=== PATIENT | male | born 1950 | race Caucasian/White ===

== ENCOUNTER 2017-07-09 14:57 | Inpatient (IN) | payer MEDICARE, MEDICAID ==
[~2017-07-09] VITALS: Ht 180.3 cm; Wt 136.4 kg
[~2017-07-09 14:57] MED LIST: ASPI-107 PO; ATOR40TA PO; COMIN IH; DILT240C94 PO; FURO40TA4 PO; GABA-532 PO; GLIM1TAB46 PO; LEVO500T2 PO; LOSA50TA3 PO; METF500T PO; METO25TA6 PO; OMEP40CA37 PO; POTA10TA19 PO; PRED10TA23 PO; RIVA20TA PO
[2017-07-09] MEDS ORDERED: CefTRIAXone 2gm/NS 100ml IVPB 100 ML IV ONE (16:15)
[2017-07-09] MEDS ORDERED: vancomycin/NS 1 GM ADD-VANTAGE 250 ML IV ONE (16:15)
[2017-07-09] MEDS ORDERED: normal saline 1000ML IV soln IV ONE (16:15)
[2017-07-09] MEDS ORDERED: CefTRIAXone/dextrose 2GM bag 50 ML IV ONE (16:25)
[2017-07-09 16:58] LABS: BASOPHILS % (AUTO) 0.1 % (0-1); EOSINOPHILS # (AUTO) 0.3 X10'3 (0-0.9); EOSINOPHILS % (AUTO) 2.3 % (0-6); HEMATOCRIT 36.1 % (42.0-52.0); HEMOGLOBIN 10.7 g/dl (14.0-17.9); LYMPHOCYTES # (AUTO) 0.7 X10'3 (1.1-4.8); LYMPHOCYTES % (AUTO) 5.5 % (21-51); MEAN CORPUSCULAR HEMOGLOBIN 21.5 PG (27.0-31.0); MEAN CORPUSCULAR HGB CONC 29.7 % (33.0-36.5); MEAN CORPUSCULAR VOLUME 72.6 FL (78-98); MEAN PLATELET VOLUME 8.6 FL (7.4-10.4); MONOCYTES # (AUTO) 0.9 X10'3 (0-0.9); MONOCYTES % (AUTO) 6.5 % (2-12); NEUTROPHILS # (AUTO) 11.5 X10'3 (1.8-7.7); NEUTROPHILS % (AUTO) 85.6 % (42-75); PLATELET COUNT 449 X10'3 (140-440); RED BLOOD COUNT 4.98 X10'6 (4.70-6.10); RED CELL DISTRIBUTION WIDTH 20.4 % (11.5-14.5); WHITE BLOOD COUNT 13.5 X10'3 (4.5-11.0)
[2017-07-09 17:04] LABS: INR 1.1 INR; PARTIAL THROMBOPLASTIN TIME 26 SECONDS (22-32); PROTHROMBIN TIME 11.3 SECONDS (9.0-12.0)
[2017-07-09 17:10] LABS: ANISOCYTOSIS 2+; PLATELET ESTIMATE INCREASED
[2017-07-09 17:11] LABS: ELLIPTOCYTES 2+
[2017-07-09 17:12] LABS: POIKILOCYTOSIS FEW; TEAR DROP CELLS 1+
[2017-07-09 17:13] LABS: HYPOCHROMASIA 1+; MICROCYTOSIS 1+; POLYCHROMASIA FEW
[2017-07-09 17:19] LABS: ALANINE AMINOTRANSFERASE 28 U/L (12-78); ALBUMIN 3.2 G/DL (3.4-5.0); ALBUMIN/GLOBULIN RATIO 0.9 (1.1-1.5); ALKALINE PHOSPHATASE 80 IU/L (46-116); ANION GAP 4 (8-16); ASPARTATE AMINO TRANSFERASE 13 U/L (10-37); BILIRUBIN,TOTAL 0.4 MG/DL (0.1-1.0); BLOOD UREA NITROGEN 16 MG/DL (7-18); BUN/CREATININE RATIO 13.7 (5.4-32.0); CALCIUM 9.7 MG/DL (8.5-10.1); CHLORIDE 102 MMOL/L (99-107); CREATININE 1.17 MG/DL (0.60-1.10); GLUCOSE 238 MG/DL (70-104); MAGNESIUM 1.9 MG/DL (1.5-2.4); POTASSIUM 4.8 MMOL/L (3.5-5.1); SODIUM 145 MMOL/L (135-145); TOTAL CARBON DIOXIDE 39.2 MMOL/L (24-32); TOTAL PROTEIN 6.9 G/DL (6.4-8.2); eGFR 63 ML/MIN
[2017-07-09] MEDS ORDERED: mag hydrox/Alum hydrox/simeth 30ml oral suspension PO PRN (17:50)
[2017-07-09] MEDS ORDERED: diphenhydrAMINE 50 mg/ml inj IV PRN (17:50)
[2017-07-09] MEDS ORDERED: ondansetron/PF 4mg/2ml inj IV PRN (17:50)
[2017-07-09] MEDS ORDERED: bisacodyl 10mg suppository rectal RC PRN (17:50)
[2017-07-09] MEDS ORDERED: diphenhydrAMINE 25mg capsule PO PRN (17:50)
[2017-07-09] MEDS ORDERED: HYDROcodone/acetaminophen 5mg/325mg tablet PO PRN (17:50)
[2017-07-09] MEDS ORDERED: glucagon, human recombinant 1mg kit SUBCUT PRN (17:50)
[2017-07-09] MEDS ORDERED: dextrose 50%-water 50ml dispensing syringe IV PRN ×2 (17:50)
[2017-07-09] MEDS ORDERED: HYDROmorphone 1 mg/ml syringe IV PRN ×2 (17:50)
[2017-07-09] MEDS ORDERED: dextrose ORAL solution 15 GM/59 ML bottle PO PRN ×2 (17:50)
[2017-07-09] MEDS ORDERED: magnesium hydroxide 30ml (MOM) UD suspension PO PRN (17:50)
[2017-07-09] MEDS ORDERED: acetaminophen 325mg tablet PO PRN ×2 (17:50)
[2017-07-09] MEDS ORDERED: metoclopramide 5 mg/ml inj IV PRN (17:50)
[2017-07-09] MEDS ORDERED: acetaminophen 650mg rectal suppository RC PRN (17:50)
[2017-07-09] MEDS ORDERED: MESSAGE TO PHARMACY PO ONE (17:50)
[2017-07-09] MEDS ORDERED: ipratropium/albuterol 3ml nebule IH PRN (17:55)
[2017-07-09] MEDS ORDERED: piperacillin/tazo 4.5gm/100ml 100 ML IV SCH (18:05)
[2017-07-09] MEDS: HYDROcodone/acetaminophen 10/325mg tab PO PRN ×2 (18:41→23:15)
[2017-07-09] MEDS ORDERED: vancomycin/NS 1 GM ADD-VANTAGE 250 ML IV SCH (20:00)
[2017-07-09] MEDS: metoprolol tartrate 25mg tablet PO SCH (20:00)
[2017-07-09] MEDS: gabapentin 300mg capsule PO SCH (20:04)
[2017-07-09] MEDS: docusate sod 100mg capsule PO SCH (20:05)
[2017-07-09] MEDS ORDERED: temazepam 15mg capsule PO PRN (21:00)
[2017-07-09] MEDS: rivaroxaban 20mg tablet PO SCH (21:13)
[2017-07-09] MEDS: Insulin Detemir pen SQ SCH (21:28)
[2017-07-09 22:30] VITALS: BP 139/93
[2017-07-10] MEDS ORDERED: piperacillin/tazo 4.5gm/100ml 100 ML IV ONE (02:43)
[2017-07-10] MEDS: piperacillin/tazo 4.5gm/100ml 100 ML IV SCH ×3 (02:50→20:59)
[2017-07-10 05:14] LABS: BASOPHILS % (AUTO) 0 % (0-1); EOSINOPHILS # (AUTO) 0.2 X10'3 (0-0.9); HEMATOCRIT 33.7 % (42.0-52.0); HEMOGLOBIN 9.7 g/dl (14.0-17.9); LYMPHOCYTES # (AUTO) 1.1 X10'3 (1.1-4.8); LYMPHOCYTES % (AUTO) 10.2 % (21-51); MEAN CORPUSCULAR HEMOGLOBIN 21.4 PG (27.0-31.0); MEAN CORPUSCULAR HGB CONC 28.7 % (33.0-36.5); MEAN CORPUSCULAR VOLUME 74.6 FL (78-98); MEAN PLATELET VOLUME 8.4 FL (7.4-10.4); NEUTROPHILS # (AUTO) 8.6 X10'3 (1.8-7.7); NEUTROPHILS % (AUTO) 78.8 % (42-75); PLATELET COUNT 378 X10'3 (140-440); RED BLOOD COUNT 4.53 X10'6 (4.70-6.10); RED CELL DISTRIBUTION WIDTH 20.6 % (11.5-14.5); WHITE BLOOD COUNT 10.9 X10'3 (4.5-11.0)
[2017-07-10 05:40] LABS: ALANINE AMINOTRANSFERASE 20 U/L (12-78); ALBUMIN 2.7 G/DL (3.4-5.0); ALBUMIN/GLOBULIN RATIO 0.8 (1.1-1.5); ALKALINE PHOSPHATASE 55 IU/L (46-116); ANION GAP 3 (8-16); ASPARTATE AMINO TRANSFERASE 14 U/L (10-37); BILIRUBIN,TOTAL 0.3 MG/DL (0.1-1.0); BLOOD UREA NITROGEN 15 MG/DL (7-18); CALCIUM 8.6 MG/DL (8.5-10.1); CHLORIDE 106 MMOL/L (99-107); CREATININE 0.88 MG/DL (0.60-1.10); GLUCOSE 158 MG/DL (70-104); POTASSIUM 4.5 MMOL/L (3.5-5.1); SODIUM 143 MMOL/L (135-145); TOTAL CARBON DIOXIDE 33.7 MMOL/L (24-32); TOTAL PROTEIN 6.1 G/DL (6.4-8.2); eGFR 87 ML/MIN
[2017-07-10 07:00] VITALS: BP 138/91
[2017-07-10] MEDS: pantoprazole 40mg Tablet.DR PO SCH (07:54)
[2017-07-10] MEDS: aspirin 81mg tab.chew PO SCH (07:54)
[2017-07-10] MEDS: metoprolol tartrate 25mg tablet PO SCH ×2 (07:54→21:00)
[2017-07-10] MEDS: atorvastatin 20mg tablet PO SCH (07:54)
[2017-07-10] MEDS: diltiazem CD 120mg capsule (once-daily) PO SCH (07:55)
[2017-07-10] MEDS: docusate sod 100mg capsule PO SCH ×2 (07:55→20:00)
[2017-07-10] MEDS: gabapentin 300mg capsule PO SCH ×2 (07:55→21:00)
[2017-07-10] MEDS: losartan 50mg tablet PO SCH (07:55)
[2017-07-10 11:00] VITALS: BP 141/79
[2017-07-10] MEDS: HYDROcodone/acetaminophen 10/325mg tab PO PRN (12:14)
[2017-07-10] MEDS: insulin Lispro (HumaLOG) vial - multi-dose SQ SCH ×2 (13:21→19:12)
[2017-07-10] MEDS: lactobacillus rhamnosus 10,000 MMU CELLS/CAPSULE PO SCH (17:37)
[2017-07-10 19:25] VITALS: BP 141/88
[2017-07-10] MEDS: rivaroxaban 20mg tablet PO SCH (21:00)
[2017-07-10] MEDS: Insulin Detemir pen SQ SCH (21:18)
[2017-07-11] VITALS: BP 126/60
[2017-07-11] MEDS ORDERED: piperacillin/tazo 4.5gm/100ml 100 ML IV ONE (04:36)
[2017-07-11] MEDS: piperacillin/tazo 4.5gm/100ml 100 ML IV SCH ×3 (04:40→19:57)
[2017-07-11 06:07] LABS: BASOPHILS % (AUTO) 0.1 % (0-1); EOSINOPHILS # (AUTO) 0.3 X10'3 (0-0.9); EOSINOPHILS % (AUTO) 3.5 % (0-6); HEMATOCRIT 33.1 % (42.0-52.0); HEMOGLOBIN 9.7 g/dl (14.0-17.9); LYMPHOCYTES # (AUTO) 1.1 X10'3 (1.1-4.8); LYMPHOCYTES % (AUTO) 11.2 % (21-51); MEAN CORPUSCULAR HEMOGLOBIN 21.4 PG (27.0-31.0); MEAN CORPUSCULAR HGB CONC 29.2 % (33.0-36.5); MEAN CORPUSCULAR VOLUME 73.4 FL (78-98); MEAN PLATELET VOLUME 8.5 FL (7.4-10.4); MONOCYTES # (AUTO) 0.8 X10'3 (0-0.9); MONOCYTES % (AUTO) 8.4 % (2-12); NEUTROPHILS # (AUTO) 7.5 X10'3 (1.8-7.7); NEUTROPHILS % (AUTO) 76.8 % (42-75); PLATELET COUNT 378 X10'3 (140-440); RED BLOOD COUNT 4.51 X10'6 (4.70-6.10); RED CELL DISTRIBUTION WIDTH 20.9 % (11.5-14.5); WHITE BLOOD COUNT 9.8 X10'3 (4.5-11.0)
[2017-07-11 06:57] LABS: ALANINE AMINOTRANSFERASE 16 U/L (12-78); ALBUMIN 2.9 G/DL (3.4-5.0); ALBUMIN/GLOBULIN RATIO 0.8 (1.1-1.5); ALKALINE PHOSPHATASE 49 IU/L (46-116); ANION GAP 3 (8-16); ASPARTATE AMINO TRANSFERASE 9 U/L (10-37); BILIRUBIN,TOTAL 0.4 MG/DL (0.1-1.0); BLOOD UREA NITROGEN 13 MG/DL (7-18); BUN/CREATININE RATIO 14.3 (5.4-32.0); CHLORIDE 106 MMOL/L (99-107); CREATININE 0.91 MG/DL (0.60-1.10); GLUCOSE 115 MG/DL (70-104); SODIUM 146 MMOL/L (135-145); TOTAL CARBON DIOXIDE 36.7 MMOL/L (24-32); TOTAL PROTEIN 6.4 G/DL (6.4-8.2); eGFR 84 ML/MIN
[2017-07-11] MEDS: lactobacillus rhamnosus 10,000 MMU CELLS/CAPSULE PO SCH (07:30)
[2017-07-11 07:50] VITALS: BP 140/89
[2017-07-11] MEDS: docusate sod 100mg capsule PO SCH ×2 (08:00→20:00)
[2017-07-11] MEDS: metoprolol tartrate 25mg tablet PO SCH ×2 (08:08→22:10)
[2017-07-11] MEDS: insulin Lispro (HumaLOG) vial - multi-dose SQ SCH ×3 (08:08→19:29)
[2017-07-11] MEDS: losartan 50mg tablet PO SCH (08:08)
[2017-07-11] MEDS: diltiazem CD 120mg capsule (once-daily) PO SCH (08:08)
[2017-07-11] MEDS: gabapentin 300mg capsule PO SCH ×2 (08:08→22:11)
[2017-07-11] MEDS: aspirin 81mg tab.chew PO SCH (08:09)
[2017-07-11] MEDS: atorvastatin 20mg tablet PO SCH (08:09)
[2017-07-11] MEDS: pantoprazole 40mg Tablet.DR PO SCH (08:09)
[2017-07-11] MEDS: silver sulfadiazine cream 400gm jar TP SCH (08:10)
[2017-07-11 08:36] LABS: CLARITY,URINE SLIGHTLY CLOUDY (Clear); COLOR,URINE YELLOW (Yellow); GLUCOSE, URINE NEGATIVE (Neg); KETONES,URINE NEGATIVE (Neg); LEUKOCYTE ESTERASE ,URINE NEGATIVE (Neg); NITRITES, URINE NEGATIVE (Neg); OCCULT BLOOD,URINE NEGATIVE (Neg); PH,URINE 5.5 (4.8-8.0); PROTEIN,URINE TRACE mg/dl (Neg); UROBILINOGEN,URINE 0.2 E.U/dL (0.2-1.0)
[2017-07-11 08:37] LABS: UA COLLECTION TYPE URINAL
[2017-07-11 08:51] LABS: CAL OXALATE CRYSTALS 4+ /HPF (NEGATIVE)
[2017-07-11 08:53] LABS: URIC ACID CRYSTALS FEW /HPF (NEGATIVE)
[2017-07-11 08:54] LABS: BACTERIA,URINE FEW /HPF (Neg); MUCUS STRANDS FEW /LPF (Neg); RBC,URINE 0-2 /HPF (0-2); SQUAMOUS EPITHELIAL CELL,UR FEW /LPF (FEW); TRANSITIONAL EPI CELLS,URINE FEW /HPF; WBC,URINE 0-4 /HPF (0-4)
[2017-07-11] MEDS ORDERED: VANCOMYCIN LEVEL IV ONE (09:30)
[2017-07-11 11:00] VITALS: BP 127/80
[2017-07-11] MEDS ORDERED: furosemide 40mg/4ml inj IV ONE (16:10)
[2017-07-11 19:20] VITALS: BP 150/65
[2017-07-11] MEDS: rivaroxaban 20mg tablet PO SCH (22:10)
[2017-07-11] MEDS: furosemide 40mg/4ml inj IV SCH (22:10)
[2017-07-11] MEDS: Insulin Detemir pen SQ SCH (22:10)
[2017-07-11 23:45] VITALS: BP 152/88
[2017-07-12] MEDS: piperacillin/tazo 4.5gm/100ml 100 ML IV SCH ×2 (04:15→13:30)
[2017-07-12 06:00] LABS: BASOPHILS % (AUTO) 0 % (0-1); EOSINOPHILS # (AUTO) 0.3 X10'3 (0-0.9); EOSINOPHILS % (AUTO) 3.6 % (0-6); HEMATOCRIT 32.8 % (42.0-52.0); HEMOGLOBIN 9.7 g/dl (14.0-17.9); LYMPHOCYTES # (AUTO) 0.7 X10'3 (1.1-4.8); LYMPHOCYTES % (AUTO) 7.5 % (21-51); MEAN CORPUSCULAR HEMOGLOBIN 21.6 PG (27.0-31.0); MEAN CORPUSCULAR HGB CONC 29.5 % (33.0-36.5); MEAN CORPUSCULAR VOLUME 73.2 FL (78-98); MEAN PLATELET VOLUME 8.3 FL (7.4-10.4); MONOCYTES # (AUTO) 0.9 X10'3 (0-0.9); MONOCYTES % (AUTO) 9.6 % (2-12); NEUTROPHILS # (AUTO) 7.2 X10'3 (1.8-7.7); NEUTROPHILS % (AUTO) 79.3 % (42-75); PLATELET COUNT 373 X10'3 (140-440); RED BLOOD COUNT 4.48 X10'6 (4.70-6.10); WHITE BLOOD COUNT 9.1 X10'3 (4.5-11.0)
[2017-07-12 06:20] LABS: ALANINE AMINOTRANSFERASE 30 U/L (12-78); ALBUMIN 2.8 G/DL (3.4-5.0); ALBUMIN/GLOBULIN RATIO 0.8 (1.1-1.5); ALKALINE PHOSPHATASE 49 IU/L (46-116); ANION GAP 2 (8-16); ASPARTATE AMINO TRANSFERASE 21 U/L (10-37); BILIRUBIN,TOTAL 0.3 MG/DL (0.1-1.0); BLOOD UREA NITROGEN 9 MG/DL (7-18); BUN/CREATININE RATIO 9.3 (5.4-32.0); CALCIUM 8.5 MG/DL (8.5-10.1); CHLORIDE 106 MMOL/L (99-107); CREATININE 0.97 MG/DL (0.60-1.10); GLUCOSE 130 MG/DL (70-104); SODIUM 147 MMOL/L (135-145); TOTAL CARBON DIOXIDE 39.4 MMOL/L (24-32); TOTAL PROTEIN 6.3 G/DL (6.4-8.2); eGFR 78 ML/MIN
[2017-07-12 07:00] VITALS: BP 116/70
[2017-07-12] MEDS: LACTOBACILLUS RHAMNOSUS GG 15 billion unit sprinkle caps PO SCH (08:41)
[2017-07-12] MEDS: furosemide 40mg/4ml inj IV SCH ×2 (08:41→20:36)
[2017-07-12] MEDS: docusate sod 100mg capsule PO SCH ×2 (08:42→20:00)
[2017-07-12] MEDS: atorvastatin 20mg tablet PO SCH (08:42)
[2017-07-12] MEDS: metoprolol tartrate 25mg tablet PO SCH ×2 (08:42→20:36)
[2017-07-12] MEDS: diltiazem CD 120mg capsule (once-daily) PO SCH (08:42)
[2017-07-12] MEDS: aspirin 81mg tab.chew PO SCH (08:42)
[2017-07-12] MEDS: pantoprazole 40mg Tablet.DR PO SCH (08:43)
[2017-07-12] MEDS: gabapentin 300mg capsule PO SCH ×2 (08:43→20:36)
[2017-07-12] MEDS: losartan 50mg tablet PO SCH (08:43)
[2017-07-12] MEDS: insulin Lispro (HumaLOG) vial - multi-dose SQ SCH ×3 (09:36→19:13)
[2017-07-12 11:00] VITALS: BP 112/75
[2017-07-12] MEDS: HYDROcodone/acetaminophen 10/325mg tab PO PRN ×2 (14:33→20:36)
[2017-07-12] MEDS: silver sulfadiazine cream 400gm jar TP SCH (16:00)
[2017-07-12] MEDS: CefTRIAXone 2gm/D5W 50ml ADVTG 50 ML IV SCH (16:54)
[2017-07-12 18:00] VITALS: BP 110/68
[2017-07-12] MEDS: rivaroxaban 20mg tablet PO SCH (20:36)
[2017-07-12] MEDS: Insulin Detemir pen SQ SCH (21:20)
[2017-07-12 23:44] VITALS: BP 119/73
[2017-07-13] MEDS: HYDROcodone/acetaminophen 10/325mg tab PO PRN ×5 (02:30→21:56)
[2017-07-13 05:17] LABS: BASOPHILS % (AUTO) 0 % (0-1); EOSINOPHILS # (AUTO) 0.2 X10'3 (0-0.9); EOSINOPHILS % (AUTO) 2.8 % (0-6); HEMATOCRIT 32.3 % (42.0-52.0); HEMOGLOBIN 9.5 g/dl (14.0-17.9); LYMPHOCYTES % (AUTO) 12.1 % (21-51); MEAN CORPUSCULAR HEMOGLOBIN 21.6 PG (27.0-31.0); MEAN CORPUSCULAR HGB CONC 29.5 % (33.0-36.5); MEAN CORPUSCULAR VOLUME 73.2 FL (78-98); MEAN PLATELET VOLUME 8.4 FL (7.4-10.4); MONOCYTES # (AUTO) 0.7 X10'3 (0-0.9); MONOCYTES % (AUTO) 8.6 % (2-12); NEUTROPHILS # (AUTO) 6.4 X10'3 (1.8-7.7); NEUTROPHILS % (AUTO) 76.5 % (42-75); PLATELET COUNT 388 X10'3 (140-440); RED BLOOD COUNT 4.41 X10'6 (4.70-6.10); RED CELL DISTRIBUTION WIDTH 20.3 % (11.5-14.5); WHITE BLOOD COUNT 8.4 X10'3 (4.5-11.0)
[2017-07-13 06:06] LABS: ALANINE AMINOTRANSFERASE 32 U/L (12-78); ALBUMIN 2.6 G/DL (3.4-5.0); ALBUMIN/GLOBULIN RATIO 0.7 (1.1-1.5); ALKALINE PHOSPHATASE 48 IU/L (46-116); ANION GAP 3 (8-16); ASPARTATE AMINO TRANSFERASE 16 U/L (10-37); BILIRUBIN,TOTAL 0.4 MG/DL (0.1-1.0); BLOOD UREA NITROGEN 15 MG/DL (7-18); BUN/CREATININE RATIO 15.2 (5.4-32.0); CALCIUM 8.8 MG/DL (8.5-10.1); CHLORIDE 106 MMOL/L (99-107); CREATININE 0.99 MG/DL (0.60-1.10); GLUCOSE 139 MG/DL (70-104); POTASSIUM 3.9 MMOL/L (3.5-5.1); SODIUM 148 MMOL/L (135-145); TOTAL CARBON DIOXIDE 38.7 MMOL/L (24-32); TOTAL PROTEIN 6.3 G/DL (6.4-8.2); eGFR 76 ML/MIN
[2017-07-13 06:30] VITALS: BP 134/77
[2017-07-13] MEDS: CefTRIAXone 2gm/D5W 50ml ADVTG 50 ML IV SCH (07:39)
[2017-07-13] MEDS: LACTOBACILLUS RHAMNOSUS GG 15 billion unit sprinkle caps PO SCH (07:39)
[2017-07-13] MEDS: gabapentin 300mg capsule PO SCH ×2 (07:39→19:53)
[2017-07-13] MEDS: pantoprazole 40mg Tablet.DR PO SCH (07:39)
[2017-07-13] MEDS: aspirin 81mg tab.chew PO SCH (07:40)
[2017-07-13] MEDS: losartan 50mg tablet PO SCH (07:40)
[2017-07-13] MEDS: atorvastatin 20mg tablet PO SCH (07:40)
[2017-07-13] MEDS: furosemide 40mg/4ml inj IV SCH ×3 (07:40→21:55)
[2017-07-13] MEDS: metoprolol tartrate 25mg tablet PO SCH ×2 (07:45→19:58)
[2017-07-13 07:48] LABS: ANISOCYTOSIS 2+; HYPOCHROMASIA 1+; MICROCYTOSIS 2+; PLATELET ESTIMATE NORMAL; POIKILOCYTOSIS FEW
[2017-07-13] MEDS: docusate sod 100mg capsule PO SCH ×2 (07:48→20:00)
[2017-07-13] MEDS: diltiazem CD 120mg capsule (once-daily) PO SCH (07:48)
[2017-07-13 07:49] LABS: ACANTHOCYTES FEW; ELLIPTOCYTES 1+; STOMATOCYTES 1+
[2017-07-13] MEDS: silver sulfadiazine cream 400gm jar TP SCH (07:55)
[2017-07-13] MEDS: insulin Lispro (HumaLOG) vial - multi-dose SQ SCH ×3 (09:09→19:56)
[2017-07-13] MEDS ORDERED: VANCOMYCIN LEVEL IV NR (09:30)
[2017-07-13 11:00] VITALS: BP 118/72
[2017-07-13 18:00] VITALS: BP 120/66
[2017-07-13] MEDS: vancomycin/NS 1 GM ADD-VANTAGE 250 ML IV SCH (19:52)
[2017-07-13] MEDS: rivaroxaban 20mg tablet PO SCH (21:51)
[2017-07-13] MEDS: Insulin Detemir pen SQ SCH (21:53)
[2017-07-14] VITALS: BP 133/80
[2017-07-14] MEDS: HYDROcodone/acetaminophen 10/325mg tab PO PRN ×5 (02:01→22:00)
[2017-07-14] MEDS: vancomycin/NS 1 GM ADD-VANTAGE 250 ML IV SCH ×3 (03:32→19:00)
[2017-07-14 05:37] LABS: BASOPHILS % (AUTO) 0.2 % (0-1); EOSINOPHILS # (AUTO) 0.2 X10'3 (0-0.9); EOSINOPHILS % (AUTO) 1.9 % (0-6); HEMATOCRIT 32.7 % (42.0-52.0); HEMOGLOBIN 9.7 g/dl (14.0-17.9); LYMPHOCYTES % (AUTO) 11.3 % (21-51); MEAN CORPUSCULAR HEMOGLOBIN 21.7 PG (27.0-31.0); MEAN CORPUSCULAR HGB CONC 29.8 % (33.0-36.5); MEAN CORPUSCULAR VOLUME 72.7 FL (78-98); MEAN PLATELET VOLUME 8.4 FL (7.4-10.4); MONOCYTES # (AUTO) 0.8 X10'3 (0-0.9); NEUTROPHILS # (AUTO) 6.6 X10'3 (1.8-7.7); NEUTROPHILS % (AUTO) 77.6 % (42-75); PLATELET COUNT 396 X10'3 (140-440); RED CELL DISTRIBUTION WIDTH 21.2 % (11.5-14.5); WHITE BLOOD COUNT 8.5 X10'3 (4.5-11.0)
[2017-07-14 06:15] LABS: ALANINE AMINOTRANSFERASE 32 U/L (12-78); ALBUMIN 2.8 G/DL (3.4-5.0); ALBUMIN/GLOBULIN RATIO 0.7 (1.1-1.5); ALKALINE PHOSPHATASE 46 IU/L (46-116); ANION GAP 3 (8-16); ASPARTATE AMINO TRANSFERASE 18 U/L (10-37); BILIRUBIN,TOTAL 0.3 MG/DL (0.1-1.0); BLOOD UREA NITROGEN 16 MG/DL (7-18); BUN/CREATININE RATIO 17.4 (5.4-32.0); CALCIUM 9.1 MG/DL (8.5-10.1); CHLORIDE 103 MMOL/L (99-107); CREATININE 0.92 MG/DL (0.60-1.10); GLUCOSE 134 MG/DL (70-104); POTASSIUM 3.5 MMOL/L (3.5-5.1); SODIUM 145 MMOL/L (135-145); TOTAL CARBON DIOXIDE 39.2 MMOL/L (24-32); TOTAL PROTEIN 6.7 G/DL (6.4-8.2); eGFR 83 ML/MIN
[2017-07-14 06:30] VITALS: BP 144/78
[2017-07-14] MEDS: metoprolol tartrate 25mg tablet PO SCH ×2 (07:37→20:32)
[2017-07-14] MEDS: gabapentin 300mg capsule PO SCH ×2 (07:37→20:32)
[2017-07-14] MEDS: aspirin 81mg tab.chew PO SCH (07:37)
[2017-07-14] MEDS: docusate sod 100mg capsule PO SCH ×3 (07:37→20:00)
[2017-07-14] MEDS: LACTOBACILLUS RHAMNOSUS GG 15 billion unit sprinkle caps PO SCH (07:38)
[2017-07-14] MEDS: diltiazem CD 120mg capsule (once-daily) PO SCH (07:38)
[2017-07-14] MEDS: atorvastatin 20mg tablet PO SCH (07:38)
[2017-07-14] MEDS: pantoprazole 40mg Tablet.DR PO SCH (07:38)
[2017-07-14] MEDS: furosemide 40mg/4ml inj IV SCH ×3 (07:39→20:31)
[2017-07-14] MEDS: CefTRIAXone 2gm/D5W 50ml ADVTG 50 ML IV SCH (07:39)
[2017-07-14] MEDS: losartan 50mg tablet PO SCH (07:39)
[2017-07-14] MEDS: silver sulfadiazine cream 400gm jar TP SCH (07:51)
[2017-07-14] MEDS: insulin Lispro (HumaLOG) vial - multi-dose SQ SCH ×3 (09:08→18:47)
[2017-07-14 12:00] VITALS: BP 126/77
[2017-07-14] MEDS ORDERED: VANCOMYCIN LEVEL IV NR (18:30)
[2017-07-14 20:00] VITALS: BP 127/88
[2017-07-14] MEDS: rivaroxaban 20mg tablet PO SCH (20:32)
[2017-07-14] MEDS: Insulin Detemir pen SQ SCH (21:20)
[2017-07-15] VITALS: BP 118/72
[2017-07-15] MEDS: HYDROcodone/acetaminophen 10/325mg tab PO PRN ×3 (02:42→13:12)
[2017-07-15] MEDS: vancomycin/NS 1 GM ADD-VANTAGE 250 ML IV SCH (03:05)
[2017-07-15 07:10] VITALS: BP 135/76
[2017-07-15] MEDS: pantoprazole 40mg Tablet.DR PO SCH (07:27)
[2017-07-15] MEDS: gabapentin 300mg capsule PO SCH (07:27)
[2017-07-15] MEDS: LACTOBACILLUS RHAMNOSUS GG 15 billion unit sprinkle caps PO SCH (07:27)
[2017-07-15] MEDS: aspirin 81mg tab.chew PO SCH (07:30)
[2017-07-15] MEDS: diltiazem CD 120mg capsule (once-daily) PO SCH (07:30)
[2017-07-15] MEDS: atorvastatin 20mg tablet PO SCH (07:31)
[2017-07-15] MEDS: docusate sod 100mg capsule PO SCH (07:31)
[2017-07-15] MEDS: losartan 50mg tablet PO SCH (07:31)
[2017-07-15] MEDS: metoprolol tartrate 25mg tablet PO SCH (07:31)
[2017-07-15] MEDS: silver sulfadiazine cream 400gm jar TP SCH (07:31)
[2017-07-15] MEDS: furosemide 40mg/4ml inj IV SCH ×2 (08:00→15:20)
[2017-07-15] MEDS: insulin Lispro (HumaLOG) vial - multi-dose SQ SCH ×2 (09:07→13:10)
[2017-07-15] MEDS ORDERED: vancomycin inj 1,250 MG in normal saline 250ml IV soln 250 ML IV SCH (11:00)
[2017-07-15 11:06] VITALS: BP 134/77
[2017-07-15] MEDS: CefTRIAXone 2gm/D5W 50ml ADVTG 50 ML IV SCH (15:20)
[2017-07-16] MEDS ORDERED: VANCOMYCIN LEVEL IV NR (10:30)
== END 2017-07-15 17:10 | DRG 603 ==
LOC: ER 14:57 → ED HOLD 17:55 → SUR 3N 22:30
PROVIDERS: ADMIT Family Medicine; ATTEND Nurse Practitioner Family
DX: L03.115 Cellulitis of right lower limb (principal); I11.0 Hypertensive heart disease with heart failure; E11.65 Type 2 diabetes mellitus with hyperglycemia; I48.91 Unspecified atrial fibrillation; I50.9 Heart failure, unspecified; E66.2 Morbid (severe) obesity with alveolar hypoventilation; Z68.41 Body mass index [BMI] 40.0-44.9, adult; J44.9 Chronic obstructive pulmonary disease, unspecified; L03.116 Cellulitis of left lower limb; X58.XXXA Exposure to other specified factors, initial encounter; L30.8 Other specified dermatitis; N40.0 Benign prostatic hyperplasia without lower urinary tract symptoms; I25.10 Atherosclerotic heart disease of native coronary artery without angina pectoris; S81.802A Unspecified open wound, left lower leg, initial encounter; S81.801A Unspecified open wound, right lower leg, initial encounter; I87.2 Venous insufficiency (chronic) (peripheral); Z95.1 Presence of aortocoronary bypass graft; Z79.01 Long term (current) use of anticoagulants; Z79.82 Long term (current) use of aspirin; Z79.899 Other long term (current) drug therapy; Z79.84 Long term (current) use of oral hypoglycemic drugs; Z87.891 Personal history of nicotine dependence; Z85.89 Personal history of malignant neoplasm of other organs and systems; Y93.89 Activity, other specified; Y92.89 Other specified places as the place of occurrence of the external cause; Y99.8 Other external cause status
CPT/HCPCS: 36415; 71046; 80053; 80202; 81001; 82948; 83605; 83735; 83880; 84145; 85025; 85610; 85730; 87040; 87070; 93970; 94760; 96365; 96375; 97116; 97162; 99285; A6223; A6255; A6258; A6446; J0696; J1940; J2270; J2543; J3370; J7030

== ENCOUNTER 2017-07-30 02:23 | Inpatient (IN) | payer MEDICARE, MEDICAID ==
[~2017-07-30] VITALS: Ht 182.9 cm; Wt 127.8 kg
[2017-07-30] VITALS (20 sets, daily range): BP systolic 90–164; BP diastolic 46–98
[~2017-07-30 02:23] MED LIST changes: -LEVO500T2 PO
[2017-07-30 02:54] LABS: BASOPHILS % (AUTO) 0.4 % (0-1); EOSINOPHILS # (AUTO) 0.2 X10'3 (0-0.9); HEMOGLOBIN 8.6 g/dl (14.0-17.9); LYMPHOCYTES # (AUTO) 1.5 X10'3 (1.1-4.8); LYMPHOCYTES % (AUTO) 12.6 % (21-51); MEAN CORPUSCULAR HEMOGLOBIN 21.5 PG (27.0-31.0); MEAN CORPUSCULAR HGB CONC 28.7 % (33.0-36.5); MEAN CORPUSCULAR VOLUME 74.9 FL (78-98); MEAN PLATELET VOLUME 8.1 FL (7.4-10.4); MONOCYTES # (AUTO) 1.1 X10'3 (0-0.9); MONOCYTES % (AUTO) 9.3 % (2-12); NEUTROPHILS # (AUTO) 8.9 X10'3 (1.8-7.7); NEUTROPHILS % (AUTO) 75.7 % (42-75); PLATELET COUNT 442 X10'3 (140-440); RED BLOOD COUNT 4.01 X10'6 (4.70-6.10); RED CELL DISTRIBUTION WIDTH 21.3 % (11.5-14.5); WHITE BLOOD COUNT 11.8 X10'3 (4.5-11.0)
[2017-07-30] MEDS: propofol 1000mg/100ml bottle 100 ML IV ONE ×2 (03:02→03:04)
[2017-07-30 03:04] LABS: INR 1.6 INR; PARTIAL THROMBOPLASTIN TIME 36 SECONDS (22-32); PROTHROMBIN TIME 16.6 SECONDS (9.0-12.0)
[2017-07-30] MEDS: midazolam 100mg in NS 100ml 100 ML IV PRN ×2 (03:05→11:01)
[2017-07-30] MEDS: FENTANYL-0.9 % NACL/PF 100 ML IV PRN ×4 (03:06→23:23)
[2017-07-30 03:14] LABS: ALANINE AMINOTRANSFERASE 65 U/L (12-78); ALBUMIN/GLOBULIN RATIO 0.7 (1.1-1.5); ALKALINE PHOSPHATASE 75 IU/L (46-116); ANION GAP 2 (8-16); ASPARTATE AMINO TRANSFERASE 27 U/L (10-37); BILIRUBIN,TOTAL 0.9 MG/DL (0.1-1.0); BLOOD UREA NITROGEN 12 MG/DL (7-18); BUN/CREATININE RATIO 13.3 (5.4-32.0); CHLORIDE 106 MMOL/L (99-107); GLUCOSE 164 MG/DL (70-104); MAGNESIUM 1.9 MG/DL (1.5-2.4); POTASSIUM 4.4 MMOL/L (3.5-5.1); SODIUM 149 MMOL/L (135-145); TOTAL PROTEIN 7.1 G/DL (6.4-8.2); eGFR 85 ML/MIN
[2017-07-30 03:15] LABS: ABG BASE EXCESS 15.4 mmol/L (-2.0-3.0); ABG HCO3 43.7 mmol/L (22.0-26.0); ABG OXYGEN SATURATION 98.5 % (95-98); ABG PCO2 (T) 84.6 mmHg (35.0-48.0); ABG PO2 (T) 137.9 mmHg (83-108); ALLEN'S TEST Positive; FCOHb 1.4 % (0.5-1.5); FMetHb 0.3 % (0.3-1.12); FO2Hb 96.8 % (94-100); MINUTE VOLUME 9 L/min; PATIENT TEMPERATURE 36.9; PEEP 5 cm H2O; RESPIRATORY RATE 18 b/min; RESPIRATORY RATE (OBSERVED) 18 b/min; TIDAL VOLUME 500 mL; TOTAL HEMOGLOBIN 8.4 G/dl (14.0-18.0)
[2017-07-30 03:17] LABS: TOTAL CARBON DIOXIDE 40.8 MMOL/L (24-32)
[2017-07-30] MEDS ORDERED: digoxin 250mcg/ml 2ml ampule IV ONE (03:40)
[2017-07-30] MEDS ORDERED: potassium Cl 40MEQ/NS 500ml 500 ML IV PRN (04:00)
[2017-07-30] MEDS ORDERED: magnesium 4gm in 100ml NS 100 ML IV PRN (04:00)
[2017-07-30] MEDS ORDERED: magnesium 2GM in 50ml NS 50 ML IV PRN (04:00)
[2017-07-30] MEDS ORDERED: ipratropium/albuterol 3ml nebule NEB PRN (04:00)
[2017-07-30] MEDS ORDERED: magnesium 2GM in 50ml NS 50 ML IV ONE (04:15)
[2017-07-30] MEDS ORDERED: furosemide 40mg/4ml inj IV ONE (05:05)
[2017-07-30 05:42] LABS: D-DIMER 0.59 MG/L FEU (0-0.50)
[2017-07-30] MEDS: heparin, porcine 5000 units/ml vial SQ SCH ×2 (07:21→20:11)
[2017-07-30] MEDS: pantoprazole 40 MG vial IV SCH (07:21)
[2017-07-30] MEDS ORDERED: chlorhexidine gluconate 15ml Cup****oral rinse MM SCH (08:00)
[2017-07-30] MEDS ORDERED: rocuronium 10mg/ml inj IV ONE (10:00)
[2017-07-30] MEDS ORDERED: etomidate 2mg/ml inj. ONE (10:00)
[2017-07-30] MEDS ORDERED: NORepinephrine 1 mg/ml inj IV ONE (10:00)
[2017-07-30 16:01] LABS: MAGNESIUM 1.8 MG/DL (1.5-2.4); PHOSPHORUS 1.8 MG/DL (2.3-4.5); POTASSIUM 3.4 MMOL/L (3.5-5.1)
[2017-07-30] MEDS ORDERED: sodium phosphate inj. 30 MMOL in dextrose 5%-water 250 ML IV PRN (16:42)
[2017-07-30] MEDS ORDERED: sodium phosphate inj. 15 MMOL in dextrose 5%-water 150 ML IV PRN (16:42)
[2017-07-30] MEDS: potassium Cl 40MEQ/NS 500ml 500 ML IV PRN (18:04)
[2017-07-30] MEDS ORDERED: potassium Cl oral solution 20 MEQ/15 ML PO PRN (23:25)
[2017-07-30] MEDS ORDERED: potassium Cl oral solution 20 MEQ/15 ML OGT PRN (23:25)
[2017-07-31] VITALS (24 sets, daily range): BP systolic 101–170; BP diastolic 54–89
[2017-07-31 04:40] LABS: ABG BASE EXCESS 11.1 mmol/L (-2.0-3.0); ABG HCO3 34.2 mmol/L (22.0-26.0); ABG OXYGEN SATURATION 92.9 % (95-98); ABG PCO2 (T) 39.8 mmHg (35.0-48.0); ABG PH (T) 7.554 (7.350-7.450); ABG PO2 (T) 64.8 mmHg (83-108); ALLEN'S TEST Positive; FCOHb 1.2 % (0.5-1.5); FMetHb 0.3 % (0.3-1.12); FO2Hb 91.5 % (94-100); MINUTE VOLUME 10 L/min; PATIENT TEMPERATURE 37.5; PEEP 5 cm H2O; RESPIRATORY RATE 20 b/min; RESPIRATORY RATE (OBSERVED) 20 b/min; TIDAL VOLUME 500 mL
[2017-07-31 05:27] LABS: BASOPHILS % (AUTO) 0.4 % (0-1); EOSINOPHILS # (AUTO) 0.1 X10'3 (0-0.9); EOSINOPHILS % (AUTO) 1.3 % (0-6); HEMATOCRIT 26.7 % (42.0-52.0); HEMOGLOBIN 8.1 g/dl (14.0-17.9); LYMPHOCYTES % (AUTO) 12.9 % (21-51); MEAN CORPUSCULAR HEMOGLOBIN 21.8 PG (27.0-31.0); MEAN CORPUSCULAR HGB CONC 30.2 % (33.0-36.5); MEAN CORPUSCULAR VOLUME 72.1 FL (78-98); MEAN PLATELET VOLUME 8.9 FL (7.4-10.4); MONOCYTES # (AUTO) 0.8 X10'3 (0-0.9); MONOCYTES % (AUTO) 10.3 % (2-12); NEUTROPHILS # (AUTO) 5.7 X10'3 (1.8-7.7); NEUTROPHILS % (AUTO) 75.1 % (42-75); PLATELET COUNT 377 X10'3 (140-440); RED BLOOD COUNT 3.71 X10'6 (4.70-6.10); RED CELL DISTRIBUTION WIDTH 21.5 % (11.5-14.5); WHITE BLOOD COUNT 7.6 X10'3 (4.5-11.0)
[2017-07-31 05:37] LABS: INR 1.3 INR; PARTIAL THROMBOPLASTIN TIME 33 SECONDS (22-32); PROTHROMBIN TIME 13.3 SECONDS (9.0-12.0)
[2017-07-31 05:56] LABS: ALANINE AMINOTRANSFERASE 38 U/L (12-78); ALBUMIN 2.2 G/DL (3.4-5.0); ALBUMIN/GLOBULIN RATIO 0.6 (1.1-1.5); ALKALINE PHOSPHATASE 58 IU/L (46-116); ANION GAP 7 (8-16); ASPARTATE AMINO TRANSFERASE 17 U/L (10-37); BILIRUBIN,TOTAL 1.2 MG/DL (0.1-1.0); BLOOD UREA NITROGEN 14 MG/DL (7-18); BUN/CREATININE RATIO 17.5 (5.4-32.0); CALCIUM 8.8 MG/DL (8.5-10.1); CHLORIDE 106 MMOL/L (99-107); GLUCOSE 105 MG/DL (70-104); MAGNESIUM 1.6 MG/DL (1.5-2.4); POTASSIUM 3.6 MMOL/L (3.5-5.1); SODIUM 147 MMOL/L (135-145); TOTAL CARBON DIOXIDE 33.8 MMOL/L (24-32); TOTAL PROTEIN 5.9 G/DL (6.4-8.2); eGFR > 90 ML/MIN
[2017-07-31] MEDS: FENTANYL-0.9 % NACL/PF 100 ML IV PRN ×2 (06:50→20:06)
[2017-07-31] MEDS: heparin, porcine 5000 units/ml vial SQ SCH ×2 (07:32→20:07)
[2017-07-31] MEDS: pantoprazole 40 MG vial IV SCH (07:32)
[2017-07-31] MEDS: Neutra Phos packet PO PRN ×2 (07:32→15:44)
[2017-07-31] MEDS: midazolam 100mg in NS 100ml 100 ML IV PRN (07:34)
[2017-07-31] MEDS ORDERED: furosemide 40mg/4ml inj IV SCH (09:00)
[2017-07-31] MEDS ORDERED: ALBUTEROL SULFATE IH PRN (10:50)
[2017-07-31] MEDS ORDERED: [UNRECOGNIZED DRUG - OTHER] IH PRN (10:50)
[2017-07-31] MEDS ORDERED: IPRATROPIUM IH PRN (10:50)
[2017-07-31] MEDS ORDERED: diltiazem CD 120mg capsule (once-daily) PO SCH (12:00)
[2017-07-31] MEDS ORDERED: levoFLOXACIN-Levaquin 500mg/D5 100 ML IV ONE (12:10)
[2017-07-31] MEDS: diltiazem 30mg tablet PO SCH ×3 (12:27→21:00)
[2017-07-31] MEDS ORDERED: amiodarone 150mg/dext, iso-os 100 ML IV ONE (13:20)
[2017-07-31] MEDS: amiodarone/D5 360MG/200ML BAG 200 ML IV SCH ×2 (14:10→21:08)
[2017-07-31] MEDS ORDERED: METO25TA6 PO (14:57)
[2017-07-31] MEDS ORDERED: VALS160T2 PO (14:57)
[2017-07-31] MEDS ORDERED: RIVA20TA PO (14:57)
[2017-07-31] MEDS: furosemide 40mg/4ml inj IV SCH ×2 (15:44→23:27)
[2017-07-31] MEDS: cefepime 1GM/NS ADD-VANTAGE 100 ML IV SCH ×2 (15:45→23:27)
[2017-07-31] MEDS: lactobacillus rhamnosus 10,000 MMU CELLS/CAPSULE PO SCH (17:16)
[2017-07-31] MEDS: gabapentin 300mg capsule PO SCH (20:06)
[2017-07-31] MEDS: metoprolol tartrate 25mg tablet PO SCH (20:06)
[2017-08-01] VITALS (24 sets, daily range): BP systolic 90–142; BP diastolic 53–75
[2017-08-01 03:27] LABS: BASOPHILS % (AUTO) 0.3 % (0-1); EOSINOPHILS # (AUTO) 0.2 X10'3 (0-0.9); EOSINOPHILS % (AUTO) 2.1 % (0-6); HEMATOCRIT 26.6 % (42.0-52.0); HEMOGLOBIN 8.1 g/dl (14.0-17.9); LYMPHOCYTES # (AUTO) 0.8 X10'3 (1.1-4.8); LYMPHOCYTES % (AUTO) 10.3 % (21-51); MEAN CORPUSCULAR HEMOGLOBIN 21.8 PG (27.0-31.0); MEAN CORPUSCULAR HGB CONC 30.6 % (33.0-36.5); MEAN CORPUSCULAR VOLUME 71.2 FL (78-98); MEAN PLATELET VOLUME 8.4 FL (7.4-10.4); MONOCYTES # (AUTO) 0.8 X10'3 (0-0.9); MONOCYTES % (AUTO) 9.9 % (2-12); NEUTROPHILS # (AUTO) 6.1 X10'3 (1.8-7.7); NEUTROPHILS % (AUTO) 77.4 % (42-75); PLATELET COUNT 427 X10'3 (140-440); RED BLOOD COUNT 3.74 X10'6 (4.70-6.10); RED CELL DISTRIBUTION WIDTH 22.6 % (11.5-14.5); WHITE BLOOD COUNT 7.9 X10'3 (4.5-11.0)
[2017-08-01 03:34] LABS: INR 1.2 INR; PARTIAL THROMBOPLASTIN TIME 33 SECONDS (22-32); PROTHROMBIN TIME 12.8 SECONDS (9.0-12.0)
[2017-08-01 03:40] LABS: ANISOCYTOSIS 3+; PLATELET ESTIMATE NORMAL
[2017-08-01 03:41] LABS: ELLIPTOCYTES 2+; POLYCHROMASIA FEW
[2017-08-01 03:43] LABS: SCHISTOCYTES FEW
[2017-08-01 03:44] LABS: HYPOCHROMASIA 2+
[2017-08-01 03:45] LABS: LARGE PLATELETS FEW
[2017-08-01 03:54] LABS: ALANINE AMINOTRANSFERASE 30 U/L (12-78); ALBUMIN 2.1 G/DL (3.4-5.0); ALBUMIN/GLOBULIN RATIO 0.6 (1.1-1.5); ALKALINE PHOSPHATASE 55 IU/L (46-116); ANION GAP 5 (8-16); ASPARTATE AMINO TRANSFERASE 11 U/L (10-37); BILIRUBIN,TOTAL 0.8 MG/DL (0.1-1.0); BLOOD UREA NITROGEN 17 MG/DL (7-18); CALCIUM 8.6 MG/DL (8.5-10.1); CHLORIDE 103 MMOL/L (99-107); GLUCOSE 148 MG/DL (70-104); MAGNESIUM 1.7 MG/DL (1.5-2.4); PHOSPHORUS 2.8 MG/DL (2.3-4.5); PREALBUMIN 7.5 MG/DL (19-36); SODIUM 145 MMOL/L (135-145); TOTAL CARBON DIOXIDE 37.2 MMOL/L (24-32); TOTAL PROTEIN 5.9 G/DL (6.4-8.2); eGFR 75 ML/MIN
[2017-08-01 04:06] LABS: ABG BASE EXCESS 11.4 mmol/L (-2.0-3.0); ABG HCO3 35.9 mmol/L (22.0-26.0); ABG OXYGEN SATURATION 90.4 % (95-98); ABG PCO2 (T) 49.5 mmHg (35.0-48.0); ABG PH (T) 7.481 (7.350-7.450); ABG PO2 (T) 62.4 mmHg (83-108); ALLEN'S TEST Positive; FMetHb 0.3 % (0.3-1.12); FO2Hb 89.2 % (94-100); MINUTE VOLUME 9 L/min; PATIENT TEMPERATURE 37.7; PEEP 5 cm H2O; RESPIRATORY RATE 16 b/min; RESPIRATORY RATE (OBSERVED) 16 b/min; TIDAL VOLUME 500 mL; TOTAL HEMOGLOBIN 9.2 G/dl (14.0-18.0)
[2017-08-01] MEDS: midazolam 100mg in NS 100ml 100 ML IV PRN (04:06)
[2017-08-01] MEDS: amiodarone/D5 360MG/200ML BAG 200 ML IV SCH (07:38)
[2017-08-01] MEDS: cefepime 1GM/NS ADD-VANTAGE 100 ML IV SCH ×2 (08:05→16:15)
[2017-08-01] MEDS: heparin, porcine 5000 units/ml vial SQ SCH (08:06)
[2017-08-01] MEDS: pantoprazole 40 MG vial IV SCH (08:06)
[2017-08-01] MEDS: lactobacillus rhamnosus 10,000 MMU CELLS/CAPSULE PO SCH ×2 (08:06→17:56)
[2017-08-01] MEDS: furosemide 40mg/4ml inj IV SCH ×2 (08:06→16:15)
[2017-08-01] MEDS: gabapentin 300mg capsule PO SCH ×2 (08:06→20:15)
[2017-08-01] MEDS: aspirin 81mg tab.chew PO SCH (08:07)
[2017-08-01] MEDS: atorvastatin 20mg tablet PO SCH (08:07)
[2017-08-01] MEDS: diltiazem 30mg tablet PO SCH ×4 (08:07→21:00)
[2017-08-01] MEDS: metoprolol tartrate 25mg tablet PO SCH ×2 (10:36→20:00)
[2017-08-01] MEDS: levoFLOXACIN-Levaquin 500mg/D5 100 ML IV SCH (10:36)
[2017-08-01] MEDS: potassium Cl oral solution 20 MEQ/15 ML PO PRN ×2 (10:38→15:14)
[2017-08-01] MEDS: dexmedetomidin/NS 400mcg/100ml 100 ML IV SCH ×2 (13:35→22:51)
[2017-08-01] MEDS ORDERED: insulin regular, human vial - multi-dose SQ SCH (14:55)
[2017-08-01] MEDS ORDERED: dextrose ORAL solution 15 GM/59 ML bottle PO PRN ×2 (14:55)
[2017-08-01] MEDS ORDERED: MESSAGE TO PHARMACY PO ONE (14:55)
[2017-08-01] MEDS ORDERED: dextrose 50%-water 50ml dispensing syringe IV PRN ×2 (14:55)
[2017-08-01] MEDS ORDERED: glucagon, human recombinant 1mg kit SUBCUT PRN (14:55)
[2017-08-01] MEDS: rivaroxaban 20mg tablet PO SCH (20:15)
[2017-08-01] MEDS: amiodarone 200mg tablet PO SCH (20:16)
[2017-08-01] MEDS: mineral oil/petrolatum, white cream 113gm jar TP SCH (20:22)
[2017-08-01] MEDS: insulin glargine (Lantus) pen - multi-dose SQ SCH (21:00)
[2017-08-02] VITALS (24 sets, daily range): BP systolic 85–145; BP diastolic 49–101
[2017-08-02] MEDS: furosemide 40mg/4ml inj IV SCH ×3 (00:16→17:40)
[2017-08-02] MEDS: cefepime 1GM/NS ADD-VANTAGE 100 ML IV SCH ×3 (00:23→17:43)
[2017-08-02 04:00] LABS: ABG BASE EXCESS 9.4 mmol/L (-2.0-3.0); ABG HCO3 33.3 mmol/L (22.0-26.0); ABG OXYGEN SATURATION 88.7 % (95-98); ABG PCO2 (T) 43.4 mmHg (35.0-48.0); ABG PH (T) 7.505 (7.350-7.450); ABG PO2 (T) 57.1 mmHg (83-108); ALLEN'S TEST Positive; FCOHb 0.7 % (0.5-1.5); FMetHb 0.2 % (0.3-1.12); FO2Hb 87.9 % (94-100); MINUTE VOLUME 9 L/min; PATIENT TEMPERATURE 37.4; PEEP 5 cm H2O; RESPIRATORY RATE 14 b/min; RESPIRATORY RATE (OBSERVED) 14 b/min; TIDAL VOLUME 500 mL; TOTAL HEMOGLOBIN 9.7 G/dl (14.0-18.0)
[2017-08-02 06:00] LABS: BASOPHILS % (AUTO) 0.2 % (0-1); EOSINOPHILS # (AUTO) 0.1 X10'3 (0-0.9); EOSINOPHILS % (AUTO) 1.4 % (0-6); HEMATOCRIT 30.8 % (42.0-52.0); HEMOGLOBIN 9.4 g/dl (14.0-17.9); LYMPHOCYTES % (AUTO) 10.1 % (21-51); MEAN CORPUSCULAR HEMOGLOBIN 21.7 PG (27.0-31.0); MEAN CORPUSCULAR HGB CONC 30.6 % (33.0-36.5); NEUTROPHILS # (AUTO) 7.7 X10'3 (1.8-7.7); NEUTROPHILS % (AUTO) 78.3 % (42-75); PLATELET COUNT 451 X10'3 (140-440); RED BLOOD COUNT 4.34 X10'6 (4.70-6.10); RED CELL DISTRIBUTION WIDTH 22.4 % (11.5-14.5); WHITE BLOOD COUNT 9.9 X10'3 (4.5-11.0)
[2017-08-02 06:06] LABS: INR 1.4 INR; PARTIAL THROMBOPLASTIN TIME 37 SECONDS (22-32); PROTHROMBIN TIME 14.7 SECONDS (9.0-12.0)
[2017-08-02 06:30] LABS: ALANINE AMINOTRANSFERASE 28 U/L (12-78); ALBUMIN 2.1 G/DL (3.4-5.0); ALBUMIN/GLOBULIN RATIO 0.5 (1.1-1.5); ALKALINE PHOSPHATASE 84 IU/L (46-116); ANION GAP 6 (8-16); ASPARTATE AMINO TRANSFERASE 17 U/L (10-37); BILIRUBIN,TOTAL 0.6 MG/DL (0.1-1.0); BLOOD UREA NITROGEN 20 MG/DL (7-18); CALCIUM 8.7 MG/DL (8.5-10.1); CHLORIDE 104 MMOL/L (99-107); GLUCOSE 195 MG/DL (70-104); MAGNESIUM 1.9 MG/DL (1.5-2.4); PHOSPHORUS 2.5 MG/DL (2.3-4.5); POTASSIUM 3.5 MMOL/L (3.5-5.1); SODIUM 144 MMOL/L (135-145); TOTAL CARBON DIOXIDE 33.7 MMOL/L (24-32); TOTAL PROTEIN 6.6 G/DL (6.4-8.2); eGFR 75 ML/MIN
[2017-08-02] MEDS: lactobacillus rhamnosus 10,000 MMU CELLS/CAPSULE PO SCH ×2 (07:57→17:40)
[2017-08-02] MEDS: aspirin 81mg tab.chew PO SCH (07:57)
[2017-08-02] MEDS: gabapentin 300mg capsule PO SCH ×2 (07:57→20:24)
[2017-08-02] MEDS: diltiazem 30mg tablet PO SCH ×4 (07:57→21:00)
[2017-08-02] MEDS: amiodarone 200mg tablet PO SCH ×2 (07:57→20:24)
[2017-08-02] MEDS: metoprolol tartrate 25mg tablet PO SCH ×2 (07:57→20:24)
[2017-08-02] MEDS: atorvastatin 20mg tablet PO SCH (07:57)
[2017-08-02] MEDS: pantoprazole 40 MG vial IV SCH (07:58)
[2017-08-02] MEDS: levoFLOXACIN-Levaquin 500mg/D5 100 ML IV SCH (07:58)
[2017-08-02] MEDS: mineral oil/petrolatum, white cream 113gm jar TP SCH ×2 (08:52→20:24)
[2017-08-02] MEDS: dexmedetomidin/NS 400mcg/100ml 100 ML IV SCH ×2 (11:08→20:26)
[2017-08-02] MEDS: rivaroxaban 20mg tablet PO SCH (20:24)
[2017-08-02] MEDS: nystatin 15 GM powder TP SCH (20:24)
[2017-08-02] MEDS: insulin glargine (Lantus) pen - multi-dose SQ SCH (20:25)
[2017-08-03] VITALS (24 sets, daily range): BP systolic 98–166; BP diastolic 55–82
[2017-08-03 03:46] LABS: ABG BASE EXCESS 7.9 mmol/L (-2.0-3.0); ABG HCO3 31.8 mmol/L (22.0-26.0); ABG OXYGEN SATURATION 93.1 % (95-98); ABG PCO2 (T) 43.1 mmHg (35.0-48.0); ABG PH (T) 7.489 (7.350-7.450); ABG PO2 (T) 71.3 mmHg (83-108); ALLEN'S TEST Positive; FCOHb 0.7 % (0.5-1.5); FMetHb 0.1 % (0.3-1.12); FO2Hb 92.4 % (94-100); MINUTE VOLUME 9 L/min; PATIENT TEMPERATURE 37.8; PEEP 5 cm H2O; RESPIRATORY RATE 10 b/min; RESPIRATORY RATE (OBSERVED) 20 b/min; TIDAL VOLUME 450 mL; TOTAL HEMOGLOBIN 9.4 G/dl (14.0-18.0)
[2017-08-03] MEDS: dexmedetomidin/NS 400mcg/100ml 100 ML IV SCH (04:11)
[2017-08-03 06:40] LABS: BASOPHILS % (AUTO) 0.3 % (0-1); EOSINOPHILS # (AUTO) 0.2 X10'3 (0-0.9); EOSINOPHILS % (AUTO) 2.4 % (0-6); HEMATOCRIT 29.8 % (42.0-52.0); LYMPHOCYTES # (AUTO) 1.1 X10'3 (1.1-4.8); MEAN CORPUSCULAR HEMOGLOBIN 21.5 PG (27.0-31.0); MEAN CORPUSCULAR HGB CONC 30.3 % (33.0-36.5); MEAN CORPUSCULAR VOLUME 70.9 FL (78-98); MEAN PLATELET VOLUME 9.1 FL (7.4-10.4); MONOCYTES # (AUTO) 1.1 X10'3 (0-0.9); NEUTROPHILS # (AUTO) 7.4 X10'3 (1.8-7.7); NEUTROPHILS % (AUTO) 75.3 % (42-75); PLATELET COUNT 466 X10'3 (140-440); WHITE BLOOD COUNT 9.8 X10'3 (4.5-11.0)
[2017-08-03 06:51] LABS: INR 1.4 INR; PARTIAL THROMBOPLASTIN TIME 40 SECONDS (22-32); PROTHROMBIN TIME 14.7 SECONDS (9.0-12.0)
[2017-08-03 06:59] LABS: ALANINE AMINOTRANSFERASE 30 U/L (12-78); ALBUMIN 2.1 G/DL (3.4-5.0); ALBUMIN/GLOBULIN RATIO 0.5 (1.1-1.5); ALKALINE PHOSPHATASE 55 IU/L (46-116); ANION GAP 5 (8-16); ASPARTATE AMINO TRANSFERASE 18 U/L (10-37); BILIRUBIN,TOTAL 0.6 MG/DL (0.1-1.0); BLOOD UREA NITROGEN 23 MG/DL (7-18); CALCIUM 8.6 MG/DL (8.5-10.1); CHLORIDE 105 MMOL/L (99-107); GLUCOSE 207 MG/DL (70-104); MAGNESIUM 2.1 MG/DL (1.5-2.4); POTASSIUM 3.4 MMOL/L (3.5-5.1); SODIUM 146 MMOL/L (135-145); TOTAL CARBON DIOXIDE 36.1 MMOL/L (24-32); TOTAL PROTEIN 6.4 G/DL (6.4-8.2); eGFR 75 ML/MIN
[2017-08-03 07:15] LABS: ANISOCYTOSIS 3+; ELLIPTOCYTES 2+; HYPOCHROMASIA 1+; LARGE PLATELETS FEW; MICROCYTOSIS 1+; PLATELET ESTIMATE NORMAL; POLYCHROMASIA 1+; TARGET CELLS 1+
[2017-08-03] MEDS: gabapentin 300mg capsule PO SCH ×2 (08:23→20:44)
[2017-08-03] MEDS: mineral oil/petrolatum, white cream 113gm jar TP SCH ×2 (08:23→20:26)
[2017-08-03] MEDS: metoprolol tartrate 25mg tablet PO SCH ×2 (08:23→20:44)
[2017-08-03] MEDS: lactobacillus rhamnosus 10,000 MMU CELLS/CAPSULE PO SCH ×2 (08:23→18:58)
[2017-08-03] MEDS: aspirin 81mg tab.chew PO SCH (08:23)
[2017-08-03] MEDS: amiodarone 200mg tablet PO SCH (08:23)
[2017-08-03] MEDS: pantoprazole 40 MG vial IV SCH (08:31)
[2017-08-03] MEDS: levoFLOXACIN-Levaquin 500mg/D5 100 ML IV SCH (08:31)
[2017-08-03] MEDS: cefepime 1GM/NS ADD-VANTAGE 100 ML IV SCH ×4 (08:31→23:41)
[2017-08-03] MEDS: diltiazem 30mg tablet PO SCH (08:36)
[2017-08-03] MEDS: furosemide 40mg/4ml inj IV SCH ×4 (08:36→23:42)
[2017-08-03] MEDS: atorvastatin 20mg tablet PO SCH (08:39)
[2017-08-03] MEDS: nystatin 15 GM powder TP SCH ×3 (08:40→20:26)
[2017-08-03] MEDS: midazolam 100mg in NS 100ml 100 ML IV PRN ×2 (10:00→22:22)
[2017-08-03] MEDS: insulin regular, human vial - multi-dose SQ SCH ×3 (10:05→20:42)
[2017-08-03] MEDS: mineral oil/petrolatum ophthal oint EACHEYE SCH ×2 (15:38→20:26)
[2017-08-03] MEDS: insulin glargine (Lantus) pen - multi-dose SQ SCH (20:43)
[2017-08-03] MEDS: rivaroxaban 20mg tablet PO SCH (20:44)
[2017-08-03] MEDS: FENTANYL-0.9 % NACL/PF 100 ML IV PRN (23:41)
[2017-08-04] VITALS (24 sets, daily range): BP systolic 100–180; BP diastolic 51–90
[2017-08-04] MEDS: mineral oil/petrolatum ophthal oint EACHEYE SCH ×4 (02:27→20:00)
[2017-08-04] MEDS: insulin regular, human vial - multi-dose SQ SCH ×2 (02:30→08:47)
[2017-08-04 03:36] LABS: ABG BASE EXCESS 6.4 mmol/L (-2.0-3.0); ABG HCO3 32.4 mmol/L (22.0-26.0); ABG OXYGEN SATURATION 95.3 % (95-98); ABG PCO2 (T) 53.2 mmHg (35.0-48.0); ABG PO2 (T) 79.3 mmHg (83-108); ALLEN'S TEST Positive; FCOHb 0.1 % (0.5-1.5); FMetHb 0.1 % (0.3-1.12); FO2Hb 95.1 % (94-100); MINUTE VOLUME 7 L/min; PATIENT TEMPERATURE 36.4; PEEP 5 cm H2O; RESPIRATORY RATE 10 b/min; TIDAL VOLUME 450 mL; TOTAL HEMOGLOBIN 9.2 G/dl (14.0-18.0)
[2017-08-04 05:44] LABS: BASOPHILS % (AUTO) 0.2 % (0-1); EOSINOPHILS # (AUTO) 0.3 X10'3 (0-0.9); EOSINOPHILS % (AUTO) 4.1 % (0-6); HEMATOCRIT 28.8 % (42.0-52.0); HEMOGLOBIN 8.7 g/dl (14.0-17.9); LYMPHOCYTES # (AUTO) 0.9 X10'3 (1.1-4.8); LYMPHOCYTES % (AUTO) 10.8 % (21-51); MEAN CORPUSCULAR HEMOGLOBIN 21.6 PG (27.0-31.0); MEAN CORPUSCULAR HGB CONC 30.2 % (33.0-36.5); MEAN CORPUSCULAR VOLUME 71.4 FL (78-98); MONOCYTES # (AUTO) 0.9 X10'3 (0-0.9); NEUTROPHILS % (AUTO) 73.9 % (42-75); PLATELET COUNT 446 X10'3 (140-440); RED BLOOD COUNT 4.04 X10'6 (4.70-6.10); RED CELL DISTRIBUTION WIDTH 21.9 % (11.5-14.5); WHITE BLOOD COUNT 8.1 X10'3 (4.5-11.0)
[2017-08-04 06:11] LABS: INR 1.3 INR; PARTIAL THROMBOPLASTIN TIME 35 SECONDS (22-32); PROTHROMBIN TIME 13.6 SECONDS (9.0-12.0)
[2017-08-04 06:37] LABS: ALANINE AMINOTRANSFERASE 36 U/L (12-78); ALBUMIN 2.1 G/DL (3.4-5.0); ALBUMIN/GLOBULIN RATIO 0.5 (1.1-1.5); ALKALINE PHOSPHATASE 61 IU/L (46-116); ANION GAP 7 (8-16); ASPARTATE AMINO TRANSFERASE 27 U/L (10-37); BILIRUBIN,TOTAL 0.4 MG/DL (0.1-1.0); BLOOD UREA NITROGEN 24 MG/DL (7-18); BUN/CREATININE RATIO 26.7 (5.4-32.0); CALCIUM 8.3 MG/DL (8.5-10.1); CHLORIDE 106 MMOL/L (99-107); GLUCOSE 165 MG/DL (70-104); MAGNESIUM 1.9 MG/DL (1.5-2.4); PHOSPHORUS 3.3 MG/DL (2.3-4.5); POTASSIUM 3.2 MMOL/L (3.5-5.1); SODIUM 147 MMOL/L (135-145); TOTAL CARBON DIOXIDE 34.4 MMOL/L (24-32); TOTAL PROTEIN 6.3 G/DL (6.4-8.2); eGFR 85 ML/MIN
[2017-08-04] MEDS: lactobacillus rhamnosus 10,000 MMU CELLS/CAPSULE PO SCH ×2 (08:31→15:49)
[2017-08-04] MEDS: furosemide 40mg/4ml inj IV SCH ×2 (08:32→16:45)
[2017-08-04] MEDS: pantoprazole 40 MG vial IV SCH (08:35)
[2017-08-04] MEDS: cefepime 1GM/NS ADD-VANTAGE 100 ML IV SCH ×2 (08:35→16:45)
[2017-08-04] MEDS: atorvastatin 20mg tablet PO SCH (08:38)
[2017-08-04] MEDS: gabapentin 300mg capsule PO SCH ×2 (08:38→20:00)
[2017-08-04] MEDS: aspirin 81mg tab.chew PO SCH (08:39)
[2017-08-04] MEDS: metoprolol tartrate 25mg tablet PO SCH ×2 (08:40→20:00)
[2017-08-04] MEDS: mineral oil/petrolatum, white cream 113gm jar TP SCH ×2 (08:51→20:31)
[2017-08-04] MEDS: nystatin 15 GM powder TP SCH ×3 (08:51→21:01)
[2017-08-04] MEDS: potassium Cl oral solution 20 MEQ/15 ML PO PRN ×2 (08:53→11:51)
[2017-08-04] MEDS: levoFLOXACIN-Levaquin 500mg/D5 100 ML IV SCH (09:16)
[2017-08-04] MEDS ORDERED: ipratropium/albuterol 3ml nebule NEB PRN (14:50)
[2017-08-04] MEDS ORDERED: racepinephrine 11.25mg/0.5ml nebule NEB PRN (14:50)
[2017-08-04] MEDS: ipratropium/albuterol 3ml nebule NEB SCH ×2 (15:44→20:28)
[2017-08-04] MEDS: potassium Cl 40MEQ/NS 500ml 500 ML IV PRN (16:45)
[2017-08-04] MEDS ORDERED: diltiazem 5mg/ml 5ml inj. IV ONE (19:10)
[2017-08-04] MEDS: insulin glargine (Lantus) pen - multi-dose SQ SCH (20:30)
[2017-08-04] MEDS: rivaroxaban 20mg tablet PO SCH (21:00)
[2017-08-04] MEDS ORDERED: insulin Lispro (HumaLOG) vial - multi-dose SQ SCH (21:00)
[2017-08-05] VITALS (24 sets, daily range): BP systolic 83–168; BP diastolic 54–90
[2017-08-05] MEDS: cefepime 1GM/NS ADD-VANTAGE 100 ML IV SCH ×4 (00:01→23:19)
[2017-08-05] MEDS: furosemide 40mg/4ml inj IV SCH ×2 (00:01→08:46)
[2017-08-05] MEDS: mineral oil/petrolatum ophthal oint EACHEYE SCH ×2 (02:00→08:00)
[2017-08-05] MEDS: insulin Lispro (HumaLOG) vial - multi-dose SQ SCH ×4 (02:38→19:22)
[2017-08-05] MEDS: ipratropium/albuterol 3ml nebule NEB SCH ×4 (03:21→20:12)
[2017-08-05 06:13] LABS: BASOPHILS % (AUTO) 0 % (0-1); EOSINOPHILS # (AUTO) 0.3 X10'3 (0-0.9); HEMATOCRIT 33.4 % (42.0-52.0); LYMPHOCYTES # (AUTO) 1.6 X10'3 (1.1-4.8); MEAN CORPUSCULAR HEMOGLOBIN 21.5 PG (27.0-31.0); MEAN CORPUSCULAR HGB CONC 29.8 % (33.0-36.5); MEAN PLATELET VOLUME 8.8 FL (7.4-10.4); MONOCYTES # (AUTO) 1.5 X10'3 (0-0.9); NEUTROPHILS # (AUTO) 7.9 X10'3 (1.8-7.7); PLATELET COUNT 647 X10'3 (140-440); RED BLOOD COUNT 4.64 X10'6 (4.70-6.10); RED CELL DISTRIBUTION WIDTH 21.4 % (11.5-14.5); WHITE BLOOD COUNT 11.3 X10'3 (4.5-11.0)
[2017-08-05 06:30] LABS: INR 1.2 INR; PARTIAL THROMBOPLASTIN TIME 30 SECONDS (22-32); PROTHROMBIN TIME 12.7 SECONDS (9.0-12.0)
[2017-08-05 06:49] LABS: ALBUMIN 2.5 G/DL (3.4-5.0); ANION GAP 7 (8-16); BILIRUBIN,TOTAL 0.7 MG/DL (0.1-1.0); BLOOD UREA NITROGEN 22 MG/DL (7-18); CALCIUM 9.1 MG/DL (8.5-10.1); CHLORIDE 106 MMOL/L (99-107); GLUCOSE 162 MG/DL (70-104); MAGNESIUM 2.1 MG/DL (1.5-2.4); POTASSIUM 3.6 MMOL/L (3.5-5.1); SODIUM 150 MMOL/L (135-145); TOTAL CARBON DIOXIDE 37.2 MMOL/L (24-32); TOTAL PROTEIN 7.4 G/DL (6.4-8.2); eGFR 75 ML/MIN
[2017-08-05 06:50] LABS: ALANINE AMINOTRANSFERASE 41 U/L (12-78); ALBUMIN/GLOBULIN RATIO 0.5 (1.1-1.5); ALKALINE PHOSPHATASE 74 IU/L (46-116); ASPARTATE AMINO TRANSFERASE 25 U/L (10-37); PREALBUMIN 11.8 MG/DL (19-36)
[2017-08-05 08:00] LABS: LARGE PLATELETS FEW; PLATELET ESTIMATE INCREASED
[2017-08-05 08:01] LABS: POLYCHROMASIA FEW
[2017-08-05 08:02] LABS: ANISOCYTOSIS 2+; ELLIPTOCYTES 1+
[2017-08-05 08:03] LABS: SCHISTOCYTES FEW; STOMATOCYTES 1+
[2017-08-05] MEDS: lactobacillus rhamnosus 10,000 MMU CELLS/CAPSULE PO SCH ×2 (08:46→17:59)
[2017-08-05] MEDS: levoFLOXACIN-Levaquin 500mg/D5 100 ML IV SCH (08:48)
[2017-08-05] MEDS: pantoprazole 40 MG vial IV SCH (08:53)
[2017-08-05] MEDS: atorvastatin 20mg tablet PO SCH (08:56)
[2017-08-05] MEDS: metoprolol tartrate 25mg tablet PO SCH ×2 (08:56→19:16)
[2017-08-05] MEDS: aspirin 81mg tab.chew PO SCH (08:57)
[2017-08-05] MEDS: nystatin 15 GM powder TP SCH ×3 (08:57→21:19)
[2017-08-05] MEDS: gabapentin 300mg capsule PO SCH ×2 (08:57→19:16)
[2017-08-05] MEDS: mineral oil/petrolatum, white cream 113gm jar TP SCH (08:57)
[2017-08-05] MEDS: amiodarone 200mg tablet PO SCH ×2 (13:03→19:16)
[2017-08-05] MEDS: lactulose 20gm/30ml cup PO SCH ×2 (14:00→19:23)
[2017-08-05] MEDS: rivaroxaban 20mg tablet PO SCH (21:15)
[2017-08-05] MEDS: insulin glargine (Lantus) pen - multi-dose SQ SCH (21:18)
[2017-08-06] VITALS (15 sets, daily range): BP systolic 90–157; BP diastolic 53–101
[2017-08-06] MEDS: lactulose 20gm/30ml cup PO SCH ×2 (02:00→08:00)
[2017-08-06] MEDS: ipratropium/albuterol 3ml nebule NEB SCH ×3 (02:25→14:14)
[2017-08-06 06:07] LABS: BASOPHILS % (AUTO) 0.3 % (0-1); EOSINOPHILS # (AUTO) 0.4 X10'3 (0-0.9); EOSINOPHILS % (AUTO) 3.3 % (0-6); HEMATOCRIT 31.6 % (42.0-52.0); HEMOGLOBIN 9.6 g/dl (14.0-17.9); LYMPHOCYTES # (AUTO) 1.7 X10'3 (1.1-4.8); LYMPHOCYTES % (AUTO) 12.9 % (21-51); MEAN CORPUSCULAR HEMOGLOBIN 21.7 PG (27.0-31.0); MEAN CORPUSCULAR HGB CONC 30.3 % (33.0-36.5); MEAN CORPUSCULAR VOLUME 71.5 FL (78-98); MEAN PLATELET VOLUME 8.3 FL (7.4-10.4); MONOCYTES # (AUTO) 1.5 X10'3 (0-0.9); MONOCYTES % (AUTO) 11.2 % (2-12); NEUTROPHILS # (AUTO) 9.6 X10'3 (1.8-7.7); NEUTROPHILS % (AUTO) 72.3 % (42-75); PLATELET COUNT 653 X10'3 (140-440); RED BLOOD COUNT 4.42 X10'6 (4.70-6.10); WHITE BLOOD COUNT 13.3 X10'3 (4.5-11.0)
[2017-08-06 06:36] LABS: INR 1.5 INR; PARTIAL THROMBOPLASTIN TIME 35 SECONDS (22-32); PROTHROMBIN TIME 15.4 SECONDS (9.0-12.0)
[2017-08-06 06:40] LABS: ALANINE AMINOTRANSFERASE 47 U/L (12-78); ALBUMIN 2.3 G/DL (3.4-5.0); ALBUMIN/GLOBULIN RATIO 0.5 (1.1-1.5); ALKALINE PHOSPHATASE 70 IU/L (46-116); ANION GAP 4 (8-16); ASPARTATE AMINO TRANSFERASE 30 U/L (10-37); BILIRUBIN,TOTAL 0.7 MG/DL (0.1-1.0); BLOOD UREA NITROGEN 21 MG/DL (7-18); BUN/CREATININE RATIO 23.3 (5.4-32.0); CALCIUM 8.8 MG/DL (8.5-10.1); CHLORIDE 103 MMOL/L (99-107); GLUCOSE 151 MG/DL (70-104); MAGNESIUM 2.1 MG/DL (1.5-2.4); POTASSIUM 3.3 MMOL/L (3.5-5.1); SODIUM 144 MMOL/L (135-145); TOTAL CARBON DIOXIDE 37.3 MMOL/L (24-32); TOTAL PROTEIN 6.7 G/DL (6.4-8.2); eGFR 85 ML/MIN
[2017-08-06] MEDS ORDERED: pantoprazole 40mg Tablet.DR PO SCH (07:30)
[2017-08-06] MEDS: lactobacillus rhamnosus 10,000 MMU CELLS/CAPSULE PO SCH (07:38)
[2017-08-06] MEDS: metoprolol tartrate 25mg tablet PO SCH (07:38)
[2017-08-06] MEDS: gabapentin 300mg capsule PO SCH (07:38)
[2017-08-06] MEDS: cefepime 1GM/NS ADD-VANTAGE 100 ML IV SCH (07:38)
[2017-08-06] MEDS: amiodarone 200mg tablet PO SCH (07:38)
[2017-08-06] MEDS: atorvastatin 20mg tablet PO SCH (07:39)
[2017-08-06] MEDS: potassium Cl oral solution 20 MEQ/15 ML PO PRN ×2 (07:41→14:25)
[2017-08-06 07:45] LABS: ANISOCYTOSIS 3+; ELLIPTOCYTES 1+; HYPOCHROMASIA 1+; LARGE PLATELETS FEW; PLATELET ESTIMATE INCREASED; POLYCHROMASIA 1+
[2017-08-06] MEDS ORDERED: furosemide 40mg tablet PO SCH (08:00)
[2017-08-06] MEDS: nystatin 15 GM powder TP SCH ×2 (08:29→13:54)
[2017-08-06] MEDS: aspirin 81mg tab.chew PO SCH (08:29)
[2017-08-06] MEDS: insulin Lispro (HumaLOG) vial - multi-dose SQ SCH ×2 (08:58→14:00)
[2017-08-06] MEDS ORDERED: lactulose 20gm/30ml cup PO PRN (09:30)
[2017-08-06] MEDS ORDERED: levoFLOXACIN 500mg tablet PO SCH (11:00)
[2017-08-06] MEDS ORDERED: diltiazem CD 120mg capsule (once-daily) PO ONE (11:50)
[2017-08-07] MEDS ORDERED: diltiazem CD 120mg capsule (once-daily) PO SCH (08:00)
== END 2017-08-06 16:00 | DRG 207 ==
LOC: ER 02:24 → ED HOLD 03:57 → ICU 2S 04:40
PROVIDERS: ADMIT Internal Medicine Critical Care Medicine; ATTEND Internal Medicine Critical Care Medicine
PROC: 5A1955Z Respiratory Ventilation, Greater than 96 Consecutive Hours (ICD-10-PCS; principal; 2017-07-30)
PROC: 0BH17EZ Insertion of Endotracheal Airway into Trachea, Via Natural or Artificial Opening (ICD-10-PCS; 2017-07-30)
PROC: 02HV33Z Insertion of Infusion Device into Superior Vena Cava, Percutaneous Approach (ICD-10-PCS; 2017-08-01)
DX: J96.01 Acute respiratory failure with hypoxia (principal); I50.23 Acute on chronic systolic (congestive) heart failure; I48.2 Chronic atrial fibrillation; L03.115 Cellulitis of right lower limb; J44.9 Chronic obstructive pulmonary disease, unspecified; L03.116 Cellulitis of left lower limb; E66.01 Morbid (severe) obesity due to excess calories; G47.30 Sleep apnea, unspecified; I11.0 Hypertensive heart disease with heart failure; I25.10 Atherosclerotic heart disease of native coronary artery without angina pectoris; N40.0 Benign prostatic hyperplasia without lower urinary tract symptoms; R32 Unspecified urinary incontinence; E11.9 Type 2 diabetes mellitus without complications; W01.0XXA Fall on same level from slipping, tripping and stumbling without subsequent striking against object, initial encounter; Z78.1 Physical restraint status; Z95.1 Presence of aortocoronary bypass graft; Z79.01 Long term (current) use of anticoagulants; Z79.82 Long term (current) use of aspirin; Z79.84 Long term (current) use of oral hypoglycemic drugs; Z79.899 Other long term (current) drug therapy; Z85.46 Personal history of malignant neoplasm of prostate; Z68.38 Body mass index [BMI] 38.0-38.9, adult; Y92.89 Other specified places as the place of occurrence of the external cause
CPT/HCPCS: 36415; 36569; 36600; 70450; 71045; 76937; 80053; 82803; 82948; 83605; 83735; 83880; 84100; 84132; 84134; 84145; 84439; 84443; 84484; 85018; 85025; 85379; 85610; 85730; 87040; 87070; 87502; 87503; 92616; 93005; 93971; 94002; 94003; 94640; 94760; 96374; 96375; 97110; 97116; 97162; 97530; 99291; A6212; A6213; A6449; C1758; C9113; J0282; J0692; J1160; J1644; J1815; J1940; J1956; J2250; J2704; J3475; J3480; J3490; J7030; J7060

== ENCOUNTER 2017-08-26 08:43 | Inpatient (IN) | payer MEDICARE, MEDICAID ==
[2017-08-26] VITALS (13 sets, daily range): BP systolic 118–148; BP diastolic 62–78
[~2017-08-26] VITALS: Ht 180.3 cm; Wt 137.2 kg
[~2017-08-26 08:43] MED LIST changes: -FURO40TA4 PO; -GLIM1TAB46 PO; -LOSA50TA3 PO; -POTA10TA19 PO; -PRED10TA23 PO; +VALS160T2 PO
[2017-08-26] MEDS ORDERED: normal saline 1000ML IV soln IV ONE (09:05)
[2017-08-26] MEDS ORDERED: pantoprazole IV 80 MG in normal saline 100ml IV soln 100 ML IV ONE ×4 (09:05)
[2017-08-26] MEDS ORDERED: normal saline 1000ml 1,000 ML IV SCH (09:13)
[2017-08-26] MEDS ORDERED: simethicone 40mg/0.6ml oral drops 30ml MC ONE ×2 (09:15→13:00)
[2017-08-26] MEDS ORDERED: MIDAZolam 5mg/5ml vial IV PRN (09:15)
[2017-08-26] MEDS ORDERED: fentaNYL/PF 50MCG/1 ML 2ML syringe IV PRN (09:15)
[2017-08-26] MEDS ORDERED: LIDOcaine Viscous 15ml cup PO ONE (09:15)
[2017-08-26] MEDS ORDERED: pantoprazole 40MG/NS 100ML BAG 100 ML IV SCH (09:17)
[2017-08-26 09:21] LABS: BASOPHILS % (AUTO) 0.2 % (0-1); EOSINOPHILS # (AUTO) 0.3 X10'3 (0-0.9); EOSINOPHILS % (AUTO) 2.9 % (0-6); HEMATOCRIT 22.8 % (42.0-52.0); LYMPHOCYTES # (AUTO) 1.8 X10'3 (1.1-4.8); LYMPHOCYTES % (AUTO) 18.6 % (21-51); MEAN CORPUSCULAR HEMOGLOBIN 21.1 PG (27.0-31.0); MEAN CORPUSCULAR HGB CONC 30.4 % (33.0-36.5); MEAN CORPUSCULAR VOLUME 69.2 FL (78-98); MEAN PLATELET VOLUME 8.4 FL (7.4-10.4); MONOCYTES # (AUTO) 0.9 X10'3 (0-0.9); MONOCYTES % (AUTO) 9.1 % (2-12); NEUTROPHILS # (AUTO) 6.6 X10'3 (1.8-7.7); NEUTROPHILS % (AUTO) 69.2 % (42-75); PLATELET COUNT 325 X10'3 (140-440); RED BLOOD COUNT 3.29 X10'6 (4.70-6.10); RED CELL DISTRIBUTION WIDTH 21.6 % (11.5-14.5); WHITE BLOOD COUNT 9.5 X10'3 (4.5-11.0)
[2017-08-26] MEDS ORDERED: pantoprazole 40 MG vial IV ONE ×4 (09:23→20:00)
[2017-08-26 09:24] LABS: HEMOGLOBIN 6.9 g/dl (14.0-17.9)
[2017-08-26 09:30] LABS: INR 1.2 INR
[2017-08-26 09:34] LABS: ALANINE AMINOTRANSFERASE 28 U/L (12-78); ALBUMIN 2.8 G/DL (3.4-5.0); ALBUMIN/GLOBULIN RATIO 0.8 (1.1-1.5); ALKALINE PHOSPHATASE 53 IU/L (46-116); ANION GAP 8 (8-16); ASPARTATE AMINO TRANSFERASE 15 U/L (10-37); BILIRUBIN,TOTAL 0.3 MG/DL (0.1-1.0); BLOOD UREA NITROGEN 27 MG/DL (7-18); BUN/CREATININE RATIO 16.1 (5.4-32.0); CALCIUM 8.8 MG/DL (8.5-10.1); CHLORIDE 104 MMOL/L (99-107); CREATININE 1.68 MG/DL (0.60-1.10); GLUCOSE 120 MG/DL (70-104); POTASSIUM 4.3 MMOL/L (3.5-5.1); SODIUM 144 MMOL/L (135-145); TOTAL CARBON DIOXIDE 31.6 MMOL/L (24-32); TOTAL PROTEIN 6.4 G/DL (6.4-8.2); eGFR 41 ML/MIN
[2017-08-26 09:45] LABS: ANISOCYTOSIS 3+; HYPOCHROMASIA 1+; MICROCYTOSIS 2+; PLATELET ESTIMATE NORMAL; POLYCHROMASIA 1+
[2017-08-26 09:47] LABS: ELLIPTOCYTES 1+; SCHISTOCYTES FEW; TEAR DROP CELLS FEW
[2017-08-26 09:48] LABS: STOMATOCYTES FEW
[2017-08-26] MEDS ORDERED: fentaNYL/PF 50MCG/1 ML 2ML syringe ONE (10:02)
[2017-08-26] MEDS ORDERED: midazolam 2 mg/2 ml injection ONE (10:03)
[2017-08-26] MEDS ORDERED: LIDOcaine Viscous 15ml cup ONE (10:04)
[2017-08-26] MEDS ORDERED: furosemide 40mg/4ml inj IV ONE (11:35)
[2017-08-26] MEDS ORDERED: acetaminophen 325mg tablet PO PRN (14:15)
[2017-08-26] MEDS ORDERED: magnesium 2GM in 50ml NS 50 ML IV PRN (14:15)
[2017-08-26] MEDS ORDERED: bisacodyl 10mg suppository rectal RC PRN (14:15)
[2017-08-26] MEDS ORDERED: magnesium 4gm in 100ml NS 100 ML IV PRN (14:15)
[2017-08-26] MEDS ORDERED: potassium Cl 20 mEq SR tablet PO PRN ×2 (14:15)
[2017-08-26] MEDS ORDERED: magnesium Cl slow-release 64mg tablet PO PRN (14:15)
[2017-08-26] MEDS ORDERED: mag hydrox/Alum hydrox/simeth 30ml oral suspension PO PRN (14:15)
[2017-08-26] MEDS ORDERED: magnesium hydroxide 30ml (MOM) UD suspension PO PRN (14:15)
[2017-08-26] MEDS ORDERED: potassium Cl 40MEQ/NS 500ml 500 ML IV PRN ×2 (14:15)
[2017-08-26] MEDS ORDERED: ondansetron/PF 4mg/2ml inj IV PRN (14:15)
[2017-08-26 14:28] LABS: CLARITY,URINE CLEAR (Clear); COLOR,URINE STRAW (Yellow); GLUCOSE, URINE NEGATIVE (Neg); KETONES,URINE NEGATIVE (Neg); LEUKOCYTE ESTERASE ,URINE NEGATIVE (Neg); NITRITES, URINE NEGATIVE (Neg); OCCULT BLOOD,URINE NEGATIVE (Neg); PH,URINE 5.5 (4.8-8.0); PROTEIN,URINE NEGATIVE (Neg); UROBILINOGEN,URINE 0.2 E.U/dL (0.2-1.0)
[2017-08-26] MEDS: K and/or MAG REPLACEMENT MC SCH (14:30)
[2017-08-26 14:35] LABS: UA COLLECTION TYPE CLN CATCH MIDSTREAM
[2017-08-26] MEDS ORDERED: ipratropium/albuterol 3ml nebule IH PRN (15:00)
[2017-08-26] MEDS ORDERED: MESSAGE TO PHARMACY PO ONE (15:35)
[2017-08-26] MEDS ORDERED: dextrose 50%-water 50ml dispensing syringe IV PRN ×2 (15:35)
[2017-08-26] MEDS ORDERED: dextrose ORAL solution 15 GM/59 ML bottle PO PRN ×2 (15:35)
[2017-08-26] MEDS ORDERED: insulin Lispro (HumaLOG) vial - multi-dose SQ SCH (15:35)
[2017-08-26] MEDS ORDERED: glucagon, human recombinant 1mg kit SUBCUT PRN (15:35)
[2017-08-26] MEDS: docusate sod 100mg capsule PO SCH (20:00)
[2017-08-26] MEDS ORDERED: pantoprazole 40 MG vial IV SCH (20:00)
[2017-08-26] MEDS: metoprolol tartrate 25mg tablet PO SCH (20:50)
[2017-08-26] MEDS: gabapentin 300mg capsule PO SCH (20:50)
[2017-08-26] MEDS: pantoprazole 40 MG vial IV SCH (20:51)
[2017-08-26] MEDS: insulin glargine (Lantus) pen - multi-dose SQ SCH (21:00)
[2017-08-26 21:57] LABS: HEMATOCRIT 27.4 % (42.0-52.0); HEMOGLOBIN 8.5 g/dl (14.0-17.9); MEAN CORPUSCULAR HEMOGLOBIN 22.3 PG (27.0-31.0); MEAN CORPUSCULAR HGB CONC 31.2 % (33.0-36.5); MEAN CORPUSCULAR VOLUME 71.7 FL (78-98); MEAN PLATELET VOLUME 8.5 FL (7.4-10.4); PLATELET COUNT 308 X10'3 (140-440); RED BLOOD COUNT 3.82 X10'6 (4.70-6.10); WHITE BLOOD COUNT 10.3 X10'3 (4.5-11.0)
[2017-08-27 02:37] VITALS: BP 137/68
[2017-08-27 05:20] LABS: BASOPHILS % (AUTO) 0.1 % (0-1); EOSINOPHILS # (AUTO) 0.4 X10'3 (0-0.9); EOSINOPHILS % (AUTO) 3.7 % (0-6); HEMATOCRIT 27.8 % (42.0-52.0); HEMOGLOBIN 8.6 g/dl (14.0-17.9); LYMPHOCYTES # (AUTO) 1.6 X10'3 (1.1-4.8); LYMPHOCYTES % (AUTO) 16.7 % (21-51); MEAN CORPUSCULAR HEMOGLOBIN 22.2 PG (27.0-31.0); MEAN CORPUSCULAR HGB CONC 30.7 % (33.0-36.5); MEAN CORPUSCULAR VOLUME 72.3 FL (78-98); MEAN PLATELET VOLUME 8.6 FL (7.4-10.4); MONOCYTES % (AUTO) 10.3 % (2-12); NEUTROPHILS # (AUTO) 6.8 X10'3 (1.8-7.7); NEUTROPHILS % (AUTO) 69.2 % (42-75); PLATELET COUNT 299 X10'3 (140-440); RED BLOOD COUNT 3.85 X10'6 (4.70-6.10); RED CELL DISTRIBUTION WIDTH 22.2 % (11.5-14.5); WHITE BLOOD COUNT 9.8 X10'3 (4.5-11.0)
[2017-08-27 05:21] LABS: ALBUMIN 2.9 G/DL (3.4-5.0); ANION GAP 7 (8-16); BLOOD UREA NITROGEN 27 MG/DL (7-18); BUN/CREATININE RATIO 23.9 (5.4-32.0); CALCIUM 8.6 MG/DL (8.5-10.1); CHLORIDE 104 MMOL/L (99-107); CREATININE 1.13 MG/DL (0.60-1.10); GLUCOSE 104 MG/DL (70-104); MAGNESIUM 1.9 MG/DL (1.5-2.4); SODIUM 144 MMOL/L (135-145); TOTAL CARBON DIOXIDE 33.4 MMOL/L (24-32); eGFR 65 ML/MIN
[2017-08-27 07:00] VITALS: BP 135/60
[2017-08-27 08:00] VITALS: BP_SYST 127; BP_SYST 149; BP_SYST 161; BP_DIAS 54; BP_DIAS 74; BP_DIAS 79
[2017-08-27] MEDS: docusate sod 100mg capsule PO SCH ×2 (08:00→20:00)
[2017-08-27] MEDS: K and/or MAG REPLACEMENT MC SCH (08:00)
[2017-08-27] MEDS: pantoprazole 40 MG vial IV SCH (09:09)
[2017-08-27] MEDS: diltiazem CD 120mg capsule (once-daily) PO SCH (09:09)
[2017-08-27] MEDS: metoprolol tartrate 25mg tablet PO SCH ×2 (09:11→21:26)
[2017-08-27] MEDS: atorvastatin 20mg tablet PO SCH (09:11)
[2017-08-27] MEDS: gabapentin 300mg capsule PO SCH ×2 (09:12→21:27)
[2017-08-27 11:00] VITALS: BP 125/77
[2017-08-27 11:30] LABS: HEMATOCRIT 27.4 % (42.0-52.0); HEMOGLOBIN 8.5 g/dl (14.0-17.9); MEAN CORPUSCULAR HEMOGLOBIN 22.4 PG (27.0-31.0); MEAN CORPUSCULAR HGB CONC 30.9 % (33.0-36.5); MEAN CORPUSCULAR VOLUME 72.4 FL (78-98); MEAN PLATELET VOLUME 8.8 FL (7.4-10.4); PLATELET COUNT 289 X10'3 (140-440); RED BLOOD COUNT 3.78 X10'6 (4.70-6.10); RED CELL DISTRIBUTION WIDTH 23.1 % (11.5-14.5); WHITE BLOOD COUNT 7.9 X10'3 (4.5-11.0)
[2017-08-27 17:08] LABS: HEMATOCRIT 29.1 % (42.0-52.0); HEMOGLOBIN 8.8 g/dl (14.0-17.9); MEAN CORPUSCULAR HGB CONC 30.1 % (33.0-36.5); MEAN CORPUSCULAR VOLUME 73.2 FL (78-98); MEAN PLATELET VOLUME 8.7 FL (7.4-10.4); PLATELET COUNT 310 X10'3 (140-440); RED BLOOD COUNT 3.98 X10'6 (4.70-6.10); RED CELL DISTRIBUTION WIDTH 23.1 % (11.5-14.5)
[2017-08-27 20:00] VITALS: BP_SYST 117; BP_SYST 134; BP_SYST 142; BP_DIAS 59; BP_DIAS 63; BP_DIAS 66
[2017-08-27] MEDS: insulin glargine (Lantus) pen - multi-dose SQ SCH (21:00)
[2017-08-27 23:16] LABS: HEMATOCRIT 26.8 % (42.0-52.0); HEMOGLOBIN 8.2 g/dl (14.0-17.9); MEAN CORPUSCULAR HEMOGLOBIN 22.2 PG (27.0-31.0); MEAN CORPUSCULAR HGB CONC 30.5 % (33.0-36.5); MEAN CORPUSCULAR VOLUME 72.9 FL (78-98); MEAN PLATELET VOLUME 8.4 FL (7.4-10.4); PLATELET COUNT 276 X10'3 (140-440); RED BLOOD COUNT 3.68 X10'6 (4.70-6.10); RED CELL DISTRIBUTION WIDTH 23.4 % (11.5-14.5); WHITE BLOOD COUNT 8.9 X10'3 (4.5-11.0)
[2017-08-28] VITALS: BP 136/68
[2017-08-28] MEDS ORDERED: pantoprazole 40mg Tablet.DR PO SCH (07:30)
[2017-08-28 08:00] VITALS: BP 158/77
[2017-08-28] MEDS: K and/or MAG REPLACEMENT MC SCH (08:00)
[2017-08-28] MEDS: diltiazem CD 120mg capsule (once-daily) PO SCH (08:07)
[2017-08-28] MEDS: gabapentin 300mg capsule PO SCH (08:08)
[2017-08-28] MEDS: atorvastatin 20mg tablet PO SCH (08:08)
[2017-08-28] MEDS: metoprolol tartrate 25mg tablet PO SCH (08:08)
[2017-08-28] MEDS: docusate sod 100mg capsule PO SCH (08:08)
[2017-08-28 08:47] VITALS: BP 158/77
[2017-08-28 08:51] VITALS: BP_SYST 142; BP_SYST 165; BP_DIAS 61; BP_DIAS 75
[2017-08-28 09:12] LABS: ALBUMIN 2.8 G/DL (3.4-5.0); ANION GAP 1 (8-16); BASOPHILS % (AUTO) 0.3 % (0-1); BLOOD UREA NITROGEN 14 MG/DL (7-18); BUN/CREATININE RATIO 15.1 (5.4-32.0); CALCIUM 9.1 MG/DL (8.5-10.1); CHLORIDE 106 MMOL/L (99-107); CREATININE 0.93 MG/DL (0.60-1.10); EOSINOPHILS # (AUTO) 0.1 X10'3 (0-0.9); EOSINOPHILS % (AUTO) 1.4 % (0-6); GLUCOSE 149 MG/DL (70-104); HEMATOCRIT 29.1 % (42.0-52.0); HEMOGLOBIN 8.8 g/dl (14.0-17.9); LYMPHOCYTES # (AUTO) 1.4 X10'3 (1.1-4.8); LYMPHOCYTES % (AUTO) 15.6 % (21-51); MEAN CORPUSCULAR HEMOGLOBIN 22.1 PG (27.0-31.0); MEAN CORPUSCULAR HGB CONC 30.2 % (33.0-36.5); MEAN CORPUSCULAR VOLUME 73.1 FL (78-98); MEAN PLATELET VOLUME 9.1 FL (7.4-10.4); MONOCYTES % (AUTO) 10.7 % (2-12); NEUTROPHILS # (AUTO) 6.7 X10'3 (1.8-7.7); PLATELET COUNT 304 X10'3 (140-440); RED BLOOD COUNT 3.97 X10'6 (4.70-6.10); RED CELL DISTRIBUTION WIDTH 21.8 % (11.5-14.5); SODIUM 145 MMOL/L (135-145); TOTAL CARBON DIOXIDE 37.9 MMOL/L (24-32); WHITE BLOOD COUNT 9.2 X10'3 (4.5-11.0); eGFR 82 ML/MIN
[2017-08-28 09:51] LABS: ANISOCYTOSIS 3+; PLATELET ESTIMATE NORMAL
[2017-08-28 09:52] LABS: ELLIPTOCYTES 2+; HYPOCHROMASIA 1+; POLYCHROMASIA FEW
[2017-08-28 09:53] LABS: BURR CELLS FEW
[2017-08-28 09:54] LABS: SCHISTOCYTES FEW
[2017-08-28 11:00] LABS: HEMATOCRIT 28.7 % (42.0-52.0); HEMOGLOBIN 8.7 g/dl (14.0-17.9); MEAN CORPUSCULAR HGB CONC 30.3 % (33.0-36.5); MEAN CORPUSCULAR VOLUME 72.8 FL (78-98); MEAN PLATELET VOLUME 8.6 FL (7.4-10.4); PLATELET COUNT 319 X10'3 (140-440); RED BLOOD COUNT 3.94 X10'6 (4.70-6.10); RED CELL DISTRIBUTION WIDTH 21.9 % (11.5-14.5); WHITE BLOOD COUNT 8.9 X10'3 (4.5-11.0)
[2017-08-28] MEDS ORDERED: PANT40TA4 PO (11:02)
== END 2017-08-28 16:15 | disposition home or self-care (01) | DRG 378 ==
LOC: ER 08:44 → ED HOLD 14:11 → CANBEDREQ 14:42 → EDBEDREQ 16:38 → SUR 3N 17:39
PROVIDERS: ADMIT Internal Medicine; ATTEND Internal Medicine
PROC: 30233N1 Transfusion of Nonautologous Red Blood Cells into Peripheral Vein, Percutaneous Approach (ICD-10-PCS; principal; 2017-08-26)
PROC: 0DJ08ZZ Inspection of Upper Intestinal Tract, Via Natural or Artificial Opening Endoscopic (ICD-10-PCS; 2017-08-26)
DX: K92.2 Gastrointestinal hemorrhage, unspecified (principal); N17.9 Acute kidney failure, unspecified; E11.22 Type 2 diabetes mellitus with diabetic chronic kidney disease; I13.0 Hypertensive heart and chronic kidney disease with heart failure and stage 1 through stage 4 chronic kidney disease, or unspecified chronic kidney disease; I48.91 Unspecified atrial fibrillation; I50.9 Heart failure, unspecified; D62 Acute posthemorrhagic anemia; Z68.41 Body mass index [BMI] 40.0-44.9, adult; Z99.81 Dependence on supplemental oxygen; N18.9 Chronic kidney disease, unspecified; E66.9 Obesity, unspecified; E78.00 Pure hypercholesterolemia, unspecified; E78.5 Hyperlipidemia, unspecified; G47.30 Sleep apnea, unspecified; J44.9 Chronic obstructive pulmonary disease, unspecified; I25.10 Atherosclerotic heart disease of native coronary artery without angina pectoris; K31.9 Disease of stomach and duodenum, unspecified; N40.0 Benign prostatic hyperplasia without lower urinary tract symptoms; Z95.1 Presence of aortocoronary bypass graft; Z95.2 Presence of prosthetic heart valve; Z79.01 Long term (current) use of anticoagulants; Z79.82 Long term (current) use of aspirin; Z79.899 Other long term (current) drug therapy; Z85.46 Personal history of malignant neoplasm of prostate; Z92.3 Personal history of irradiation
CPT/HCPCS: 36415; 71045; 80048; 80053; 81003; 82948; 83735; 85025; 85027; 85610; 86885; 86900; 86901; 86920; 87070; 93005; 94760; 96374; 96375; 99291; A4620; C9113; G0500; J1815; J1940; J2250; J3010; J7030; P9016

== ENCOUNTER 2017-09-07 10:06 | Inpatient (IN) | payer MEDICARE, MEDICAID ==
[~2017-09-07] VITALS: Ht 180.3 cm; Wt 138.7 kg
[~2017-09-07 10:06] MED LIST changes: -ASPI-107 PO; -METF500T PO; -OMEP40CA37 PO; +PANT40TA4 PO; -RIVA20TA PO
[2017-09-07 10:46] LABS: BASOPHILS % (AUTO) 0.3 % (0-1); EOSINOPHILS # (AUTO) 0.3 X10'3 (0-0.9); EOSINOPHILS % (AUTO) 2.2 % (0-6); HEMATOCRIT 27.7 % (42.0-52.0); HEMOGLOBIN 8.3 g/dl (14.0-17.9); LYMPHOCYTES # (AUTO) 0.9 X10'3 (1.1-4.8); LYMPHOCYTES % (AUTO) 7.4 % (21-51); MEAN CORPUSCULAR HEMOGLOBIN 21.7 PG (27.0-31.0); MEAN CORPUSCULAR HGB CONC 29.9 % (33.0-36.5); MEAN CORPUSCULAR VOLUME 72.8 FL (78-98); MEAN PLATELET VOLUME 7.9 FL (7.4-10.4); MONOCYTES # (AUTO) 1.1 X10'3 (0-0.9); MONOCYTES % (AUTO) 8.6 % (2-12); NEUTROPHILS # (AUTO) 10.1 X10'3 (1.8-7.7); NEUTROPHILS % (AUTO) 81.5 % (42-75); PLATELET COUNT 509 X10'3 (140-440); RED BLOOD COUNT 3.81 X10'6 (4.70-6.10); RED CELL DISTRIBUTION WIDTH 24.6 % (11.5-14.5); WHITE BLOOD COUNT 12.4 X10'3 (4.5-11.0)
[2017-09-07 10:57] LABS: INR 1.1 INR; PARTIAL THROMBOPLASTIN TIME 27 SECONDS (22-32); PROTHROMBIN TIME 11.4 SECONDS (9.0-12.0)
[2017-09-07 11:05] LABS: PLATELET ESTIMATE INCREASED
[2017-09-07 11:06] LABS: ANISOCYTOSIS 3+; ELLIPTOCYTES 2+; HYPOCHROMASIA 2+; MICROCYTOSIS 2+; POLYCHROMASIA 2+; STOMATOCYTES 1+; TEAR DROP CELLS FEW
[2017-09-07 11:07] LABS: SCHISTOCYTES FEW
[2017-09-07 11:09] LABS: ALANINE AMINOTRANSFERASE 25 U/L (12-78); ALBUMIN 2.6 G/DL (3.4-5.0); ALBUMIN/GLOBULIN RATIO 0.6 (1.1-1.5); ALKALINE PHOSPHATASE 81 IU/L (46-116); ANION GAP 4 (8-16); ASPARTATE AMINO TRANSFERASE 24 U/L (10-37); BILIRUBIN,TOTAL 0.5 MG/DL (0.1-1.0); BLOOD UREA NITROGEN 16 MG/DL (7-18); BUN/CREATININE RATIO 14.3 (5.4-32.0); CALCIUM 8.8 MG/DL (8.5-10.1); CHLORIDE 106 MMOL/L (99-107); CREATININE 1.12 MG/DL (0.60-1.10); GLUCOSE 94 MG/DL (70-104); POTASSIUM 4.1 MMOL/L (3.5-5.1); SODIUM 147 MMOL/L (135-145); TOTAL CARBON DIOXIDE 37.2 MMOL/L (24-32); eGFR 66 ML/MIN
[2017-09-07] MEDS ORDERED: normal saline 1000ML IV soln IVB ONE (11:35)
[2017-09-07] MEDS ORDERED: furosemide 10 MG/1 ML 10ml inj IV ONE (12:25)
[2017-09-07] MEDS ORDERED: methylPREDNISolone sod succ 125mg/2ml vial IV ONE (12:25)
[2017-09-07] MEDS ORDERED: potassium Cl 20 mEq SR tablet PO PRN ×2 (12:50)
[2017-09-07] MEDS ORDERED: potassium Cl 40MEQ/NS 500ml 500 ML IV PRN ×2 (12:50)
[2017-09-07] MEDS: K and/or MAG REPLACEMENT MC SCH (12:50)
[2017-09-07] MEDS ORDERED: mag hydrox/Alum hydrox/simeth 30ml oral suspension PO PRN (12:50)
[2017-09-07] MEDS ORDERED: magnesium Cl slow-release 64mg tablet PO PRN (12:50)
[2017-09-07] MEDS ORDERED: ondansetron/PF 4mg/2ml inj IV PRN (12:50)
[2017-09-07] MEDS ORDERED: magnesium 4gm in 100ml NS 100 ML IV PRN (12:50)
[2017-09-07] MEDS ORDERED: acetaminophen 325mg tablet PO PRN ×2 (12:50)
[2017-09-07] MEDS ORDERED: HYDROcodone/acetaminophen 5mg/325mg tablet PO PRN (12:50)
[2017-09-07] MEDS ORDERED: magnesium 2GM in 50ml NS 50 ML IV PRN (12:50)
[2017-09-07] MEDS ORDERED: magnesium hydroxide 30ml (MOM) UD suspension PO PRN (12:50)
[2017-09-07] MEDS ORDERED: ipratropium/albuterol 3ml nebule NEB PRN (13:00)
[2017-09-07] MEDS: HYDROcodone/acetaminophen 10/325mg tab PO PRN (14:14)
[2017-09-07 15:00] VITALS: BP 142/81
[2017-09-07] MEDS ORDERED: dextrose 50%-water 50ml dispensing syringe IV PRN ×2 (17:20)
[2017-09-07] MEDS ORDERED: glucagon, human recombinant 1mg kit SUBCUT PRN (17:20)
[2017-09-07] MEDS ORDERED: MESSAGE TO PHARMACY PO ONE (17:20)
[2017-09-07] MEDS ORDERED: dextrose ORAL solution 15 GM/59 ML bottle PO PRN ×2 (17:20)
[2017-09-07 18:00] VITALS: BP 128/77
[2017-09-07] MEDS: ipratropium/albuterol 3ml nebule NEB SCH ×2 (19:02→23:00)
[2017-09-07 20:19] VITALS: BP 126/68
[2017-09-07] MEDS: gabapentin 300mg capsule PO SCH (20:20)
[2017-09-07] MEDS: furosemide 40mg/4ml inj IV SCH (20:20)
[2017-09-07] MEDS: metoprolol tartrate 25mg tablet PO SCH (20:20)
[2017-09-07] MEDS: insulin Lispro (HumaLOG) vial - multi-dose SQ SCH (20:38)
[2017-09-07] MEDS: insulin glargine (Lantus) pen - multi-dose SQ SCH (20:40)
[2017-09-07] MEDS ORDERED: temazepam 15mg capsule PO PRN (21:00)
[2017-09-07 22:00] VITALS: BP 129/62
[2017-09-08 02:00] VITALS: BP 139/57
[2017-09-08 06:14] LABS: HEMATOCRIT 25.7 % (42.0-52.0); HEMOGLOBIN 7.8 g/dl (14.0-17.9); MEAN CORPUSCULAR HEMOGLOBIN 21.7 PG (27.0-31.0); MEAN CORPUSCULAR HGB CONC 30.2 % (33.0-36.5); MEAN CORPUSCULAR VOLUME 72.1 FL (78-98); MEAN PLATELET VOLUME 8.4 FL (7.4-10.4); PLATELET COUNT 493 X10'3 (140-440); RED BLOOD COUNT 3.57 X10'6 (4.70-6.10); RED CELL DISTRIBUTION WIDTH 24.5 % (11.5-14.5); WHITE BLOOD COUNT 7.7 X10'3 (4.5-11.0)
[2017-09-08 06:33] LABS: ALBUMIN 2.5 G/DL (3.4-5.0); ANION GAP 7 (8-16); BLOOD UREA NITROGEN 19 MG/DL (7-18); BUN/CREATININE RATIO 16.1 (5.4-32.0); CHLORIDE 101 MMOL/L (99-107); CREATININE 1.18 MG/DL (0.60-1.10); GLUCOSE 348 MG/DL (70-104); PHOSPHORUS 3.2 MG/DL (2.3-4.5); POTASSIUM 4.2 MMOL/L (3.5-5.1); SODIUM 144 MMOL/L (135-145); TOTAL CARBON DIOXIDE 36.1 MMOL/L (24-32); eGFR 62 ML/MIN
[2017-09-08 07:00] VITALS: BP 162/92
[2017-09-08] MEDS: ipratropium/albuterol 3ml nebule NEB SCH ×5 (07:27→23:00)
[2017-09-08] MEDS: gabapentin 300mg capsule PO SCH ×2 (07:53→20:01)
[2017-09-08] MEDS: metoprolol tartrate 25mg tablet PO SCH ×2 (07:53→20:01)
[2017-09-08] MEDS: atorvastatin 20mg tablet PO SCH (07:53)
[2017-09-08] MEDS: furosemide 40mg/4ml inj IV SCH ×2 (07:53→20:01)
[2017-09-08] MEDS: pantoprazole 40mg Tablet.DR PO SCH (07:53)
[2017-09-08] MEDS: diltiazem CD 120mg capsule (once-daily) PO SCH (07:53)
[2017-09-08] MEDS: K and/or MAG REPLACEMENT MC SCH (08:00)
[2017-09-08] MEDS ORDERED: enoxaparin 40mg/0.4ml syringe SQ SCH (08:00)
[2017-09-08] MEDS: insulin Lispro (HumaLOG) vial - multi-dose SQ SCH ×3 (08:05→19:26)
[2017-09-08 11:00] VITALS: BP 125/62
[2017-09-08 15:00] VITALS: BP 128/65
[2017-09-08 19:00] VITALS: BP 124/58
[2017-09-08] MEDS: insulin glargine (Lantus) pen - multi-dose SQ SCH (21:34)
[2017-09-08 23:00] VITALS: BP 124/65
[2017-09-09] VITALS (7 sets, daily range): BP systolic 91–152; BP diastolic 57–90
[2017-09-09] MEDS: nystatin 15 GM powder TP SCH ×4 (00:04→21:12)
[2017-09-09] MEDS: HYDROcodone/acetaminophen 10/325mg tab PO PRN ×2 (00:05→21:27)
[2017-09-09] MEDS ORDERED: vancomycin/NS 1 GM ADD-VANTAGE 250 ML IV ONE (03:50)
[2017-09-09 05:43] LABS: HEMATOCRIT 25.8 % (42.0-52.0); HEMOGLOBIN 7.7 g/dl (14.0-17.9); MEAN CORPUSCULAR HEMOGLOBIN 21.6 PG (27.0-31.0); MEAN CORPUSCULAR HGB CONC 29.9 % (33.0-36.5); MEAN CORPUSCULAR VOLUME 72.3 FL (78-98); MEAN PLATELET VOLUME 7.9 FL (7.4-10.4); PLATELET COUNT 524 X10'3 (140-440); RED BLOOD COUNT 3.57 X10'6 (4.70-6.10); WHITE BLOOD COUNT 12.8 X10'3 (4.5-11.0)
[2017-09-09 06:08] LABS: ALBUMIN 2.4 G/DL (3.4-5.0); ANION GAP 5 (8-16); BLOOD UREA NITROGEN 20 MG/DL (7-18); BUN/CREATININE RATIO 21.1 (5.4-32.0); CALCIUM 8.9 MG/DL (8.5-10.1); CHLORIDE 102 MMOL/L (99-107); CREATININE 0.95 MG/DL (0.60-1.10); GLUCOSE 75 MG/DL (70-104); MAGNESIUM 1.9 MG/DL (1.5-2.4); PHOSPHORUS 3.9 MG/DL (2.3-4.5); POTASSIUM 3.5 MMOL/L (3.5-5.1); SODIUM 147 MMOL/L (135-145); TOTAL CARBON DIOXIDE 39.7 MMOL/L (24-32); eGFR 80 ML/MIN
[2017-09-09] MEDS: metoprolol tartrate 25mg tablet PO SCH ×2 (07:42→20:56)
[2017-09-09] MEDS: atorvastatin 20mg tablet PO SCH (07:43)
[2017-09-09] MEDS: diltiazem CD 120mg capsule (once-daily) PO SCH (07:43)
[2017-09-09] MEDS: pantoprazole 40mg Tablet.DR PO SCH (07:43)
[2017-09-09] MEDS: furosemide 40mg/4ml inj IV SCH ×2 (07:43→20:56)
[2017-09-09] MEDS: insulin Lispro (HumaLOG) vial - multi-dose SQ SCH ×3 (07:48→19:03)
[2017-09-09] MEDS ORDERED: nystatin 15 GM powder TP SCH (08:00)
[2017-09-09] MEDS: K and/or MAG REPLACEMENT MC SCH (08:00)
[2017-09-09] MEDS: ipratropium/albuterol 3ml nebule NEB SCH ×5 (09:15→23:00)
[2017-09-09] MEDS: gabapentin 300mg capsule PO SCH ×2 (11:35→20:56)
[2017-09-09] MEDS: sennosides/docusate sodium tablet PO SCH (12:43)
[2017-09-09 16:06] LABS: OCCULT BLOOD STOOL NEGATIVE (Neg)
[2017-09-09] MEDS: polyethylene glycol 3350 17gm powd pack PO SCH (21:00)
[2017-09-09] MEDS: insulin glargine (Lantus) pen - multi-dose SQ SCH (21:07)
[2017-09-10 02:00] VITALS: BP 131/89
[2017-09-10 06:00] LABS: HEMATOCRIT 25.5 % (42.0-52.0); HEMOGLOBIN 7.7 g/dl (14.0-17.9); MEAN CORPUSCULAR HEMOGLOBIN 21.3 PG (27.0-31.0); MEAN PLATELET VOLUME 7.8 FL (7.4-10.4); PLATELET COUNT 511 X10'3 (140-440); RED CELL DISTRIBUTION WIDTH 24.3 % (11.5-14.5); WHITE BLOOD COUNT 9.5 X10'3 (4.5-11.0)
[2017-09-10 07:00] VITALS: BP 143/91
[2017-09-10 07:06] LABS: ALBUMIN 2.3 G/DL (3.4-5.0); ANION GAP 6 (8-16); BLOOD UREA NITROGEN 23 MG/DL (7-18); BUN/CREATININE RATIO 20.9 (5.4-32.0); CALCIUM 8.7 MG/DL (8.5-10.1); CHLORIDE 101 MMOL/L (99-107); GLUCOSE 83 MG/DL (70-104); PHOSPHORUS 4.2 MG/DL (2.3-4.5); POTASSIUM 3.5 MMOL/L (3.5-5.1); SODIUM 147 MMOL/L (135-145); TOTAL CARBON DIOXIDE 39.9 MMOL/L (24-32); eGFR 67 ML/MIN
[2017-09-10] MEDS: furosemide 40mg/4ml inj IV SCH (07:16)
[2017-09-10] MEDS: atorvastatin 20mg tablet PO SCH (07:17)
[2017-09-10] MEDS: pantoprazole 40mg Tablet.DR PO SCH (07:17)
[2017-09-10] MEDS: metoprolol tartrate 25mg tablet PO SCH (07:18)
[2017-09-10] MEDS: gabapentin 300mg capsule PO SCH ×2 (07:18→20:32)
[2017-09-10] MEDS: nystatin 15 GM powder TP SCH ×3 (07:18→20:34)
[2017-09-10] MEDS: diltiazem CD 120mg capsule (once-daily) PO SCH (07:22)
[2017-09-10] MEDS: K and/or MAG REPLACEMENT MC SCH (08:00)
[2017-09-10] MEDS: sennosides/docusate sodium tablet PO SCH (08:00)
[2017-09-10] MEDS: insulin Lispro (HumaLOG) vial - multi-dose SQ SCH ×2 (08:44→13:48)
[2017-09-10] MEDS: ipratropium/albuterol 3ml nebule NEB SCH ×5 (09:45→23:00)
[2017-09-10 11:00] VITALS: BP 140/51
[2017-09-10 15:00] VITALS: BP 132/70
[2017-09-10] MEDS ORDERED: metoprolol tartrate 25mg tablet PO ONE (15:10)
[2017-09-10 18:30] VITALS: BP 145/67
[2017-09-10] MEDS: metoprolol tartrate 50mg tablet PO SCH (20:33)
[2017-09-10] MEDS: polyethylene glycol 3350 17gm powd pack PO SCH (20:34)
[2017-09-10 21:00] LABS: CLARITY,URINE CLEAR (Clear); COLOR,URINE YELLOW (Yellow); GLUCOSE, URINE NEGATIVE (Neg); KETONES,URINE NEGATIVE (Neg); LEUKOCYTE ESTERASE ,URINE NEGATIVE (Neg); NITRITES, URINE NEGATIVE (Neg); OCCULT BLOOD,URINE NEGATIVE (Neg); PROTEIN,URINE NEGATIVE (Neg)
[2017-09-10 21:03] LABS: UA COLLECTION TYPE VOIDED
[2017-09-10] MEDS: insulin glargine (Lantus) pen - multi-dose SQ SCH (21:07)
[2017-09-10] MEDS: HYDROcodone/acetaminophen 10/325mg tab PO PRN (21:13)
[2017-09-10 22:00] VITALS: BP 119/58
[2017-09-11 02:00] VITALS: BP 126/66
[2017-09-11] MEDS: ipratropium/albuterol 3ml nebule NEB SCH ×5 (03:31→15:06)
[2017-09-11 05:30] VITALS: BP 117/83
[2017-09-11 06:39] LABS: HEMATOCRIT 26.3 % (42.0-52.0); HEMOGLOBIN 7.8 g/dl (14.0-17.9); MEAN CORPUSCULAR HEMOGLOBIN 21.3 PG (27.0-31.0); MEAN CORPUSCULAR HGB CONC 29.7 % (33.0-36.5); MEAN CORPUSCULAR VOLUME 71.5 FL (78-98); MEAN PLATELET VOLUME 7.8 FL (7.4-10.4); PLATELET COUNT 532 X10'3 (140-440); RED BLOOD COUNT 3.67 X10'6 (4.70-6.10); WHITE BLOOD COUNT 7.9 X10'3 (4.5-11.0)
[2017-09-11 06:58] LABS: ALBUMIN 2.4 G/DL (3.4-5.0); ANION GAP 5 (8-16); BLOOD UREA NITROGEN 22 MG/DL (7-18); BUN/CREATININE RATIO 22.9 (5.4-32.0); CHLORIDE 101 MMOL/L (99-107); CREATININE 0.96 MG/DL (0.60-1.10); GLUCOSE 123 MG/DL (70-104); PHOSPHORUS 4.2 MG/DL (2.3-4.5); POTASSIUM 3.4 MMOL/L (3.5-5.1); SODIUM 145 MMOL/L (135-145); TOTAL CARBON DIOXIDE 38.7 MMOL/L (24-32); eGFR 79 ML/MIN
[2017-09-11] MEDS ORDERED: potassium Cl 20 mEq SR tablet PO PRN (07:40)
[2017-09-11] MEDS ORDERED: potassium Cl 40MEQ/NS 500ml 500 ML IV PRN ×2 (07:40)
[2017-09-11 07:57] VITALS: BP 138/78
[2017-09-11] MEDS: K and/or MAG REPLACEMENT MC SCH (08:00)
[2017-09-11] MEDS: sennosides/docusate sodium tablet PO SCH (08:00)
[2017-09-11] MEDS: diltiazem CD 120mg capsule (once-daily) PO SCH (08:02)
[2017-09-11] MEDS: atorvastatin 20mg tablet PO SCH (08:02)
[2017-09-11] MEDS: metoprolol tartrate 50mg tablet PO SCH (08:02)
[2017-09-11] MEDS: gabapentin 300mg capsule PO SCH (08:02)
[2017-09-11] MEDS: pantoprazole 40mg Tablet.DR PO SCH (08:02)
[2017-09-11] MEDS: potassium Cl 20 mEq SR tablet PO PRN ×2 (08:03→13:31)
[2017-09-11] MEDS: nystatin 15 GM powder TP SCH ×2 (08:04→13:31)
[2017-09-11] MEDS: HYDROcodone/acetaminophen 10/325mg tab PO PRN (08:04)
[2017-09-11] MEDS ORDERED: furosemide 40mg tablet PO SCH (08:15)
[2017-09-11] MEDS: insulin Lispro (HumaLOG) vial - multi-dose SQ SCH ×2 (09:02→13:34)
[2017-09-11 11:00] VITALS: BP 130/78
== END 2017-09-11 17:00 | DRG 189 ==
LOC: ER 10:07 → ED HOLD 12:47 → EDBEDREQ 14:44 → PCU 3S 15:05
PROVIDERS: ADMIT Family Medicine; ATTEND Family Medicine
DX: J96.01 Acute respiratory failure with hypoxia (principal); I50.33 Acute on chronic diastolic (congestive) heart failure; E11.22 Type 2 diabetes mellitus with diabetic chronic kidney disease; I48.91 Unspecified atrial fibrillation; E87.1 Hypo-osmolality and hyponatremia; B37.2 Candidiasis of skin and nail; J43.9 Emphysema, unspecified; Z68.41 Body mass index [BMI] 40.0-44.9, adult; I13.0 Hypertensive heart and chronic kidney disease with heart failure and stage 1 through stage 4 chronic kidney disease, or unspecified chronic kidney disease; Z99.81 Dependence on supplemental oxygen; E66.9 Obesity, unspecified; D50.9 Iron deficiency anemia, unspecified; E78.5 Hyperlipidemia, unspecified; E78.00 Pure hypercholesterolemia, unspecified; N18.1 Chronic kidney disease, stage 1; G47.30 Sleep apnea, unspecified; I25.10 Atherosclerotic heart disease of native coronary artery without angina pectoris; N40.0 Benign prostatic hyperplasia without lower urinary tract symptoms; Z60.2 Problems related to living alone; Z95.1 Presence of aortocoronary bypass graft; Z95.2 Presence of prosthetic heart valve; Z56.0 Unemployment, unspecified; Z79.899 Other long term (current) drug therapy; Z85.46 Personal history of malignant neoplasm of prostate; Z87.891 Personal history of nicotine dependence
CPT/HCPCS: 36415; 71045; 80048; 80053; 81003; 82272; 82948; 83036; 83605; 83735; 83880; 84100; 84484; 85025; 85027; 85610; 85730; 87040; 87070; 87077; 87186; 93005; 94640; 94760; 96360; 97110; 97116; 97162; 99285; J1815; J1940; J2930; J3370; J7030

== ENCOUNTER 2017-09-16 20:37 | Inpatient (IN) | payer MEDICARE, MEDICAID ==
[~2017-09-16] VITALS: Ht 180.3 cm; Wt 134.0 kg
[2017-09-16 21:10] LABS: INR 1.2 INR; PARTIAL THROMBOPLASTIN TIME 27 SECONDS (22-32); PROTHROMBIN TIME 12.6 SECONDS (9.0-12.0)
[2017-09-16 21:19] LABS: BASOPHILS % (AUTO) 0 % (0-1); EOSINOPHILS % (AUTO) 0.1 % (0-6); HEMATOCRIT 27.1 % (42.0-52.0); HEMOGLOBIN 8.1 g/dl (14.0-17.9); LYMPHOCYTES # (AUTO) 0.8 X10'3 (1.1-4.8); LYMPHOCYTES % (AUTO) 5.3 % (21-51); MEAN CORPUSCULAR HEMOGLOBIN 21.1 PG (27.0-31.0); MEAN CORPUSCULAR HGB CONC 29.8 % (33.0-36.5); MEAN PLATELET VOLUME 8.6 FL (7.4-10.4); MONOCYTES # (AUTO) 1.2 X10'3 (0-0.9); MONOCYTES % (AUTO) 7.7 % (2-12); NEUTROPHILS # (AUTO) 13.6 X10'3 (1.8-7.7); NEUTROPHILS % (AUTO) 86.9 % (42-75); PLATELET COUNT 537 X10'3 (140-440); RED BLOOD COUNT 3.82 X10'6 (4.70-6.10); RED CELL DISTRIBUTION WIDTH 21.5 % (11.5-14.5); WHITE BLOOD COUNT 15.6 X10'3 (4.5-11.0)
[2017-09-16] MEDS ORDERED: vancomycin/NS 1 GM ADD-VANTAGE 250 ML IV ONE (21:25)
[2017-09-16] MEDS ORDERED: piperacillin/tazo 3.375gm/50ml 50 ML IV ONE (21:25)
[2017-09-16 21:31] LABS: ALANINE AMINOTRANSFERASE 42 U/L (12-78); ALBUMIN 2.7 G/DL (3.4-5.0); ALBUMIN/GLOBULIN RATIO 0.6 (1.1-1.5); ALKALINE PHOSPHATASE 67 IU/L (46-116); ANION GAP 7 (8-16); ASPARTATE AMINO TRANSFERASE 23 U/L (10-37); BLOOD UREA NITROGEN 14 MG/DL (7-18); BUN/CREATININE RATIO 14.6 (5.4-32.0); CALCIUM 8.7 MG/DL (8.5-10.1); CHLORIDE 103 MMOL/L (99-107); CREATININE 0.96 MG/DL (0.60-1.10); GLUCOSE 143 MG/DL (70-104); SODIUM 145 MMOL/L (135-145); TOTAL CARBON DIOXIDE 35.2 MMOL/L (24-32); TOTAL PROTEIN 7.1 G/DL (6.4-8.2); eGFR 79 ML/MIN
[2017-09-16 22:11] LABS: ANISOCYTOSIS 3+; ELLIPTOCYTES 1+; MICROCYTOSIS FEW; PLATELET ESTIMATE INCREASED; POLYCHROMASIA 1+
[2017-09-16] MEDS ORDERED: magnesium hydroxide 30ml (MOM) UD suspension PO PRN (23:05)
[2017-09-16] MEDS ORDERED: mag hydrox/Alum hydrox/simeth 30ml oral suspension PO PRN (23:05)
[2017-09-16] MEDS ORDERED: acetaminophen 325mg tablet PO PRN (23:05)
[2017-09-16] MEDS ORDERED: ondansetron/PF 4mg/2ml inj IV PRN (23:05)
[2017-09-16] MEDS ORDERED: MESSAGE TO PHARMACY PO ONE (23:10)
[2017-09-16] MEDS ORDERED: glucagon, human recombinant 1mg kit SUBCUT PRN (23:10)
[2017-09-16] MEDS ORDERED: dextrose ORAL solution 15 GM/59 ML bottle PO PRN ×2 (23:10)
[2017-09-16] MEDS ORDERED: dextrose 50%-water 50ml dispensing syringe IV PRN ×2 (23:10)
[2017-09-16] MEDS ORDERED: azithromycin 250mg tablet PO ONE (23:10)
[2017-09-16] MEDS: CefTRIAXone 2gm/NS 100ml IVPB 100 ML IV SCH (23:34)
[2017-09-16] MEDS ORDERED: BISA10SU60 RC (23:56)
[2017-09-16] MEDS ORDERED: NA P230E PR (23:59)
[2017-09-16] MEDS ORDERED: GLUC1KIT IM (23:59)
[2017-09-16] MEDS ORDERED: DEXT38GE12 (23:59)
[2017-09-17] MEDS ORDERED: ATR0.5NEB IH (00:07)
[2017-09-17] MEDS ORDERED: ACET-2119 PO (00:07)
[2017-09-17] MEDS ORDERED: MULT-38 PO (00:07)
[2017-09-17] MEDS ORDERED: SENN-161 PO (00:07)
[2017-09-17] MEDS ORDERED: POTA20PA3 PO (00:07)
[2017-09-17] MEDS ORDERED: OMEP40CA37 PO (00:07)
[2017-09-17] MEDS ORDERED: FURO-149 PO (00:07)
[2017-09-17] MEDS ORDERED: HYDR-569 PO (00:07)
[2017-09-17] MEDS ORDERED: MAG355OR18 PO (00:09)
[2017-09-17] MEDS ORDERED: METF500T PO (00:09)
[2017-09-17] MEDS ORDERED: MAGN400O6 PO (00:10)
[2017-09-17] MEDS ORDERED: POLY17PO10 PO (00:11)
[2017-09-17 03:01] LABS: BASOPHILS # (AUTO) 0.1 X10'3 (0-0.2); BASOPHILS % (AUTO) 0.4 % (0-1); EOSINOPHILS # (AUTO) 0.2 X10'3 (0-0.9); EOSINOPHILS % (AUTO) 1.5 % (0-6); HEMATOCRIT 26.2 % (42.0-52.0); HEMOGLOBIN 7.7 g/dl (14.0-17.9); LYMPHOCYTES # (AUTO) 0.8 X10'3 (1.1-4.8); LYMPHOCYTES % (AUTO) 5.5 % (21-51); MEAN CORPUSCULAR HEMOGLOBIN 20.9 PG (27.0-31.0); MEAN CORPUSCULAR HGB CONC 29.5 % (33.0-36.5); MEAN PLATELET VOLUME 7.8 FL (7.4-10.4); MONOCYTES # (AUTO) 1.2 X10'3 (0-0.9); MONOCYTES % (AUTO) 7.9 % (2-12); NEUTROPHILS # (AUTO) 13.1 X10'3 (1.8-7.7); NEUTROPHILS % (AUTO) 84.7 % (42-75); PLATELET COUNT 480 X10'3 (140-440); RED BLOOD COUNT 3.69 X10'6 (4.70-6.10); RED CELL DISTRIBUTION WIDTH 23.9 % (11.5-14.5); WHITE BLOOD COUNT 15.4 X10'3 (4.5-11.0)
[2017-09-17 03:17] LABS: ALANINE AMINOTRANSFERASE 39 U/L (12-78); ALBUMIN 2.5 G/DL (3.4-5.0); ALBUMIN/GLOBULIN RATIO 0.6 (1.1-1.5); ALKALINE PHOSPHATASE 61 IU/L (46-116); ANION GAP 6 (8-16); ASPARTATE AMINO TRANSFERASE 22 U/L (10-37); BLOOD UREA NITROGEN 16 MG/DL (7-18); BUN/CREATININE RATIO 14.4 (5.4-32.0); CALCIUM 8.7 MG/DL (8.5-10.1); CHLORIDE 103 MMOL/L (99-107); CREATININE 1.11 MG/DL (0.60-1.10); GLUCOSE 177 MG/DL (70-104); POTASSIUM 4.4 MMOL/L (3.5-5.1); SODIUM 144 MMOL/L (135-145); TOTAL CARBON DIOXIDE 34.7 MMOL/L (24-32); TOTAL PROTEIN 6.8 G/DL (6.4-8.2); eGFR 66 ML/MIN
[2017-09-17] MEDS: ipratropium/albuterol 3ml nebule IH PRN ×2 (03:34→12:39)
[2017-09-17 07:30] VITALS: BP 130/85
[2017-09-17] MEDS: pantoprazole 40mg Tablet.DR PO SCH (08:20)
[2017-09-17] MEDS: diltiazem CD 120mg capsule (once-daily) PO SCH (08:20)
[2017-09-17] MEDS: lactobacillus rhamnosus 10,000 MMU CELLS/CAPSULE PO SCH ×2 (08:21→20:23)
[2017-09-17] MEDS: metoprolol tartrate 25mg tablet PO SCH ×2 (08:21→20:23)
[2017-09-17] MEDS: gabapentin 300mg capsule PO SCH ×2 (08:21→20:23)
[2017-09-17 10:00] VITALS: BP 137/68
[2017-09-17] MEDS ORDERED: ipratropium/albuterol 3ml nebule NEB PRN (15:35)
[2017-09-17] MEDS ORDERED: methylPREDNISolone sod succ 125mg/2ml vial IV ONE (17:55)
[2017-09-17 18:30] VITALS: BP 142/70
[2017-09-17] MEDS: ipratropium/albuterol 3ml nebule NEB PRN (19:25)
[2017-09-17] MEDS: methylPREDNISolone sod succ 125mg/2ml vial IV SCH (20:00)
[2017-09-17] MEDS: CefTRIAXone 2gm/NS 100ml IVPB 100 ML IV SCH (20:26)
[2017-09-17 20:27] VITALS: BP 146/72
[2017-09-17] MEDS ORDERED: insulin glargine (Lantus) pen - multi-dose SQ SCH (21:00)
[2017-09-17] MEDS ORDERED: atorvastatin 20mg tablet PO SCH (21:00)
[2017-09-17 22:00] VITALS: BP 142/78
[2017-09-18] MEDS: ipratropium/albuterol 3ml nebule NEB PRN ×4 (00:20→12:48)
[2017-09-18] MEDS: methylPREDNISolone sod succ 125mg/2ml vial IV SCH ×3 (01:47→15:03)
[2017-09-18 07:07] LABS: BASOPHILS % (AUTO) 0 % (0-1); EOSINOPHILS # (AUTO) 0.1 X10'3 (0-0.9); EOSINOPHILS % (AUTO) 1.3 % (0-6); HEMATOCRIT 26.2 % (42.0-52.0); HEMOGLOBIN 7.7 g/dl (14.0-17.9); LYMPHOCYTES # (AUTO) 0.3 X10'3 (1.1-4.8); LYMPHOCYTES % (AUTO) 3.1 % (21-51); MEAN CORPUSCULAR HEMOGLOBIN 20.9 PG (27.0-31.0); MEAN CORPUSCULAR HGB CONC 29.3 % (33.0-36.5); MEAN CORPUSCULAR VOLUME 71.3 FL (78-98); MEAN PLATELET VOLUME 8.6 FL (7.4-10.4); MONOCYTES # (AUTO) 0.1 X10'3 (0-0.9); MONOCYTES % (AUTO) 0.8 % (2-12); NEUTROPHILS # (AUTO) 8.5 X10'3 (1.8-7.7); NEUTROPHILS % (AUTO) 94.8 % (42-75); PLATELET COUNT 450 X10'3 (140-440); RED BLOOD COUNT 3.68 X10'6 (4.70-6.10); RED CELL DISTRIBUTION WIDTH 24.2 % (11.5-14.5)
[2017-09-18 07:28] VITALS: BP 140/63
[2017-09-18 07:30] LABS: ALANINE AMINOTRANSFERASE 42 U/L (12-78); ALBUMIN 2.6 G/DL (3.4-5.0); ALBUMIN/GLOBULIN RATIO 0.6 (1.1-1.5); ALKALINE PHOSPHATASE 62 IU/L (46-116); ANION GAP 7 (8-16); ASPARTATE AMINO TRANSFERASE 21 U/L (10-37); BILIRUBIN,TOTAL 0.6 MG/DL (0.1-1.0); BLOOD UREA NITROGEN 19 MG/DL (7-18); BUN/CREATININE RATIO 19.4 (5.4-32.0); CALCIUM 8.7 MG/DL (8.5-10.1); CHLORIDE 103 MMOL/L (99-107); CREATININE 0.98 MG/DL (0.60-1.10); GLUCOSE 283 MG/DL (70-104); POTASSIUM 4.1 MMOL/L (3.5-5.1); SODIUM 142 MMOL/L (135-145); TOTAL CARBON DIOXIDE 32.4 MMOL/L (24-32); eGFR 77 ML/MIN
[2017-09-18 07:46] LABS: ANISOCYTOSIS 3+; ELLIPTOCYTES 2+; HYPOCHROMASIA 2+; LARGE PLATELETS FEW; PLATELET ESTIMATE INCREASED; POIKILOCYTOSIS 2+; POLYCHROMASIA 1+
[2017-09-18] MEDS: insulin Lispro (HumaLOG) vial - multi-dose SQ SCH ×2 (08:54→14:21)
[2017-09-18] MEDS: gabapentin 300mg capsule PO SCH (08:56)
[2017-09-18] MEDS: lactobacillus rhamnosus 10,000 MMU CELLS/CAPSULE PO SCH (08:56)
[2017-09-18] MEDS: metoprolol tartrate 25mg tablet PO SCH (08:56)
[2017-09-18] MEDS: pantoprazole 40mg Tablet.DR PO SCH (08:57)
[2017-09-18 09:02] VITALS: BP 133/59
[2017-09-18] MEDS: diltiazem CD 120mg capsule (once-daily) PO SCH (09:02)
[2017-09-18 13:21] VITALS: BP 140/54
== END 2017-09-18 18:17 | DRG 871 ==
LOC: ER 20:37 → ED HOLD 23:04 → EDBEDREQ 09-17 06:02 → ORTHO 4S 09-17 07:30
PROVIDERS: ADMIT Internal Medicine; ATTEND Family Medicine
DX: A41.9 Sepsis, unspecified organism (principal); I50.33 Acute on chronic diastolic (congestive) heart failure; N17.9 Acute kidney failure, unspecified; I13.0 Hypertensive heart and chronic kidney disease with heart failure and stage 1 through stage 4 chronic kidney disease, or unspecified chronic kidney disease; E11.22 Type 2 diabetes mellitus with diabetic chronic kidney disease; J18.1 Lobar pneumonia, unspecified organism; I48.91 Unspecified atrial fibrillation; J44.0 Chronic obstructive pulmonary disease with (acute) lower respiratory infection; L03.115 Cellulitis of right lower limb; L03.116 Cellulitis of left lower limb; Z68.41 Body mass index [BMI] 40.0-44.9, adult; J44.1 Chronic obstructive pulmonary disease with (acute) exacerbation; N18.9 Chronic kidney disease, unspecified; E66.01 Morbid (severe) obesity due to excess calories; D64.9 Anemia, unspecified; J20.9 Acute bronchitis, unspecified; E78.00 Pure hypercholesterolemia, unspecified; E78.5 Hyperlipidemia, unspecified; G47.33 Obstructive sleep apnea (adult) (pediatric); I25.10 Atherosclerotic heart disease of native coronary artery without angina pectoris; I87.8 Other specified disorders of veins; N40.0 Benign prostatic hyperplasia without lower urinary tract symptoms; R09.02 Hypoxemia; Z95.1 Presence of aortocoronary bypass graft; Z87.891 Personal history of nicotine dependence; Z79.899 Other long term (current) drug therapy
CPT/HCPCS: 36415; 71045; 80053; 82948; 83036; 83605; 83880; 84145; 84484; 85025; 85610; 85730; 87040; 87070; 92616; 93005; 94640; 94760; 96365; 96366; 96368; 97116; 97161; 99285; J0696; J1815; J2543; J2930; J3370

== ENCOUNTER 2017-09-20 13:45 | Inpatient (IN) | payer MEDICARE, MEDICAID ==
[~2017-09-20] VITALS: Ht 170.2 cm; Wt 150.8 kg
[~2017-09-20 13:45] MED LIST changes: +ACET-2119 PO; +ATR0.5NEB IH; +BISA10SU60 RC; +DEXT38GE12; +FURO-149 PO; +GLUC1KIT IM; +HYDR-569 PO; +MAG355OR18 PO; +MAGN400O6 PO; +METF500T PO; +MULT-38 PO; +NA P230E PR; +OMEP40CA37 PO; +POLY17PO10 PO; +POTA20PA3 PO; +SENN-161 PO; +rocuronium 10mg/ml inj IV ONE
[2017-09-20] MEDS ORDERED: propofol 1000mg/100ml bottle 100 ML IV SCH (14:00)
[2017-09-20] MEDS ORDERED: iohexol 350MG/ML 100ml bottle IV ONE (14:04)
[2017-09-20 14:25] LABS: ABG BASE EXCESS 4.5 mmol/L (-2.0-3.0); ABG OXYGEN SATURATION 99.5 % (95-98); ABG PCO2 (T) 76.1 mmHg (35.0-48.0); ABG PH (T) 7.255 (7.350-7.450); ABG PO2 (T) 435.2 mmHg (83-108); ALLEN'S TEST Positive; FMetHb 0.2 % (0.3-1.12); FO2Hb 98.3 % (94-100); MINUTE VOLUME 8 L/min; PEEP 5 cm H2O; RESPIRATORY RATE 12 b/min; RESPIRATORY RATE (OBSERVED) 12 b/min; TOTAL HEMOGLOBIN 9.3 G/dl (14.0-18.0)
[2017-09-20 14:28] LABS: INR 1.3 INR; PARTIAL THROMBOPLASTIN TIME 24 SECONDS (22-32); PROTHROMBIN TIME 13.4 SECONDS (9.0-12.0)
[2017-09-20 14:36] LABS: ALANINE AMINOTRANSFERASE 442 U/L (12-78); ALBUMIN/GLOBULIN RATIO 0.7 (1.1-1.5); ALKALINE PHOSPHATASE 72 IU/L (46-116); ANION GAP 7 (8-16); ASPARTATE AMINO TRANSFERASE 444 U/L (10-37); BILIRUBIN,TOTAL 0.6 MG/DL (0.1-1.0); BLOOD UREA NITROGEN 32 MG/DL (7-18); BUN/CREATININE RATIO 25.8 (5.4-32.0); CHLORIDE 106 MMOL/L (99-107); CREATININE 1.24 MG/DL (0.60-1.10); GLUCOSE 179 MG/DL (70-104); POTASSIUM 4.8 MMOL/L (3.5-5.1); SODIUM 147 MMOL/L (135-145); TOTAL CARBON DIOXIDE 34.4 MMOL/L (24-32); TOTAL PROTEIN 7.6 G/DL (6.4-8.2); eGFR 59 ML/MIN
[2017-09-20 14:44] LABS: BASOPHILS % (AUTO) 0 % (0-1); EOSINOPHILS # (AUTO) 0.3 X10'3 (0-0.9); EOSINOPHILS % (AUTO) 1.9 % (0-6); HEMATOCRIT 30.1 % (42.0-52.0); HEMOGLOBIN 8.6 g/dl (14.0-17.9); LYMPHOCYTES # (AUTO) 0.3 X10'3 (1.1-4.8); LYMPHOCYTES % (AUTO) 1.6 % (21-51); MEAN CORPUSCULAR HEMOGLOBIN 20.8 PG (27.0-31.0); MEAN CORPUSCULAR HGB CONC 28.6 % (33.0-36.5); MEAN CORPUSCULAR VOLUME 72.8 FL (78-98); MEAN PLATELET VOLUME 8.7 FL (7.4-10.4); MONOCYTES # (AUTO) 0.7 X10'3 (0-0.9); MONOCYTES % (AUTO) 4.1 % (2-12); NEUTROPHILS # (AUTO) 16.7 X10'3 (1.8-7.7); NEUTROPHILS % (AUTO) 92.4 % (42-75); PLATELET COUNT 549 X10'3 (140-440); RED BLOOD COUNT 4.14 X10'6 (4.70-6.10); RED CELL DISTRIBUTION WIDTH 23.3 % (11.5-14.5); WHITE BLOOD COUNT 18.1 X10'3 (4.5-11.0)
[2017-09-20 14:48] LABS: PLATELET ESTIMATE INCREASED
[2017-09-20 14:49] LABS: ANISOCYTOSIS 3+; ELLIPTOCYTES 1+; HYPOCHROMASIA 1+; LARGE PLATELETS FEW
[2017-09-20] MEDS ORDERED: piperacillin/tazo 3.375gm/50ml 50 ML IV STA (15:03)
[2017-09-20] MEDS ORDERED: normal saline 1000ml 1,000 ML IV ONE (15:05)
[2017-09-20] MEDS ORDERED: fentaNYL/PF 50MCG/1 ML 2ML syringe IV PRN ×2 (16:10→17:00)
[2017-09-20 16:28] LABS: CLARITY,URINE SLIGHTLY CLOUDY (Clear); COLOR,URINE YELLOW (Yellow); GLUCOSE, URINE NEGATIVE (Neg); KETONES,URINE NEGATIVE (Neg); LEUKOCYTE ESTERASE ,URINE NEGATIVE (Neg); NITRITES, URINE NEGATIVE (Neg); OCCULT BLOOD,URINE MODERATE (Neg); PH,URINE 5.5 (4.8-8.0); PROTEIN,URINE 100 mg/dl (Neg); UROBILINOGEN,URINE 0.2 E.U/dL (0.2-1.0)
[2017-09-20 16:32] LABS: UA COLLECTION TYPE FOLEY CATH
[2017-09-20 16:36] LABS: AMORPHOUS URATES 1+; BACTERIA,URINE NONE SEEN /HPF (Neg); HYALINE CASTS 0-3 /LPF (NEGATIVE); MUCUS STRANDS FEW /LPF (Neg); RBC,URINE NONE SEEN /HPF (0-2); SQUAMOUS EPITHELIAL CELL,UR FEW /LPF (FEW); WBC,URINE 0-4 /HPF (0-4)
[2017-09-20 16:42] LABS: URINE AMPHETAMINE SCREEN NEGATIVE (Neg); URINE BARBITUATE SCREEN NEGATIVE (Neg); URINE BENZODIAZEPINES SCREEN NEGATIVE (Neg); URINE CANNABINOID SCREEN NEGATIVE (Neg); URINE COCAINE SCREEN NEGATIVE (Neg); URINE METHADONE SCREEN NEGATIVE (Neg); URINE OPIATE SCREEN NEGATIVE (Neg); URINE PHENCYCLIDINE SCREEN NEGATIVE (Neg)
[2017-09-20] MEDS ORDERED: FENTANYL-0.9 % NACL/PF 100 ML IV PRN (16:58)
[2017-09-20] MEDS ORDERED: piperacillin/tazo 3.375gm/50ml 50 ML IV SCH (17:00)
[2017-09-20] MEDS ORDERED: potassium Cl 40MEQ/NS 500ml 500 ML IV PRN ×2 (17:00)
[2017-09-20] MEDS ORDERED: midazolam 2 mg/2 ml injection IV ONE (17:00)
[2017-09-20] MEDS ORDERED: vancomycin/NS 1 GM ADD-VANTAGE 250 ML IV SCH (17:00)
[2017-09-20] MEDS ORDERED: potassium Cl 40MEQ/250ML bag 250 ML IV SCH (17:00)
[2017-09-20] MEDS ORDERED: ipratropium/albuterol 3ml nebule NEB PRN (17:00)
[2017-09-20] MEDS ORDERED: ondansetron/PF 4mg/2ml inj IV PRN (17:00)
[2017-09-20] MEDS ORDERED: potassium Cl 40MEQ/250ML bag 250 ML IV PRN (17:00)
[2017-09-20] MEDS ORDERED: potassium Cl 20 mEq SR tablet PO PRN (17:00)
[2017-09-20] MEDS: normal saline 1000ml 1,000 ML IV SCH ×2 (17:15→23:38)
[2017-09-20] MEDS: ipratropium/albuterol 3ml nebule NEB SCH ×2 (19:53→23:28)
[2017-09-20 21:15] VITALS: BP 131/71
[2017-09-20 22:00] VITALS: BP 122/82
[2017-09-20] MEDS: docusate sod 100mg capsule PO SCH (22:48)
[2017-09-20] MEDS: morphine/NS 100mg/100ml bag 100 ML IV SCH (22:55)
[2017-09-20] MEDS: famotidine/PF 10 mg/ml inj IV SCH (22:55)
[2017-09-20] MEDS: piperacillin/tazo 3.375gm/50ml 50 ML IV SCH (22:56)
[2017-09-20] MEDS: heparin, porcine 5000 units/ml vial SQ SCH (22:56)
[2017-09-20 23:00] VITALS: BP 144/86
[2017-09-21] VITALS (24 sets, daily range): BP systolic 125–151; BP diastolic 65–86
[2017-09-21 01:31] LABS: ABG BASE EXCESS 4.9 mmol/L (-2.0-3.0); ABG HCO3 31.2 mmol/L (22.0-26.0); ABG PCO2 (T) 55.3 mmHg (35.0-48.0); ABG PH (T) 7.367 (7.350-7.450); ABG PO2 (T) 81.2 mmHg (83-108); ALLEN'S TEST Positive; FCOHb 0.8 % (0.5-1.5); FMetHb 0.1 % (0.3-1.12); FO2Hb 94.1 % (94-100); MINUTE VOLUME 8 L/min; PATIENT TEMPERATURE 36.4; PEEP 5 cm H2O; RESPIRATORY RATE 12 b/min; RESPIRATORY RATE (OBSERVED) 12 b/min; TIDAL VOLUME 600 mL; TOTAL HEMOGLOBIN 8.5 G/dl (14.0-18.0)
[2017-09-21] MEDS ORDERED: MESSAGE TO PHARMACY PO ONE (03:10)
[2017-09-21] MEDS ORDERED: dextrose 50%-water 50ml dispensing syringe IV PRN ×2 (03:10)
[2017-09-21] MEDS ORDERED: glucagon, human recombinant 1mg kit SUBCUT PRN (03:10)
[2017-09-21] MEDS ORDERED: dextrose ORAL solution 15 GM/59 ML bottle PO PRN ×2 (03:10)
[2017-09-21] MEDS: ipratropium/albuterol 3ml nebule NEB SCH ×5 (04:16→19:21)
[2017-09-21 04:33] LABS: BASOPHILS % (AUTO) 0 % (0-1); EOSINOPHILS # (AUTO) 0.1 X10'3 (0-0.9); EOSINOPHILS % (AUTO) 1.6 % (0-6); HEMATOCRIT 25.2 % (42.0-52.0); HEMOGLOBIN 7.3 g/dl (14.0-17.9); LYMPHOCYTES # (AUTO) 0.2 X10'3 (1.1-4.8); LYMPHOCYTES % (AUTO) 3.2 % (21-51); MEAN CORPUSCULAR HEMOGLOBIN 20.7 PG (27.0-31.0); MEAN CORPUSCULAR HGB CONC 28.8 % (33.0-36.5); MONOCYTES # (AUTO) 0.3 X10'3 (0-0.9); MONOCYTES % (AUTO) 3.7 % (2-12); NEUTROPHILS % (AUTO) 91.5 % (42-75); PLATELET COUNT 331 X10'3 (140-440); RED CELL DISTRIBUTION WIDTH 23.6 % (11.5-14.5); WHITE BLOOD COUNT 7.6 X10'3 (4.5-11.0)
[2017-09-21 04:55] LABS: ALANINE AMINOTRANSFERASE 781 U/L (12-78); ALBUMIN 2.3 G/DL (3.4-5.0); ALBUMIN/GLOBULIN RATIO 0.7 (1.1-1.5); ALKALINE PHOSPHATASE 53 IU/L (46-116); ANION GAP 4 (8-16); ASPARTATE AMINO TRANSFERASE 676 U/L (10-37); BILIRUBIN,TOTAL 0.6 MG/DL (0.1-1.0); BLOOD UREA NITROGEN 32 MG/DL (7-18); BUN/CREATININE RATIO 34.4 (5.4-32.0); CALCIUM 8.1 MG/DL (8.5-10.1); CHLORIDE 111 MMOL/L (99-107); CREATININE 0.93 MG/DL (0.60-1.10); GLUCOSE 202 MG/DL (70-104); MAGNESIUM 2.3 MG/DL (1.5-2.4); PHOSPHORUS 2.8 MG/DL (2.3-4.5); POTASSIUM 4.3 MMOL/L (3.5-5.1); SODIUM 149 MMOL/L (135-145); TOTAL CARBON DIOXIDE 34.3 MMOL/L (24-32); TOTAL PROTEIN 5.7 G/DL (6.4-8.2); eGFR 82 ML/MIN
[2017-09-21] MEDS: piperacillin/tazo 3.375gm/50ml 50 ML IV SCH ×4 (06:32→21:51)
[2017-09-21] MEDS: normal saline 1000ml 1,000 ML IV SCH ×2 (06:33→12:34)
[2017-09-21] MEDS: famotidine/PF 10 mg/ml inj IV SCH ×2 (07:16→21:51)
[2017-09-21] MEDS: heparin, porcine 5000 units/ml vial SQ SCH ×2 (07:16→21:47)
[2017-09-21] MEDS: docusate sod 100mg capsule PO SCH ×2 (07:17→20:00)
[2017-09-21 08:31] LABS: ABG BASE EXCESS 6.4 mmol/L (-2.0-3.0); ABG HCO3 31.9 mmol/L (22.0-26.0); ABG OXYGEN SATURATION 94.5 % (95-98); ABG PCO2 (T) 52.1 mmHg (35.0-48.0); ABG PH (T) 7.405 (7.350-7.450); ABG PO2 (T) 78.6 mmHg (83-108); ALLEN'S TEST Positive; FCOHb 0.6 % (0.5-1.5); FMetHb 0.3 % (0.3-1.12); FO2Hb 93.6 % (94-100); MINUTE VOLUME 10 L/min; PEEP 5 cm H2O; RESPIRATORY RATE 16 b/min; RESPIRATORY RATE (OBSERVED) 16 b/min; TOTAL HEMOGLOBIN 8.5 G/dl (14.0-18.0)
[2017-09-21] MEDS: insulin Lispro (HumaLOG) vial - multi-dose SQ SCH ×3 (08:43→21:56)
[2017-09-21] MEDS ORDERED: GABA300C PO (09:47)
[2017-09-21] MEDS ORDERED: PANT-47 PO (09:47)
[2017-09-21] MEDS ORDERED: GLUCAGON HUMAN RECOMBINANT 1 MG IM SCH (10:45)
[2017-09-21] MEDS ORDERED: metoprolol tartrate 50mg tablet PO ONE (11:35)
[2017-09-21] MEDS: midazolam 100mg in NS 100ml 100 ML IV PRN (12:38)
[2017-09-21] MEDS: sodium chloride 0.45% 1,000 ML IV SCH (17:31)
[2017-09-21] MEDS ORDERED: mineral oil/petrolatum ophthal oint EACHEYE SCH (20:00)
[2017-09-21] MEDS: sennosides 8.6mg tablet PO SCH (21:50)
[2017-09-21] MEDS: lactobacillus rhamnosus 10,000 MMU CELLS/CAPSULE PO SCH (21:51)
[2017-09-21] MEDS: metoprolol tartrate 25mg tablet PO SCH (21:51)
[2017-09-21] MEDS: mineral oil/petrolatum ophthal oint EACHEYE SCH (21:52)
[2017-09-21] MEDS: insulin glargine (Lantus) pen - multi-dose SQ SCH (21:59)
[2017-09-22] VITALS (25 sets, daily range): BP systolic 112–148; BP diastolic 66–95
[2017-09-22] MEDS: ipratropium/albuterol 3ml nebule NEB SCH ×7 (00:15→22:34)
[2017-09-22] MEDS: piperacillin/tazo 3.375gm/50ml 50 ML IV SCH ×4 (02:35→20:28)
[2017-09-22] MEDS: mineral oil/petrolatum ophthal oint EACHEYE SCH ×4 (02:35→20:21)
[2017-09-22] MEDS: insulin Lispro (HumaLOG) vial - multi-dose SQ SCH (02:38)
[2017-09-22 03:39] LABS: BASOPHILS % (AUTO) 0 % (0-1); EOSINOPHILS # (AUTO) 0.2 X10'3 (0-0.9); EOSINOPHILS % (AUTO) 1.6 % (0-6); HEMATOCRIT 26.8 % (42.0-52.0); HEMOGLOBIN 7.7 g/dl (14.0-17.9); LYMPHOCYTES # (AUTO) 0.4 X10'3 (1.1-4.8); LYMPHOCYTES % (AUTO) 4.2 % (21-51); MEAN CORPUSCULAR HEMOGLOBIN 20.4 PG (27.0-31.0); MEAN CORPUSCULAR HGB CONC 28.8 % (33.0-36.5); MEAN CORPUSCULAR VOLUME 70.9 FL (78-98); MEAN PLATELET VOLUME 9.1 FL (7.4-10.4); MONOCYTES # (AUTO) 0.6 X10'3 (0-0.9); NEUTROPHILS # (AUTO) 8.6 X10'3 (1.8-7.7); NEUTROPHILS % (AUTO) 88.2 % (42-75); PLATELET COUNT 301 X10'3 (140-440); RED BLOOD COUNT 3.78 X10'6 (4.70-6.10); WHITE BLOOD COUNT 9.7 X10'3 (4.5-11.0)
[2017-09-22] MEDS: morphine/NS 100mg/100ml bag 100 ML IV SCH (04:00)
[2017-09-22] MEDS: midazolam 100mg in NS 100ml 100 ML IV PRN (04:00)
[2017-09-22 04:05] LABS: ALANINE AMINOTRANSFERASE 722 U/L (12-78); ALBUMIN/GLOBULIN RATIO 0.6 (1.1-1.5); ALKALINE PHOSPHATASE 50 IU/L (46-116); ANION GAP 3 (8-16); ASPARTATE AMINO TRANSFERASE 312 U/L (10-37); BILIRUBIN,TOTAL 0.5 MG/DL (0.1-1.0); BLOOD UREA NITROGEN 32 MG/DL (7-18); BUN/CREATININE RATIO 32.3 (5.4-32.0); CALCIUM 8.2 MG/DL (8.5-10.1); CHLORIDE 113 MMOL/L (99-107); CREATININE 0.99 MG/DL (0.60-1.10); GLUCOSE 150 MG/DL (70-104); MAGNESIUM 2.2 MG/DL (1.5-2.4); PHOSPHORUS 1.8 MG/DL (2.3-4.5); POTASSIUM 4.2 MMOL/L (3.5-5.1); SODIUM 152 MMOL/L (135-145); TOTAL CARBON DIOXIDE 36.5 MMOL/L (24-32); TOTAL PROTEIN 5.5 G/DL (6.4-8.2); VANCOMYCIN,TROUGH 15.3 UG/ML (6.0-14.0); eGFR 76 ML/MIN
[2017-09-22 05:01] LABS: ABG BASE EXCESS 7.8 mmol/L (-2.0-3.0); ABG OXYGEN SATURATION 97.4 % (95-98); ABG PH (T) 7.481 (7.350-7.450); ABG PO2 (T) 104.2 mmHg (83-108); ALLEN'S TEST Positive; FCOHb 0.6 % (0.5-1.5); FMetHb 0.2 % (0.3-1.12); FO2Hb 96.6 % (94-100); PATIENT TEMPERATURE 37.2; PEEP 5 cm H2O; RESPIRATORY RATE 16 b/min; RESPIRATORY RATE (OBSERVED) 16 b/min; TIDAL VOLUME 500 mL; TOTAL HEMOGLOBIN 8.7 G/dl (14.0-18.0)
[2017-09-22] MEDS: sodium chloride 0.45% 1,000 ML IV SCH ×2 (05:15→09:22)
[2017-09-22] MEDS ORDERED: VANCOMYCIN LEVEL IV ONE (05:30)
[2017-09-22] MEDS ORDERED: sodium phosphate inj. 30 MMOL in dextrose 5%-water 250 ML IV PRN (06:02)
[2017-09-22] MEDS ORDERED: sodium phosphate inj. 15 MMOL in dextrose 5%-water 150 ML IV PRN (06:02)
[2017-09-22] MEDS ORDERED: multivitamins, therapeutics tablet PO SCH (08:00)
[2017-09-22] MEDS: famotidine/PF 10 mg/ml inj IV SCH (08:23)
[2017-09-22] MEDS: heparin, porcine 5000 units/ml vial SQ SCH ×2 (08:24→20:22)
[2017-09-22] MEDS: polyethylene glycol 3350 17gm powd pack PO SCH (08:24)
[2017-09-22] MEDS: atorvastatin 20mg tablet PO SCH (08:25)
[2017-09-22] MEDS: metoprolol tartrate 25mg tablet PO SCH ×2 (08:25→20:21)
[2017-09-22] MEDS: lactobacillus rhamnosus 10,000 MMU CELLS/CAPSULE PO SCH ×2 (08:25→20:20)
[2017-09-22] MEDS: bisacodyl 10mg suppository rectal RC SCH (08:26)
[2017-09-22] MEDS ORDERED: amiodarone/D5 360MG/200ML BAG 200 ML IV SCH (19:57)
[2017-09-22] MEDS ORDERED: amiodarone 150mg/dext, iso-os 100 ML IV ONE (20:00)
[2017-09-22] MEDS: sennosides 8.6mg tablet PO SCH (20:21)
[2017-09-22] MEDS: docusate sodium 100mg/10ml UD cup PO SCH (20:29)
[2017-09-22] MEDS: amiodarone/D5 450MG/250ML BAG 250 ML IV SCH (20:44)
[2017-09-22] MEDS: insulin regular, human vial - multi-dose SQ SCH (20:54)
[2017-09-22] MEDS: insulin glargine (Lantus) pen - multi-dose SQ SCH (20:55)
[2017-09-23] VITALS (24 sets, daily range): BP systolic 99–157; BP diastolic 59–91
[2017-09-23] MEDS: piperacillin/tazo 3.375gm/50ml 50 ML IV SCH ×4 (01:39→20:43)
[2017-09-23] MEDS: mineral oil/petrolatum ophthal oint EACHEYE SCH ×4 (01:39→20:44)
[2017-09-23] MEDS: insulin regular, human vial - multi-dose SQ SCH ×4 (02:12→20:48)
[2017-09-23] MEDS: ipratropium/albuterol 3ml nebule NEB SCH ×6 (02:33→22:26)
[2017-09-23] MEDS: midazolam 100mg in NS 100ml 100 ML IV PRN (03:17)
[2017-09-23 04:16] LABS: ABG BASE EXCESS 8.7 mmol/L (-2.0-3.0); ABG HCO3 33.8 mmol/L (22.0-26.0); ABG OXYGEN SATURATION 92.3 % (95-98); ABG PH (T) 7.428 (7.350-7.450); ABG PO2 (T) 72.1 mmHg (83-108); ALLEN'S TEST Positive; FCOHb 1.1 % (0.5-1.5); FMetHb 0.2 % (0.3-1.12); FO2Hb 91.1 % (94-100); MINUTE VOLUME 10 L/min; PATIENT TEMPERATURE 38.1; PEEP 5 cm H2O; RESPIRATORY RATE 14 b/min; RESPIRATORY RATE (OBSERVED) 14 b/min; TIDAL VOLUME 600 mL; TOTAL HEMOGLOBIN 8.7 G/dl (14.0-18.0)
[2017-09-23 04:20] LABS: BASOPHILS % (AUTO) 0 % (0-1); EOSINOPHILS % (AUTO) 0 % (0-6); HEMATOCRIT 27.2 % (42.0-52.0); HEMOGLOBIN 7.9 g/dl (14.0-17.9); LYMPHOCYTES # (AUTO) 0.8 X10'3 (1.1-4.8); LYMPHOCYTES % (AUTO) 8.6 % (21-51); MEAN CORPUSCULAR HEMOGLOBIN 20.5 PG (27.0-31.0); MEAN CORPUSCULAR VOLUME 70.7 FL (78-98); MEAN PLATELET VOLUME 9.2 FL (7.4-10.4); MONOCYTES # (AUTO) 0.7 X10'3 (0-0.9); MONOCYTES % (AUTO) 7.6 % (2-12); NEUTROPHILS # (AUTO) 7.8 X10'3 (1.8-7.7); NEUTROPHILS % (AUTO) 83.8 % (42-75); PLATELET COUNT 257 X10'3 (140-440); RED BLOOD COUNT 3.85 X10'6 (4.70-6.10); RED CELL DISTRIBUTION WIDTH 23.2 % (11.5-14.5); WHITE BLOOD COUNT 9.3 X10'3 (4.5-11.0)
[2017-09-23 04:35] LABS: ALANINE AMINOTRANSFERASE 652 U/L (12-78); ALBUMIN/GLOBULIN RATIO 0.6 (1.1-1.5); ALKALINE PHOSPHATASE 50 IU/L (46-116); ANION GAP 2 (8-16); ASPARTATE AMINO TRANSFERASE 185 U/L (10-37); BILIRUBIN,TOTAL 0.7 MG/DL (0.1-1.0); BLOOD UREA NITROGEN 26 MG/DL (7-18); BUN/CREATININE RATIO 27.4 (5.4-32.0); CALCIUM 7.9 MG/DL (8.5-10.1); CHLORIDE 110 MMOL/L (99-107); CREATININE 0.95 MG/DL (0.60-1.10); GLUCOSE 164 MG/DL (70-104); MAGNESIUM 2.1 MG/DL (1.5-2.4); PHOSPHORUS 2.8 MG/DL (2.3-4.5); POTASSIUM 4.3 MMOL/L (3.5-5.1); SODIUM 148 MMOL/L (135-145); TOTAL CARBON DIOXIDE 35.9 MMOL/L (24-32); TOTAL PROTEIN 5.5 G/DL (6.4-8.2); eGFR 80 ML/MIN
[2017-09-23] MEDS: amiodarone/D5 450MG/250ML BAG 250 ML IV SCH ×2 (05:08→19:58)
[2017-09-23] MEDS: sodium chloride 0.45% 1,000 ML IV SCH ×2 (05:42→21:15)
[2017-09-23] MEDS: morphine/NS 100mg/100ml bag 100 ML IV SCH (06:26)
[2017-09-23] MEDS: bisacodyl 10mg suppository rectal RC SCH (08:00)
[2017-09-23] MEDS: polyethylene glycol 3350 17gm powd pack PO SCH (08:00)
[2017-09-23] MEDS ORDERED: famotidine 20mg tablet PO SCH (08:00)
[2017-09-23] MEDS: heparin, porcine 5000 units/ml vial SQ SCH ×2 (08:41→20:45)
[2017-09-23] MEDS: lactobacillus rhamnosus 10,000 MMU CELLS/CAPSULE PO SCH ×2 (08:42→20:44)
[2017-09-23] MEDS: metoprolol tartrate 25mg tablet PO SCH ×2 (08:43→20:43)
[2017-09-23] MEDS: atorvastatin 20mg tablet PO SCH (08:43)
[2017-09-23] MEDS: docusate sodium 100mg/10ml UD cup PO SCH ×2 (08:43→20:43)
[2017-09-23] MEDS: sennosides 8.6mg tablet PO SCH (20:43)
[2017-09-23] MEDS: famotidine/PF 10 mg/ml inj IV SCH (20:44)
[2017-09-23] MEDS: insulin glargine (Lantus) pen - multi-dose SQ SCH (20:49)
[2017-09-24] VITALS (23 sets, daily range): BP systolic 102–179; BP diastolic 59–93
[2017-09-24] MEDS: mineral oil/petrolatum ophthal oint EACHEYE SCH ×4 (02:05→19:59)
[2017-09-24] MEDS: piperacillin/tazo 3.375gm/50ml 50 ML IV SCH ×4 (02:05→19:58)
[2017-09-24] MEDS: insulin regular, human vial - multi-dose SQ SCH ×4 (02:09→20:27)
[2017-09-24] MEDS: ipratropium/albuterol 3ml nebule NEB SCH ×6 (02:33→22:25)
[2017-09-24 03:45] LABS: ABG BASE EXCESS 6.3 mmol/L (-2.0-3.0); ABG HCO3 31.3 mmol/L (22.0-26.0); ABG OXYGEN SATURATION 85.6 % (95-98); ABG PCO2 (T) 49.6 mmHg (35.0-48.0); ABG PH (T) 7.421 (7.350-7.450); ABG PO2 (T) 56.7 mmHg (83-108); ALLEN'S TEST Positive; FCOHb 0.8 % (0.5-1.5); FMetHb 0.1 % (0.3-1.12); FO2Hb 84.8 % (94-100); MINUTE VOLUME 8 L/min; PATIENT TEMPERATURE 37.8; PEEP 5 cm H2O; RESPIRATORY RATE 14 b/min; RESPIRATORY RATE (OBSERVED) 14 b/min; TIDAL VOLUME 600 mL; TOTAL HEMOGLOBIN 8.9 G/dl (14.0-18.0)
[2017-09-24] MEDS: midazolam 100mg in NS 100ml 100 ML IV PRN (04:40)
[2017-09-24] MEDS: morphine/NS 100mg/100ml bag 100 ML IV SCH (04:41)
[2017-09-24 05:49] LABS: BASOPHILS % (AUTO) 0.1 % (0-1); EOSINOPHILS # (AUTO) 0.3 X10'3 (0-0.9); EOSINOPHILS % (AUTO) 3.2 % (0-6); HEMATOCRIT 26.8 % (42.0-52.0); HEMOGLOBIN 7.9 g/dl (14.0-17.9); LYMPHOCYTES # (AUTO) 1.1 X10'3 (1.1-4.8); MEAN CORPUSCULAR HEMOGLOBIN 20.6 PG (27.0-31.0); MEAN CORPUSCULAR HGB CONC 29.6 % (33.0-36.5); MEAN CORPUSCULAR VOLUME 69.5 FL (78-98); MEAN PLATELET VOLUME 9.5 FL (7.4-10.4); MONOCYTES # (AUTO) 0.6 X10'3 (0-0.9); MONOCYTES % (AUTO) 7.4 % (2-12); NEUTROPHILS # (AUTO) 6.1 X10'3 (1.8-7.7); NEUTROPHILS % (AUTO) 75.3 % (42-75); PLATELET COUNT 232 X10'3 (140-440); RED BLOOD COUNT 3.86 X10'6 (4.70-6.10); RED CELL DISTRIBUTION WIDTH 23.6 % (11.5-14.5); WHITE BLOOD COUNT 8.1 X10'3 (4.5-11.0)
[2017-09-24 05:52] LABS: ALANINE AMINOTRANSFERASE 401 U/L (12-78); ALBUMIN 1.8 G/DL (3.4-5.0); ALBUMIN/GLOBULIN RATIO 0.5 (1.1-1.5); ALKALINE PHOSPHATASE 51 IU/L (46-116); ANION GAP 3 (8-16); ASPARTATE AMINO TRANSFERASE 63 U/L (10-37); BILIRUBIN,TOTAL 0.6 MG/DL (0.1-1.0); BLOOD UREA NITROGEN 23 MG/DL (7-18); BUN/CREATININE RATIO 29.5 (5.4-32.0); CALCIUM 8.2 MG/DL (8.5-10.1); CHLORIDE 107 MMOL/L (99-107); CREATININE 0.78 MG/DL (0.60-1.10); GLUCOSE 172 MG/DL (70-104); PHOSPHORUS 2.7 MG/DL (2.3-4.5); POTASSIUM 4.2 MMOL/L (3.5-5.1); SODIUM 146 MMOL/L (135-145); TOTAL CARBON DIOXIDE 35.8 MMOL/L (24-32); TOTAL PROTEIN 5.7 G/DL (6.4-8.2); eGFR > 90 ML/MIN
[2017-09-24] MEDS: polyethylene glycol 3350 17gm powd pack PO SCH (08:00)
[2017-09-24] MEDS: bisacodyl 10mg suppository rectal RC SCH (08:00)
[2017-09-24 08:26] LABS: ANISOCYTOSIS 3+; MICROCYTOSIS 2+; PLATELET ESTIMATE NORMAL
[2017-09-24 08:27] LABS: HYPOCHROMASIA 2+; POLYCHROMASIA FEW; ROULEAUX 1+
[2017-09-24 08:28] LABS: ELLIPTOCYTES 2+; LARGE PLATELETS FEW; STOMATOCYTES 1+
[2017-09-24 08:29] LABS: SCHISTOCYTES FEW
[2017-09-24 08:30] LABS: SPHEROCYTES FEW
[2017-09-24] MEDS: docusate sodium 100mg/10ml UD cup PO SCH ×2 (08:36→19:58)
[2017-09-24] MEDS: lactobacillus rhamnosus 10,000 MMU CELLS/CAPSULE PO SCH ×2 (08:36→19:59)
[2017-09-24] MEDS: metoprolol tartrate 25mg tablet PO SCH ×2 (08:36→19:58)
[2017-09-24] MEDS: atorvastatin 20mg tablet PO SCH (08:37)
[2017-09-24] MEDS: heparin, porcine 5000 units/ml vial SQ SCH ×2 (08:38→19:59)
[2017-09-24] MEDS: multivitamin oral liquid (Certavite) 5ml cup PO SCH (08:58)
[2017-09-24] MEDS: famotidine/PF 10 mg/ml inj IV SCH ×2 (10:42→20:00)
[2017-09-24] MEDS: amiodarone/D5 450MG/250ML BAG 250 ML IV SCH (10:46)
[2017-09-24] MEDS: sodium chloride 0.45% 1,000 ML IV SCH ×2 (15:16→23:55)
[2017-09-24] MEDS: sennosides 8.6mg tablet PO SCH (20:00)
[2017-09-24] MEDS: insulin glargine (Lantus) pen - multi-dose SQ SCH (20:12)
[2017-09-25] VITALS (23 sets, daily range): BP systolic 76–184; BP diastolic 50–117
[2017-09-25] MEDS: amiodarone/D5 450MG/250ML BAG 250 ML IV SCH ×2 (00:04→17:32)
[2017-09-25] MEDS: piperacillin/tazo 3.375gm/50ml 50 ML IV SCH ×4 (01:51→19:17)
[2017-09-25] MEDS: insulin regular, human vial - multi-dose SQ SCH ×4 (01:54→20:02)
[2017-09-25] MEDS: mineral oil/petrolatum ophthal oint EACHEYE SCH ×4 (02:00→19:18)
[2017-09-25] MEDS: ipratropium/albuterol 3ml nebule NEB SCH ×6 (02:29→23:15)
[2017-09-25 03:45] LABS: ABG BASE EXCESS 8.4 mmol/L (-2.0-3.0); ABG HCO3 33.4 mmol/L (22.0-26.0); ABG OXYGEN SATURATION 92.3 % (95-98); ABG PCO2 (T) 52.3 mmHg (35.0-48.0); ABG PH (T) 7.428 (7.350-7.450); ALLEN'S TEST Positive; FCOHb 1.5 % (0.5-1.5); FMetHb 0.1 % (0.3-1.12); FO2Hb 90.8 % (94-100); MINUTE VOLUME 9 L/min; PATIENT TEMPERATURE 38.2; PEEP 5 cm H2O; RESPIRATORY RATE 20 b/min; RESPIRATORY RATE (OBSERVED) 23 b/min; TIDAL VOLUME 400 mL; TOTAL HEMOGLOBIN 8.8 G/dl (14.0-18.0)
[2017-09-25 05:32] LABS: BASOPHILS % (AUTO) 0.1 % (0-1); EOSINOPHILS # (AUTO) 0.6 X10'3 (0-0.9); HEMATOCRIT 28.6 % (42.0-52.0); HEMOGLOBIN 8.4 g/dl (14.0-17.9); LYMPHOCYTES # (AUTO) 1.1 X10'3 (1.1-4.8); LYMPHOCYTES % (AUTO) 9.9 % (21-51); MEAN CORPUSCULAR HEMOGLOBIN 20.5 PG (27.0-31.0); MEAN CORPUSCULAR HGB CONC 29.4 % (33.0-36.5); MEAN CORPUSCULAR VOLUME 69.6 FL (78-98); MEAN PLATELET VOLUME 10.2 FL (7.4-10.4); MONOCYTES # (AUTO) 0.8 X10'3 (0-0.9); MONOCYTES % (AUTO) 7.3 % (2-12); NEUTROPHILS # (AUTO) 8.6 X10'3 (1.8-7.7); NEUTROPHILS % (AUTO) 77.7 % (42-75); PLATELET COUNT 269 X10'3 (140-440); RED CELL DISTRIBUTION WIDTH 23.7 % (11.5-14.5); WHITE BLOOD COUNT 11.1 X10'3 (4.5-11.0)
[2017-09-25 05:56] LABS: ALANINE AMINOTRANSFERASE 271 U/L (12-78); ALBUMIN 1.9 G/DL (3.4-5.0); ALBUMIN/GLOBULIN RATIO 0.5 (1.1-1.5); ALKALINE PHOSPHATASE 58 IU/L (46-116); ANION GAP 4 (8-16); ASPARTATE AMINO TRANSFERASE 34 U/L (10-37); BILIRUBIN,TOTAL 0.6 MG/DL (0.1-1.0); BLOOD UREA NITROGEN 24 MG/DL (7-18); BUN/CREATININE RATIO 31.6 (5.4-32.0); CALCIUM 7.9 MG/DL (8.5-10.1); CHLORIDE 107 MMOL/L (99-107); CREATININE 0.76 MG/DL (0.60-1.10); GLUCOSE 137 MG/DL (70-104); MAGNESIUM 1.9 MG/DL (1.5-2.4); PHOSPHORUS 2.3 MG/DL (2.3-4.5); POTASSIUM 4.1 MMOL/L (3.5-5.1); SODIUM 144 MMOL/L (135-145); TOTAL CARBON DIOXIDE 33.3 MMOL/L (24-32); eGFR > 90 ML/MIN
[2017-09-25 07:35] LABS: ANISOCYTOSIS 3+; ELLIPTOCYTES 1+; LARGE PLATELETS FEW; MICROCYTOSIS 2+; PLATELET ESTIMATE NORMAL; POLYCHROMASIA 1+; ROULEAUX 1+; SCHISTOCYTES FEW
[2017-09-25] MEDS: famotidine/PF 10 mg/ml inj IV SCH ×2 (08:00→19:23)
[2017-09-25] MEDS: polyethylene glycol 3350 17gm powd pack PO SCH (08:28)
[2017-09-25] MEDS: heparin, porcine 5000 units/ml vial SQ SCH ×2 (08:28→19:17)
[2017-09-25] MEDS: lactobacillus rhamnosus 10,000 MMU CELLS/CAPSULE PO SCH ×2 (08:29→19:17)
[2017-09-25] MEDS: metoprolol tartrate 25mg tablet PO SCH ×2 (08:29→19:17)
[2017-09-25] MEDS: docusate sodium 100mg/10ml UD cup PO SCH ×2 (08:29→19:17)
[2017-09-25] MEDS: multivitamin oral liquid (Certavite) 5ml cup PO SCH (08:29)
[2017-09-25] MEDS: bisacodyl 10mg suppository rectal RC SCH (08:29)
[2017-09-25] MEDS: atorvastatin 20mg tablet PO SCH (08:29)
[2017-09-25 12:23] LABS: CLARITY,URINE SLIGHTLY CLOUDY (Clear); COLOR,URINE YELLOW (Yellow); GLUCOSE, URINE NEGATIVE (Neg); KETONES,URINE NEGATIVE (Neg); LEUKOCYTE ESTERASE ,URINE NEGATIVE (Neg); NITRITES, URINE NEGATIVE (Neg); OCCULT BLOOD,URINE SMALL (Neg); PH,URINE 5.5 (4.8-8.0); PROTEIN,URINE NEGATIVE (Neg); UROBILINOGEN,URINE 0.2 E.U/dL (0.2-1.0)
[2017-09-25 12:24] LABS: UA COLLECTION TYPE FOLEY CATH
[2017-09-25 12:44] LABS: TRANSITIONAL EPI CELLS,URINE FEW /HPF
[2017-09-25 12:45] LABS: BACTERIA,URINE FEW /HPF (Neg); SQUAMOUS EPITHELIAL CELL,UR FEW /LPF (FEW); WBC CLUMPS,URINE FEW /HPF (NEGATIVE)
[2017-09-25 12:46] LABS: MUCUS STRANDS FEW /LPF (Neg); RENAL CELLS, URINE FEW /HPF; WBC,URINE 0-4 /HPF (0-4)
[2017-09-25] MEDS: dexmedetomidin/NS 400mcg/100ml 100 ML IV SCH ×2 (14:05→21:09)
[2017-09-25] MEDS: sodium chloride 0.45% 1,000 ML IV SCH (14:08)
[2017-09-25] MEDS ORDERED: acetaminophen 650mg rectal suppository RC PRN (17:15)
[2017-09-25] MEDS: acetaminophen 325mg tablet PO PRN (17:31)
[2017-09-25] MEDS: sennosides 8.6mg tablet PO SCH (19:23)
[2017-09-25] MEDS: insulin glargine (Lantus) pen - multi-dose SQ SCH (20:03)
[2017-09-25] MEDS: ibuprofen 100 MG/5 ML oral susp PO PRN (20:25)
[2017-09-25] MEDS: morphine/NS 100mg/100ml bag 100 ML IV SCH (20:51)
[2017-09-25] MEDS ORDERED: linezolid 600mg/300ml PREMIX 300 ML IV SCH (21:35)
[2017-09-25] MEDS ORDERED: CefTRIAXone/D5W-Rocephin 1gm 50 ML IV ONE (21:40)
[2017-09-25] MEDS: midazolam 100mg in NS 100ml 100 ML IV PRN (22:52)
[2017-09-25] MEDS ORDERED: NORepinephrine 8mg/ 250ml NS 250 ML IV ONE (23:56)
[2017-09-26] VITALS (24 sets, daily range): BP systolic 83–138; BP diastolic 40–79
[2017-09-26 00:10] LABS: ABG BASE EXCESS 7.5 mmol/L (-2.0-3.0); ABG HCO3 31.4 mmol/L (22.0-26.0); ABG OXYGEN SATURATION 91.1 % (95-98); ABG PH (T) 7.438 (7.350-7.450); ALLEN'S TEST Positive; FCOHb 1.6 % (0.5-1.5); FMetHb 0.3 % (0.3-1.12); FO2Hb 89.4 % (94-100); MINUTE VOLUME 10 L/min; PATIENT TEMPERATURE 40.7; PEEP 5 cm H2O; RESPIRATORY RATE 18 b/min; RESPIRATORY RATE (OBSERVED) 18 b/min; TIDAL VOLUME 500 mL; TOTAL HEMOGLOBIN 8.9 G/dl (14.0-18.0)
[2017-09-26] MEDS: acetaminophen 325mg tablet PO PRN ×3 (00:54→22:04)
[2017-09-26] MEDS: cefepime 1GM/NS ADD-VANTAGE 100 ML IV SCH ×2 (00:58→07:26)
[2017-09-26] MEDS: insulin regular, human vial - multi-dose SQ SCH ×4 (01:49→21:30)
[2017-09-26] MEDS: mineral oil/petrolatum ophthal oint EACHEYE SCH ×4 (01:50→21:21)
[2017-09-26] MEDS: sodium chloride 0.45% 1,000 ML IV SCH ×2 (02:35→16:20)
[2017-09-26] MEDS: ipratropium/albuterol 3ml nebule NEB SCH ×6 (02:49→23:39)
[2017-09-26] MEDS ORDERED: acetaminophen 1,000mg/100ml IV 100 ML IV ONE (03:35)
[2017-09-26] MEDS: NORepinephrine 8mg/ 250ml NS 250 ML IV SCH (04:20)
[2017-09-26] MEDS ORDERED: VANCOMYCIN LEVEL IV NR (05:30)
[2017-09-26 06:15] LABS: BASOPHILS % (AUTO) 0.1 % (0-1); EOSINOPHILS # (AUTO) 0.3 X10'3 (0-0.9); EOSINOPHILS % (AUTO) 1.9 % (0-6); HEMATOCRIT 26.2 % (42.0-52.0); HEMOGLOBIN 7.8 g/dl (14.0-17.9); LYMPHOCYTES # (AUTO) 1.6 X10'3 (1.1-4.8); LYMPHOCYTES % (AUTO) 10.2 % (21-51); MEAN CORPUSCULAR HEMOGLOBIN 20.6 PG (27.0-31.0); MEAN CORPUSCULAR HGB CONC 29.6 % (33.0-36.5); MEAN CORPUSCULAR VOLUME 69.6 FL (78-98); MEAN PLATELET VOLUME 8.9 FL (7.4-10.4); MONOCYTES # (AUTO) 1.2 X10'3 (0-0.9); MONOCYTES % (AUTO) 7.7 % (2-12); NEUTROPHILS # (AUTO) 12.6 X10'3 (1.8-7.7); NEUTROPHILS % (AUTO) 80.1 % (42-75); RED BLOOD COUNT 3.77 X10'6 (4.70-6.10); RED CELL DISTRIBUTION WIDTH 23.2 % (11.5-14.5); WHITE BLOOD COUNT 15.7 X10'3 (4.5-11.0)
[2017-09-26 06:41] LABS: ALANINE AMINOTRANSFERASE 148 U/L (12-78); ALBUMIN 1.6 G/DL (3.4-5.0); ALBUMIN/GLOBULIN RATIO 0.4 (1.1-1.5); ALKALINE PHOSPHATASE 57 IU/L (46-116); ANION GAP 5 (8-16); ASPARTATE AMINO TRANSFERASE 31 U/L (10-37); BILIRUBIN,TOTAL 0.5 MG/DL (0.1-1.0); BLOOD UREA NITROGEN 32 MG/DL (7-18); BUN/CREATININE RATIO 31.7 (5.4-32.0); CALCIUM 7.4 MG/DL (8.5-10.1); CHLORIDE 106 MMOL/L (99-107); CREATININE 1.01 MG/DL (0.60-1.10); GLUCOSE 222 MG/DL (70-104); MAGNESIUM 1.8 MG/DL (1.5-2.4); PHOSPHORUS 1.7 MG/DL (2.3-4.5); POTASSIUM 3.9 MMOL/L (3.5-5.1); SODIUM 141 MMOL/L (135-145); TOTAL CARBON DIOXIDE 30.2 MMOL/L (24-32); TOTAL PROTEIN 5.5 G/DL (6.4-8.2); VANCOMYCIN,TROUGH 11.3 UG/ML (6.0-14.0); eGFR 74 ML/MIN
[2017-09-26] MEDS: polyethylene glycol 3350 17gm powd pack PO SCH (07:26)
[2017-09-26] MEDS: ibuprofen 100 MG/5 ML oral susp PO PRN ×2 (07:28→16:20)
[2017-09-26 07:29] LABS: LARGE PLATELETS FEW; PLATELET COUNT 194 X10'3 (140-440); PLATELET ESTIMATE NORMAL
[2017-09-26] MEDS: lactobacillus rhamnosus 10,000 MMU CELLS/CAPSULE PO SCH ×2 (07:29→21:19)
[2017-09-26] MEDS: docusate sodium 100mg/10ml UD cup PO SCH ×2 (07:29→21:19)
[2017-09-26 07:30] LABS: ANISOCYTOSIS 3+; ELLIPTOCYTES 1+; HYPOCHROMASIA 1+; MICROCYTOSIS 2+; POLYCHROMASIA 1+
[2017-09-26 07:31] LABS: SPHEROCYTES FEW
[2017-09-26] MEDS: multivitamin oral liquid (Certavite) 5ml cup PO SCH (07:31)
[2017-09-26] MEDS: bisacodyl 10mg suppository rectal RC SCH (07:31)
[2017-09-26] MEDS: atorvastatin 20mg tablet PO SCH (07:32)
[2017-09-26] MEDS: metoprolol tartrate 25mg tablet PO SCH ×2 (07:33→20:00)
[2017-09-26] MEDS: heparin, porcine 5000 units/ml vial SQ SCH ×2 (07:35→21:19)
[2017-09-26] MEDS: amiodarone/D5 450MG/250ML BAG 250 ML IV SCH (07:44)
[2017-09-26] MEDS: famotidine/PF 10 mg/ml inj IV SCH ×2 (08:26→20:00)
[2017-09-26] MEDS: dexmedetomidin/NS 400mcg/100ml 100 ML IV SCH ×4 (09:42→22:57)
[2017-09-26] MEDS ORDERED: sodium phosphate inj. 15 MMOL in dextrose 5%-water 150 ML IV PRN (20:49)
[2017-09-26] MEDS ORDERED: sodium phosphate inj. 30 MMOL in dextrose 5%-water 250 ML IV PRN (20:49)
[2017-09-26] MEDS: sennosides 8.6mg tablet PO SCH (21:19)
[2017-09-26] MEDS: insulin glargine (Lantus) pen - multi-dose SQ SCH (21:29)
[2017-09-26] MEDS ORDERED: pantoprazole 40 MG vial IV ONE (22:20)
[2017-09-26] MEDS: morphine/NS 100mg/100ml bag 100 ML IV SCH (22:56)
[2017-09-27] VITALS (24 sets, daily range): BP systolic 84–131; BP diastolic 47–89
[2017-09-27] MEDS: mineral oil/petrolatum ophthal oint EACHEYE SCH ×4 (02:37→20:48)
[2017-09-27] MEDS: insulin regular, human vial - multi-dose SQ SCH ×4 (02:37→21:26)
[2017-09-27 03:05] LABS: BASOPHILS % (AUTO) 0.1 % (0-1); EOSINOPHILS # (AUTO) 0.3 X10'3 (0-0.9); HEMOGLOBIN 7.5 g/dl (14.0-17.9); LYMPHOCYTES % (AUTO) 6.2 % (21-51); MEAN CORPUSCULAR HEMOGLOBIN 20.5 PG (27.0-31.0); MEAN CORPUSCULAR HGB CONC 28.8 % (33.0-36.5); MEAN CORPUSCULAR VOLUME 71.2 FL (78-98); MEAN PLATELET VOLUME 10.9 FL (7.4-10.4); MONOCYTES # (AUTO) 1.2 X10'3 (0-0.9); MONOCYTES % (AUTO) 7.1 % (2-12); NEUTROPHILS # (AUTO) 14.1 X10'3 (1.8-7.7); NEUTROPHILS % (AUTO) 84.6 % (42-75); PLATELET COUNT 200 X10'3 (140-440); RED BLOOD COUNT 3.65 X10'6 (4.70-6.10); RED CELL DISTRIBUTION WIDTH 23.7 % (11.5-14.5); WHITE BLOOD COUNT 16.6 X10'3 (4.5-11.0)
[2017-09-27 03:21] LABS: ALANINE AMINOTRANSFERASE 113 U/L (12-78); ALBUMIN 1.5 G/DL (3.4-5.0); ALBUMIN/GLOBULIN RATIO 0.4 (1.1-1.5); ALKALINE PHOSPHATASE 50 IU/L (46-116); ANION GAP 2 (8-16); ASPARTATE AMINO TRANSFERASE 26 U/L (10-37); BILIRUBIN,TOTAL 0.5 MG/DL (0.1-1.0); BLOOD UREA NITROGEN 30 MG/DL (7-18); BUN/CREATININE RATIO 32.3 (5.4-32.0); CALCIUM 7.5 MG/DL (8.5-10.1); CHLORIDE 106 MMOL/L (99-107); CREATININE 0.93 MG/DL (0.60-1.10); GLUCOSE 216 MG/DL (70-104); MAGNESIUM 2.1 MG/DL (1.5-2.4); PHOSPHORUS 2.6 MG/DL (2.3-4.5); POTASSIUM 4.3 MMOL/L (3.5-5.1); SODIUM 141 MMOL/L (135-145); TOTAL CARBON DIOXIDE 33.1 MMOL/L (24-32); TOTAL PROTEIN 5.5 G/DL (6.4-8.2); eGFR 82 ML/MIN
[2017-09-27] MEDS: ipratropium/albuterol 3ml nebule NEB SCH ×6 (03:34→23:31)
[2017-09-27 04:26] LABS: ABG BASE EXCESS 4.1 mmol/L (-2.0-3.0); ABG HCO3 28.7 mmol/L (22.0-26.0); ABG OXYGEN SATURATION 91.5 % (95-98); ABG PCO2 (T) 47.6 mmHg (35.0-48.0); ABG PH (T) 7.406 (7.350-7.450); ABG PO2 (T) 74.4 mmHg (83-108); ALLEN'S TEST Positive; FCOHb 1.4 % (0.5-1.5); FMetHb 0.3 % (0.3-1.12); FO2Hb 89.9 % (94-100); MINUTE VOLUME 9 L/min; PEEP 5 cm H2O; RESPIRATORY RATE 18 b/min; RESPIRATORY RATE (OBSERVED) 18 b/min; TIDAL VOLUME 500 mL; TOTAL HEMOGLOBIN 8.3 G/dl (14.0-18.0)
[2017-09-27] MEDS: dexmedetomidin/NS 400mcg/100ml 100 ML IV SCH ×6 (05:17→22:48)
[2017-09-27] MEDS: ibuprofen 100 MG/5 ML oral susp PO PRN (05:24)
[2017-09-27] MEDS: sodium chloride 0.45% 1,000 ML IV SCH ×2 (05:58→17:52)
[2017-09-27] MEDS: amiodarone/D5 450MG/250ML BAG 250 ML IV SCH (06:00)
[2017-09-27 07:11] LABS: LARGE PLATELETS FEW; PLATELET ESTIMATE NORMAL; POLYCHROMASIA 2+
[2017-09-27 07:12] LABS: ANISOCYTOSIS 3+; ELLIPTOCYTES 1+; HYPOCHROMASIA 1+; MICROCYTOSIS 2+; ROULEAUX 1+; TEAR DROP CELLS FEW
[2017-09-27] MEDS: pantoprazole 40 MG vial IV SCH (07:59)
[2017-09-27] MEDS: bisacodyl 10mg suppository rectal RC SCH (08:00)
[2017-09-27] MEDS: heparin, porcine 5000 units/ml vial SQ SCH ×2 (08:00→21:10)
[2017-09-27] MEDS: multivitamin oral liquid (Certavite) 5ml cup PO SCH (08:00)
[2017-09-27] MEDS: docusate sodium 100mg/10ml UD cup PO SCH ×2 (08:00→20:48)
[2017-09-27] MEDS: polyethylene glycol 3350 17gm powd pack PO SCH (08:01)
[2017-09-27] MEDS: acetaminophen 325mg tablet PO PRN (08:01)
[2017-09-27] MEDS: lactobacillus rhamnosus 10,000 MMU CELLS/CAPSULE PO SCH ×2 (08:01→20:48)
[2017-09-27] MEDS: atorvastatin 20mg tablet PO SCH (08:01)
[2017-09-27] MEDS: metoprolol tartrate 25mg tablet PO SCH ×2 (08:02→20:00)
[2017-09-27] MEDS: amiodarone 200mg tablet PO SCH ×2 (12:19→20:47)
[2017-09-27] MEDS: sennosides 8.6mg tablet PO SCH (20:48)
[2017-09-27] MEDS: insulin glargine (Lantus) pen - multi-dose SQ SCH (21:25)
[2017-09-28] VITALS (24 sets, daily range): BP systolic 86–153; BP diastolic 47–92
[2017-09-28] MEDS: dexmedetomidin/NS 400mcg/100ml 100 ML IV SCH ×5 (00:36→20:33)
[2017-09-28] MEDS: morphine/NS 100mg/100ml bag 100 ML IV SCH (00:41)
[2017-09-28] MEDS: mineral oil/petrolatum ophthal oint EACHEYE SCH ×4 (01:54→20:31)
[2017-09-28] MEDS: insulin regular, human vial - multi-dose SQ SCH ×4 (01:56→20:44)
[2017-09-28] MEDS: ipratropium/albuterol 3ml nebule NEB SCH ×5 (03:28→23:14)
[2017-09-28 03:46] LABS: ABG BASE EXCESS 2.1 mmol/L (-2.0-3.0); ABG HCO3 27.4 mmol/L (22.0-26.0); ABG OXYGEN SATURATION 96.7 % (95-98); ABG PCO2 (T) 48.5 mmHg (35.0-48.0); ABG PH (T) 7.374 (7.350-7.450); ABG PO2 (T) 99.7 mmHg (83-108); ALLEN'S TEST Positive; FMetHb 0.1 % (0.3-1.12); FO2Hb 95.6 % (94-100); MINUTE VOLUME 11 L/min; PATIENT TEMPERATURE 37.7; PEEP 5 cm H2O; RESPIRATORY RATE 18 b/min; RESPIRATORY RATE (OBSERVED) 20 b/min; TIDAL VOLUME 500 mL; TOTAL HEMOGLOBIN 8.2 G/dl (14.0-18.0)
[2017-09-28] MEDS: NORepinephrine 8mg/ 250ml NS 250 ML IV SCH (04:20)
[2017-09-28 05:30] LABS: BASOPHILS % (AUTO) 0.1 % (0-1); EOSINOPHILS # (AUTO) 0.4 X10'3 (0-0.9); EOSINOPHILS % (AUTO) 2.3 % (0-6); HEMATOCRIT 24.4 % (42.0-52.0); HEMOGLOBIN 7.1 g/dl (14.0-17.9); LYMPHOCYTES # (AUTO) 0.9 X10'3 (1.1-4.8); LYMPHOCYTES % (AUTO) 5.3 % (21-51); MEAN CORPUSCULAR HEMOGLOBIN 20.7 PG (27.0-31.0); MEAN CORPUSCULAR HGB CONC 29.2 % (33.0-36.5); MEAN CORPUSCULAR VOLUME 70.8 FL (78-98); MEAN PLATELET VOLUME 11.2 FL (7.4-10.4); MONOCYTES % (AUTO) 5.7 % (2-12); NEUTROPHILS # (AUTO) 15.6 X10'3 (1.8-7.7); NEUTROPHILS % (AUTO) 86.6 % (42-75); PLATELET COUNT 183 X10'3 (140-440); RED BLOOD COUNT 3.45 X10'6 (4.70-6.10); RED CELL DISTRIBUTION WIDTH 23.9 % (11.5-14.5)
[2017-09-28 05:56] LABS: ALANINE AMINOTRANSFERASE 87 U/L (12-78); ALBUMIN 1.4 G/DL (3.4-5.0); ALBUMIN/GLOBULIN RATIO 0.4 (1.1-1.5); ALKALINE PHOSPHATASE 51 IU/L (46-116); ANION GAP 5 (8-16); ASPARTATE AMINO TRANSFERASE 32 U/L (10-37); BILIRUBIN,TOTAL 0.4 MG/DL (0.1-1.0); BLOOD UREA NITROGEN 39 MG/DL (7-18); BUN/CREATININE RATIO 47.6 (5.4-32.0); CALCIUM 7.8 MG/DL (8.5-10.1); CHLORIDE 101 MMOL/L (99-107); CREATININE 0.82 MG/DL (0.60-1.10); GLUCOSE 178 MG/DL (70-104); MAGNESIUM 2.3 MG/DL (1.5-2.4); PHOSPHORUS 3.1 MG/DL (2.3-4.5); POTASSIUM 4.2 MMOL/L (3.5-5.1); SODIUM 137 MMOL/L (135-145); TOTAL CARBON DIOXIDE 30.9 MMOL/L (24-32); TOTAL PROTEIN 5.4 G/DL (6.4-8.2); eGFR > 90 ML/MIN
[2017-09-28 07:15] LABS: CREATINE KINASE 259 U/L (39-308)
[2017-09-28 07:19] LABS: NUCLEATED RED BLOOD CELLS 2 /100WBC (0-0); TOTAL CELLS COUNTED 100
[2017-09-28 07:20] LABS: ANISOCYTOSIS 3+; ELLIPTOCYTES 1+; GIANT PLATELET FEW; HYPOCHROMASIA 2+; LARGE PLATELETS FEW; MICROCYTOSIS 2+; PLATELET ESTIMATE NORMAL; POLYCHROMASIA 2+
[2017-09-28 07:21] LABS: SCHISTOCYTES FEW
[2017-09-28] MEDS: sodium chloride 0.45% 1,000 ML IV SCH (07:50)
[2017-09-28] MEDS: pantoprazole 40 MG vial IV SCH (07:51)
[2017-09-28] MEDS: CefTRIAXone 2gm/D5W 50ml 50 ML IV SCH (07:54)
[2017-09-28] MEDS: amiodarone 200mg tablet PO SCH ×2 (07:58→20:32)
[2017-09-28] MEDS: multivitamin oral liquid (Certavite) 5ml cup PO SCH (07:58)
[2017-09-28] MEDS: lactobacillus rhamnosus 10,000 MMU CELLS/CAPSULE PO SCH ×2 (07:58→20:32)
[2017-09-28] MEDS: docusate sodium 100mg/10ml UD cup PO SCH ×2 (07:58→20:31)
[2017-09-28] MEDS: atorvastatin 20mg tablet PO SCH (07:58)
[2017-09-28] MEDS: metoprolol tartrate 25mg tablet PO SCH ×2 (08:00→20:32)
[2017-09-28] MEDS: polyethylene glycol 3350 17gm powd pack PO SCH (08:01)
[2017-09-28] MEDS: bisacodyl 10mg suppository rectal RC SCH (08:01)
[2017-09-28] MEDS: heparin, porcine 5000 units/ml vial SQ SCH ×2 (08:03→20:35)
[2017-09-28 10:27] LABS: BILIRUBIN,DIRECT 0.1 MG/DL (0-0.3)
[2017-09-28] MEDS ORDERED: FENTANYL-0.9 % NACL/PF 100 ML IV PRN (18:00)
[2017-09-28] MEDS: sennosides 8.6mg tablet PO SCH (20:36)
[2017-09-28] MEDS: insulin glargine (Lantus) pen - multi-dose SQ SCH (20:43)
[2017-09-29] VITALS (24 sets, daily range): BP systolic 80–172; BP diastolic 49–102
[2017-09-29] MEDS: morphine/NS 100mg/100ml bag 100 ML IV SCH ×2 (02:09→18:55)
[2017-09-29] MEDS: insulin regular, human vial - multi-dose SQ SCH ×4 (02:10→20:59)
[2017-09-29] MEDS: dexmedetomidin/NS 400mcg/100ml 100 ML IV SCH ×6 (02:11→22:39)
[2017-09-29] MEDS: mineral oil/petrolatum ophthal oint EACHEYE SCH ×4 (02:11→20:46)
[2017-09-29] MEDS: ipratropium/albuterol 3ml nebule NEB SCH ×6 (02:57→23:19)
[2017-09-29 03:21] LABS: ABG BASE EXCESS 4.3 mmol/L (-2.0-3.0); ABG HCO3 29.6 mmol/L (22.0-26.0); ABG OXYGEN SATURATION 93.6 % (95-98); ABG PH (T) 7.393 (7.350-7.450); ABG PO2 (T) 78.1 mmHg (83-108); ALLEN'S TEST Positive; FCOHb 1.1 % (0.5-1.5); FMetHb 0.1 % (0.3-1.12); FO2Hb 92.5 % (94-100); MINUTE VOLUME 11 L/min; PATIENT TEMPERATURE 37.7; PEEP 5 cm H2O; RESPIRATORY RATE 18 b/min; RESPIRATORY RATE (OBSERVED) 19 b/min; TIDAL VOLUME 500 mL; TOTAL HEMOGLOBIN 8.2 G/dl (14.0-18.0)
[2017-09-29 04:44] LABS: ALANINE AMINOTRANSFERASE 77 U/L (12-78); ALBUMIN 1.4 G/DL (3.4-5.0); ALBUMIN/GLOBULIN RATIO 0.3 (1.1-1.5); ALKALINE PHOSPHATASE 60 IU/L (46-116); ANION GAP 4 (8-16); ASPARTATE AMINO TRANSFERASE 28 U/L (10-37); BILIRUBIN,TOTAL 0.4 MG/DL (0.1-1.0); BLOOD UREA NITROGEN 43 MG/DL (7-18); BUN/CREATININE RATIO 53.8 (5.4-32.0); CHLORIDE 101 MMOL/L (99-107); GLUCOSE 217 MG/DL (70-104); MAGNESIUM 2.3 MG/DL (1.5-2.4); POTASSIUM 4.3 MMOL/L (3.5-5.1); SODIUM 135 MMOL/L (135-145); TOTAL CARBON DIOXIDE 29.9 MMOL/L (24-32); eGFR > 90 ML/MIN
[2017-09-29 04:47] LABS: BASOPHILS % (AUTO) 0.2 % (0-1); EOSINOPHILS # (AUTO) 0.3 X10'3 (0-0.9); EOSINOPHILS % (AUTO) 1.8 % (0-6); HEMATOCRIT 25.1 % (42.0-52.0); HEMOGLOBIN 7.3 g/dl (14.0-17.9); LYMPHOCYTES # (AUTO) 0.9 X10'3 (1.1-4.8); LYMPHOCYTES % (AUTO) 4.9 % (21-51); MEAN CORPUSCULAR HEMOGLOBIN 20.5 PG (27.0-31.0); MEAN CORPUSCULAR HGB CONC 28.9 % (33.0-36.5); MEAN CORPUSCULAR VOLUME 70.9 FL (78-98); MEAN PLATELET VOLUME 11.3 FL (7.4-10.4); MONOCYTES # (AUTO) 1.1 X10'3 (0-0.9); MONOCYTES % (AUTO) 6.2 % (2-12); NEUTROPHILS # (AUTO) 15.7 X10'3 (1.8-7.7); NEUTROPHILS % (AUTO) 86.9 % (42-75); PLATELET COUNT 204 X10'3 (140-440); RED BLOOD COUNT 3.54 X10'6 (4.70-6.10); RED CELL DISTRIBUTION WIDTH 23.3 % (11.5-14.5); WHITE BLOOD COUNT 18.1 X10'3 (4.5-11.0)
[2017-09-29 07:08] LABS: ANISOCYTOSIS 3+; HYPOCHROMASIA 1+; LARGE PLATELETS FEW; MICROCYTOSIS 2+; PLATELET ESTIMATE NORMAL; POLYCHROMASIA 2+
[2017-09-29 07:09] LABS: ELLIPTOCYTES 1+; POIKILOCYTOSIS 1+; TEAR DROP CELLS FEW
[2017-09-29] MEDS: multivitamin oral liquid (Certavite) 5ml cup PO SCH (07:20)
[2017-09-29] MEDS: docusate sodium 100mg/10ml UD cup PO SCH ×2 (07:20→20:00)
[2017-09-29] MEDS: pantoprazole 40 MG vial IV SCH (07:20)
[2017-09-29] MEDS: polyethylene glycol 3350 17gm powd pack PO SCH (07:20)
[2017-09-29] MEDS: heparin, porcine 5000 units/ml vial SQ SCH ×2 (07:20→20:49)
[2017-09-29] MEDS: atorvastatin 20mg tablet PO SCH (07:21)
[2017-09-29] MEDS: amiodarone 200mg tablet PO SCH ×2 (07:21→20:47)
[2017-09-29] MEDS: lactobacillus rhamnosus 10,000 MMU CELLS/CAPSULE PO SCH ×2 (07:21→20:47)
[2017-09-29] MEDS: bisacodyl 10mg suppository rectal RC SCH (07:22)
[2017-09-29] MEDS: CefTRIAXone 2gm/D5W 50ml 50 ML IV SCH (07:22)
[2017-09-29] MEDS: metoprolol tartrate 25mg tablet PO SCH ×2 (07:22→20:47)
[2017-09-29] MEDS ORDERED: [UNRECOGNIZED DRUG - REMARK] IV NR (10:00)
[2017-09-29] MEDS ORDERED: furosemide 10 MG/1 ML 10ml inj IV ONE (13:25)
[2017-09-29] MEDS ORDERED: albumin (human) 25% 100 ML IV solution IV ONE (13:25)
[2017-09-29] MEDS: sennosides 8.6mg tablet PO SCH (20:47)
[2017-09-29] MEDS: furosemide 10 MG/1 ML 10ml inj IV SCH (20:48)
[2017-09-29] MEDS: albumin (human) 25% 100 ML IV solution IV SCH (20:50)
[2017-09-29] MEDS: insulin glargine (Lantus) pen - multi-dose SQ SCH (20:58)
[2017-09-30] VITALS (24 sets, daily range): BP systolic 118–188; BP diastolic 55–102
[2017-09-30] MEDS: dexmedetomidin/NS 400mcg/100ml 100 ML IV SCH ×5 (02:11→20:34)
[2017-09-30] MEDS: mineral oil/petrolatum ophthal oint EACHEYE SCH ×4 (02:11→20:25)
[2017-09-30] MEDS: insulin regular, human vial - multi-dose SQ SCH ×4 (02:13→20:05)
[2017-09-30] MEDS: ipratropium/albuterol 3ml nebule NEB SCH ×6 (03:21→23:03)
[2017-09-30 04:13] LABS: ABG BASE EXCESS 7.5 mmol/L (-2.0-3.0); ABG HCO3 31.6 mmol/L (22.0-26.0); ABG OXYGEN SATURATION 90.5 % (95-98); ABG PCO2 (T) 44.9 mmHg (35.0-48.0); ABG PH (T) 7.469 (7.350-7.450); ABG PO2 (T) 67.4 mmHg (83-108); ALLEN'S TEST Positive; FCOHb 1.1 % (0.5-1.5); FMetHb 0.3 % (0.3-1.12); FO2Hb 89.2 % (94-100); MINUTE VOLUME 11 L/min; PATIENT TEMPERATURE 38.1; PEEP 5 cm H2O; RESPIRATORY RATE 18 b/min; RESPIRATORY RATE (OBSERVED) 20 b/min; TIDAL VOLUME 500 mL; TOTAL HEMOGLOBIN 7.8 G/dl (14.0-18.0)
[2017-09-30] MEDS: NORepinephrine 8mg/ 250ml NS 250 ML IV SCH (04:20)
[2017-09-30 05:21] LABS: BASOPHILS % (AUTO) 0 % (0-1); EOSINOPHILS # (AUTO) 0.4 X10'3 (0-0.9); EOSINOPHILS % (AUTO) 2.4 % (0-6); HEMATOCRIT 23.8 % (42.0-52.0); LYMPHOCYTES # (AUTO) 1.1 X10'3 (1.1-4.8); LYMPHOCYTES % (AUTO) 6.5 % (21-51); MEAN CORPUSCULAR HEMOGLOBIN 20.6 PG (27.0-31.0); MEAN CORPUSCULAR HGB CONC 29.2 % (33.0-36.5); MEAN CORPUSCULAR VOLUME 70.8 FL (78-98); MEAN PLATELET VOLUME 10.4 FL (7.4-10.4); MONOCYTES # (AUTO) 0.8 X10'3 (0-0.9); MONOCYTES % (AUTO) 4.9 % (2-12); NEUTROPHILS # (AUTO) 13.9 X10'3 (1.8-7.7); NEUTROPHILS % (AUTO) 86.2 % (42-75); PLATELET COUNT 222 X10'3 (140-440); RED BLOOD COUNT 3.36 X10'6 (4.70-6.10); RED CELL DISTRIBUTION WIDTH 23.5 % (11.5-14.5); WHITE BLOOD COUNT 16.1 X10'3 (4.5-11.0)
[2017-09-30 05:30] LABS: ALANINE AMINOTRANSFERASE 61 U/L (12-78); ALBUMIN 1.9 G/DL (3.4-5.0); ALBUMIN/GLOBULIN RATIO 0.5 (1.1-1.5); ALKALINE PHOSPHATASE 60 IU/L (46-116); ANION GAP 5 (8-16); ASPARTATE AMINO TRANSFERASE 25 U/L (10-37); BILIRUBIN,TOTAL 0.5 MG/DL (0.1-1.0); BLOOD UREA NITROGEN 34 MG/DL (7-18); BUN/CREATININE RATIO 49.3 (5.4-32.0); CALCIUM 8.1 MG/DL (8.5-10.1); CHLORIDE 102 MMOL/L (99-107); CREATININE 0.69 MG/DL (0.60-1.10); GLUCOSE 142 MG/DL (70-104); PHOSPHORUS 2.4 MG/DL (2.3-4.5); POTASSIUM 3.7 MMOL/L (3.5-5.1); SODIUM 139 MMOL/L (135-145); TOTAL CARBON DIOXIDE 32.5 MMOL/L (24-32); TOTAL PROTEIN 6.1 G/DL (6.4-8.2); eGFR > 90 ML/MIN
[2017-09-30] MEDS: metoprolol tartrate 25mg tablet PO SCH ×2 (07:03→19:59)
[2017-09-30] MEDS: amiodarone 200mg tablet PO SCH ×2 (07:03→19:59)
[2017-09-30] MEDS: CefTRIAXone 2gm/D5W 50ml 50 ML IV SCH (07:04)
[2017-09-30] MEDS: polyethylene glycol 3350 17gm powd pack PO SCH (07:04)
[2017-09-30] MEDS: atorvastatin 20mg tablet PO SCH (07:04)
[2017-09-30] MEDS: lactobacillus rhamnosus 10,000 MMU CELLS/CAPSULE PO SCH ×2 (07:04→19:59)
[2017-09-30] MEDS: furosemide 10 MG/1 ML 10ml inj IV SCH ×2 (07:07→20:00)
[2017-09-30] MEDS: multivitamin oral liquid (Certavite) 5ml cup PO SCH (07:07)
[2017-09-30] MEDS: pantoprazole 40 MG vial IV SCH (07:07)
[2017-09-30] MEDS: docusate sodium 100mg/10ml UD cup PO SCH ×2 (07:07→19:59)
[2017-09-30] MEDS: bisacodyl 10mg suppository rectal RC SCH (07:08)
[2017-09-30] MEDS: heparin, porcine 5000 units/ml vial SQ SCH ×2 (07:08→20:01)
[2017-09-30] MEDS: albumin (human) 25% 100 ML IV solution IV SCH (07:09)
[2017-09-30 07:48] LABS: HEMOGLOBIN 6.9 g/dl (14.0-17.9)
[2017-09-30 11:15] LABS: % IRON SATURATION 8 % (11-46); IRON 14 UG/DL (53-167); TOTAL IRON BINDING CAPACITY 184 UG/DL (259-388)
[2017-09-30] MEDS: acetaminophen 325mg tablet PO PRN (12:11)
[2017-09-30] MEDS: midazolam 100mg in NS 100ml 100 ML IV PRN (14:49)
[2017-09-30] MEDS: morphine/NS 100mg/100ml bag 100 ML IV SCH (18:11)
[2017-09-30] MEDS: sennosides 8.6mg tablet PO SCH (21:00)
[2017-09-30] MEDS: insulin glargine (Lantus) pen - multi-dose SQ SCH (22:31)
[2017-10-01] VITALS (23 sets, daily range): BP systolic 101–189; BP diastolic 50–80
[2017-10-01] MEDS: dexmedetomidin/NS 400mcg/100ml 100 ML IV SCH ×6 (00:45→22:30)
[2017-10-01] MEDS: insulin regular, human vial - multi-dose SQ SCH ×3 (02:21→20:21)
[2017-10-01] MEDS: mineral oil/petrolatum ophthal oint EACHEYE SCH ×4 (02:22→20:25)
[2017-10-01 02:37] LABS: BASOPHILS % (AUTO) 0.2 % (0-1); EOSINOPHILS # (AUTO) 0.3 X10'3 (0-0.9); EOSINOPHILS % (AUTO) 2.1 % (0-6); HEMATOCRIT 26.5 % (42.0-52.0); HEMOGLOBIN 7.9 g/dl (14.0-17.9); LYMPHOCYTES # (AUTO) 0.8 X10'3 (1.1-4.8); MEAN CORPUSCULAR HEMOGLOBIN 21.7 PG (27.0-31.0); MEAN CORPUSCULAR HGB CONC 29.8 % (33.0-36.5); MONOCYTES # (AUTO) 0.7 X10'3 (0-0.9); MONOCYTES % (AUTO) 5.1 % (2-12); NEUTROPHILS # (AUTO) 11.7 X10'3 (1.8-7.7); NEUTROPHILS % (AUTO) 86.6 % (42-75); PLATELET COUNT 232 X10'3 (140-440); RED BLOOD COUNT 3.62 X10'6 (4.70-6.10); RED CELL DISTRIBUTION WIDTH 24.8 % (11.5-14.5); WHITE BLOOD COUNT 13.6 X10'3 (4.5-11.0)
[2017-10-01 02:50] LABS: ALANINE AMINOTRANSFERASE 61 U/L (12-78); ALBUMIN 1.8 G/DL (3.4-5.0); ALBUMIN/GLOBULIN RATIO 0.5 (1.1-1.5); ALKALINE PHOSPHATASE 64 IU/L (46-116); ANION GAP 5 (8-16); ASPARTATE AMINO TRANSFERASE 32 U/L (10-37); BILIRUBIN,TOTAL 0.8 MG/DL (0.1-1.0); BLOOD UREA NITROGEN 34 MG/DL (7-18); BUN/CREATININE RATIO 54.8 (5.4-32.0); CALCIUM 8.2 MG/DL (8.5-10.1); CHLORIDE 104 MMOL/L (99-107); CREATININE 0.62 MG/DL (0.60-1.10); GLUCOSE 177 MG/DL (70-104); MAGNESIUM 1.9 MG/DL (1.5-2.4); PHOSPHORUS 2.4 MG/DL (2.3-4.5); POTASSIUM 3.5 MMOL/L (3.5-5.1); SODIUM 143 MMOL/L (135-145); TOTAL CARBON DIOXIDE 33.6 MMOL/L (24-32); TOTAL PROTEIN 5.8 G/DL (6.4-8.2); eGFR > 90 ML/MIN
[2017-10-01] MEDS: ipratropium/albuterol 3ml nebule NEB SCH ×7 (03:22→23:22)
[2017-10-01 03:50] LABS: ABG BASE EXCESS 11.2 mmol/L (-2.0-3.0); ABG OXYGEN SATURATION 94.8 % (95-98); ABG PCO2 (T) 44.1 mmHg (35.0-48.0); ABG PH (T) 7.519 (7.350-7.450); ABG PO2 (T) 79.8 mmHg (83-108); ALLEN'S TEST Positive; FCOHb 1.1 % (0.5-1.5); FMetHb 0.3 % (0.3-1.12); FO2Hb 93.5 % (94-100); MINUTE VOLUME 9 L/min; PATIENT TEMPERATURE 37.6; PEEP 5 cm H2O; RESPIRATORY RATE 18 b/min; RESPIRATORY RATE (OBSERVED) 18 b/min; TIDAL VOLUME 500 mL; TOTAL HEMOGLOBIN 8.4 G/dl (14.0-18.0)
[2017-10-01] MEDS: heparin, porcine 5000 units/ml vial SQ SCH (08:00)
[2017-10-01] MEDS: polyethylene glycol 3350 17gm powd pack PO SCH (08:00)
[2017-10-01] MEDS: bisacodyl 10mg suppository rectal RC SCH (08:00)
[2017-10-01] MEDS: furosemide 10 MG/1 ML 10ml inj IV SCH ×2 (08:58→20:25)
[2017-10-01] MEDS: pantoprazole 40 MG vial IV SCH (08:58)
[2017-10-01] MEDS: multivitamin oral liquid (Certavite) 5ml cup PO SCH (08:59)
[2017-10-01] MEDS: CefTRIAXone 2gm/D5W 50ml 50 ML IV SCH (08:59)
[2017-10-01] MEDS: atorvastatin 20mg tablet PO SCH (08:59)
[2017-10-01] MEDS: lactobacillus rhamnosus 10,000 MMU CELLS/CAPSULE PO SCH ×2 (08:59→20:16)
[2017-10-01] MEDS: amiodarone 200mg tablet PO SCH ×2 (08:59→20:17)
[2017-10-01] MEDS: docusate sodium 100mg/10ml UD cup PO SCH ×2 (08:59→21:52)
[2017-10-01] MEDS: metoprolol tartrate 25mg tablet PO SCH ×2 (09:00→20:16)
[2017-10-01] MEDS: enoxaparin 80mg/0.8ml syringe SUBCUT SCH ×2 (12:40→20:17)
[2017-10-01] MEDS: acetaminophen 325mg tablet PO PRN (18:41)
[2017-10-01] MEDS: midazolam 100mg in NS 100ml 100 ML IV PRN (18:46)
[2017-10-01] MEDS: insulin glargine (Lantus) pen - multi-dose SQ SCH (20:23)
[2017-10-01] MEDS: sennosides 8.6mg tablet PO SCH (21:51)
[2017-10-01] MEDS: ibuprofen 100 MG/5 ML oral susp PO PRN (21:52)
[2017-10-02] VITALS (24 sets, daily range): BP systolic 128–170; BP diastolic 59–89
[2017-10-02] MEDS: insulin regular, human vial - multi-dose SQ SCH ×4 (01:55→20:50)
[2017-10-02] MEDS: mineral oil/petrolatum ophthal oint EACHEYE SCH ×4 (01:59→20:46)
[2017-10-02] MEDS: NORepinephrine 8mg/ 250ml NS 250 ML IV SCH (03:11)
[2017-10-02] MEDS: dexmedetomidin/NS 400mcg/100ml 100 ML IV SCH ×5 (03:11→23:16)
[2017-10-02] MEDS: ipratropium/albuterol 3ml nebule NEB SCH ×6 (03:34→23:14)
[2017-10-02 04:17] LABS: BASOPHILS % (AUTO) 0 % (0-1); EOSINOPHILS # (AUTO) 0.3 X10'3 (0-0.9); EOSINOPHILS % (AUTO) 2.2 % (0-6); HEMATOCRIT 26.2 % (42.0-52.0); HEMOGLOBIN 7.8 g/dl (14.0-17.9); LYMPHOCYTES # (AUTO) 1.1 X10'3 (1.1-4.8); LYMPHOCYTES % (AUTO) 9.7 % (21-51); MEAN CORPUSCULAR HEMOGLOBIN 21.5 PG (27.0-31.0); MEAN CORPUSCULAR HGB CONC 29.7 % (33.0-36.5); MEAN CORPUSCULAR VOLUME 72.2 FL (78-98); MEAN PLATELET VOLUME 9.4 FL (7.4-10.4); MONOCYTES # (AUTO) 0.7 X10'3 (0-0.9); MONOCYTES % (AUTO) 5.8 % (2-12); NEUTROPHILS # (AUTO) 9.4 X10'3 (1.8-7.7); NEUTROPHILS % (AUTO) 82.3 % (42-75); PLATELET COUNT 263 X10'3 (140-440); RED BLOOD COUNT 3.63 X10'6 (4.70-6.10); RED CELL DISTRIBUTION WIDTH 25.9 % (11.5-14.5); WHITE BLOOD COUNT 11.4 X10'3 (4.5-11.0)
[2017-10-02 04:25] LABS: ABG BASE EXCESS 9.8 mmol/L (-2.0-3.0); ABG HCO3 33.3 mmol/L (22.0-26.0); ABG OXYGEN SATURATION 97.3 % (95-98); ABG PCO2 (T) 42.6 mmHg (35.0-48.0); ABG PH (T) 7.514 (7.350-7.450); ABG PO2 (T) 101.4 mmHg (83-108); ALLEN'S TEST Positive; FCOHb 1.2 % (0.5-1.5); FMetHb 0.3 % (0.3-1.12); FO2Hb 95.8 % (94-100); MINUTE VOLUME 9 L/min; PATIENT TEMPERATURE 37.9; PEEP 5 cm H2O; RESPIRATORY RATE 16 b/min; RESPIRATORY RATE (OBSERVED) 17 b/min; TIDAL VOLUME 500 mL; TOTAL HEMOGLOBIN 8.5 G/dl (14.0-18.0)
[2017-10-02 04:50] LABS: ALANINE AMINOTRANSFERASE 77 U/L (12-78); ALBUMIN 1.7 G/DL (3.4-5.0); ALBUMIN/GLOBULIN RATIO 0.4 (1.1-1.5); ALKALINE PHOSPHATASE 85 IU/L (46-116); ANION GAP 5 (8-16); ASPARTATE AMINO TRANSFERASE 45 U/L (10-37); BILIRUBIN,TOTAL 0.7 MG/DL (0.1-1.0); BLOOD UREA NITROGEN 34 MG/DL (7-18); BUN/CREATININE RATIO 49.3 (5.4-32.0); CALCIUM 8.1 MG/DL (8.5-10.1); CHLORIDE 104 MMOL/L (99-107); CREATININE 0.69 MG/DL (0.60-1.10); GLUCOSE 142 MG/DL (70-104); PHOSPHORUS 2.6 MG/DL (2.3-4.5); POTASSIUM 3.3 MMOL/L (3.5-5.1); SODIUM 143 MMOL/L (135-145); TOTAL CARBON DIOXIDE 34.4 MMOL/L (24-32); TOTAL PROTEIN 5.8 G/DL (6.4-8.2); eGFR > 90 ML/MIN
[2017-10-02 05:13] LABS: PLATELET ESTIMATE NORMAL
[2017-10-02 05:14] LABS: ANISOCYTOSIS 3+; ELLIPTOCYTES 2+; HYPOCHROMASIA 1+; POLYCHROMASIA FEW
[2017-10-02] MEDS: morphine/NS 100mg/100ml bag 100 ML IV SCH (08:15)
[2017-10-02] MEDS: pantoprazole 40 MG vial IV SCH (08:56)
[2017-10-02] MEDS: amiodarone 200mg tablet PO SCH ×2 (08:57→20:40)
[2017-10-02] MEDS: lactobacillus rhamnosus 10,000 MMU CELLS/CAPSULE PO SCH ×2 (08:57→20:40)
[2017-10-02] MEDS: metoprolol tartrate 25mg tablet PO SCH ×2 (08:57→20:40)
[2017-10-02] MEDS: furosemide 10 MG/1 ML 10ml inj IV SCH (08:57)
[2017-10-02] MEDS: docusate sodium 100mg/10ml UD cup PO SCH ×2 (08:58→20:39)
[2017-10-02] MEDS: polyethylene glycol 3350 17gm powd pack PO SCH (08:58)
[2017-10-02] MEDS: multivitamin oral liquid (Certavite) 5ml cup PO SCH (08:58)
[2017-10-02] MEDS: potassium Cl 20 mEq SR tablet PO PRN ×2 (08:58→13:12)
[2017-10-02] MEDS: atorvastatin 20mg tablet PO SCH (08:58)
[2017-10-02] MEDS: bisacodyl 10mg suppository rectal RC SCH (08:58)
[2017-10-02] MEDS: enoxaparin 80mg/0.8ml syringe SUBCUT SCH ×2 (09:00→20:46)
[2017-10-02] MEDS: acetaZOLAMIDE IV 500mg inj IV SCH ×2 (16:00→20:38)
[2017-10-02 17:11] LABS: 5-HIAA, URINE 2.5 mg/L (Undefined)
[2017-10-02] MEDS: sennosides 8.6mg tablet PO SCH (20:40)
[2017-10-02] MEDS: insulin glargine (Lantus) pen - multi-dose SQ SCH (20:52)
[2017-10-02] MEDS: acetaminophen 325mg/10.15ml oral unit dose solution PO PRN (22:15)
[2017-10-03] VITALS (24 sets, daily range): BP systolic 139–189; BP diastolic 67–104
[2017-10-03] MEDS: mineral oil/petrolatum ophthal oint EACHEYE SCH ×4 (02:38→21:07)
[2017-10-03] MEDS: insulin regular, human vial - multi-dose SQ SCH ×3 (02:41→21:26)
[2017-10-03] MEDS: dexmedetomidin/NS 400mcg/100ml 100 ML IV SCH ×9 (03:07→23:28)
[2017-10-03] MEDS: ibuprofen 100 MG/5 ML oral susp PO PRN ×2 (03:10→09:14)
[2017-10-03] MEDS: ipratropium/albuterol 3ml nebule NEB SCH ×6 (03:41→23:11)
[2017-10-03 04:01] LABS: ABG BASE EXCESS 7.9 mmol/L (-2.0-3.0); ABG HCO3 31.2 mmol/L (22.0-26.0); ABG OXYGEN SATURATION 96.9 % (95-98); ABG PCO2 (T) 40.6 mmHg (35.0-48.0); ABG PH (T) 7.509 (7.350-7.450); ABG PO2 (T) 102.8 mmHg (83-108); ALLEN'S TEST Positive; FMetHb 0.3 % (0.3-1.12); FO2Hb 95.6 % (94-100); MINUTE VOLUME 9 L/min; PATIENT TEMPERATURE 38.5; PEEP 5 cm H2O; RESPIRATORY RATE 14 b/min; RESPIRATORY RATE (OBSERVED) 20 b/min; TOTAL HEMOGLOBIN 8.9 G/dl (14.0-18.0)
[2017-10-03 04:22] LABS: BASOPHILS % (AUTO) 0.2 % (0-1); EOSINOPHILS # (AUTO) 0.2 X10'3 (0-0.9); EOSINOPHILS % (AUTO) 2.3 % (0-6); HEMATOCRIT 26.8 % (42.0-52.0); HEMOGLOBIN 7.9 g/dl (14.0-17.9); LYMPHOCYTES # (AUTO) 0.6 X10'3 (1.1-4.8); LYMPHOCYTES % (AUTO) 6.3 % (21-51); MEAN CORPUSCULAR HEMOGLOBIN 21.3 PG (27.0-31.0); MEAN CORPUSCULAR HGB CONC 29.4 % (33.0-36.5); MEAN CORPUSCULAR VOLUME 72.4 FL (78-98); MEAN PLATELET VOLUME 9.4 FL (7.4-10.4); MONOCYTES # (AUTO) 0.7 X10'3 (0-0.9); MONOCYTES % (AUTO) 6.6 % (2-12); NEUTROPHILS # (AUTO) 8.4 X10'3 (1.8-7.7); NEUTROPHILS % (AUTO) 84.6 % (42-75); PLATELET COUNT 286 X10'3 (140-440); RED CELL DISTRIBUTION WIDTH 25.3 % (11.5-14.5); WHITE BLOOD COUNT 9.9 X10'3 (4.5-11.0)
[2017-10-03 04:34] LABS: ALANINE AMINOTRANSFERASE 81 U/L (12-78); ALBUMIN 1.8 G/DL (3.4-5.0); ALBUMIN/GLOBULIN RATIO 0.4 (1.1-1.5); ALKALINE PHOSPHATASE 87 IU/L (46-116); ANION GAP 6 (8-16); ASPARTATE AMINO TRANSFERASE 44 U/L (10-37); BILIRUBIN,TOTAL 0.8 MG/DL (0.1-1.0); BLOOD UREA NITROGEN 31 MG/DL (7-18); CALCIUM 8.6 MG/DL (8.5-10.1); CHLORIDE 105 MMOL/L (99-107); CREATININE 0.66 MG/DL (0.60-1.10); GLUCOSE 179 MG/DL (70-104); MAGNESIUM 1.9 MG/DL (1.5-2.4); PHOSPHORUS 2.7 MG/DL (2.3-4.5); POTASSIUM 3.4 MMOL/L (3.5-5.1); SODIUM 144 MMOL/L (135-145); TOTAL CARBON DIOXIDE 32.9 MMOL/L (24-32); eGFR > 90 ML/MIN
[2017-10-03 05:09] LABS: ANISOCYTOSIS 3+; PLATELET ESTIMATE NORMAL
[2017-10-03 05:11] LABS: ELLIPTOCYTES 2+; HYPOCHROMASIA 1+; POLYCHROMASIA 1+
[2017-10-03] MEDS: acetaminophen 325mg/10.15ml oral unit dose solution PO PRN (05:37)
[2017-10-03] MEDS: enoxaparin 80mg/0.8ml syringe SUBCUT SCH ×2 (08:00→21:09)
[2017-10-03] MEDS: polyethylene glycol 3350 17gm powd pack PO SCH (09:14)
[2017-10-03] MEDS: metoprolol tartrate 25mg tablet PO SCH ×2 (09:15→21:07)
[2017-10-03] MEDS: multivitamin oral liquid (Certavite) 5ml cup PO SCH (09:15)
[2017-10-03] MEDS: docusate sodium 100mg/10ml UD cup PO SCH ×2 (09:15→21:09)
[2017-10-03] MEDS: amiodarone 200mg tablet PO SCH ×2 (09:16→21:09)
[2017-10-03] MEDS: atorvastatin 20mg tablet PO SCH (09:16)
[2017-10-03] MEDS: lactobacillus rhamnosus 10,000 MMU CELLS/CAPSULE PO SCH ×2 (09:16→21:07)
[2017-10-03] MEDS: pantoprazole 40 MG vial IV SCH (09:17)
[2017-10-03] MEDS: bisacodyl 10mg suppository rectal RC SCH (09:19)
[2017-10-03] MEDS: acetaZOLAMIDE IV 500mg inj IV SCH ×2 (09:40→22:01)
[2017-10-03] MEDS: midazolam 100mg in NS 100ml 100 ML IV PRN (13:01)
[2017-10-03] MEDS: diatr meglu/diatrizoate 30ml oral sol.-(3 dose) bottle PO SCH ×9 (14:21→23:00)
[2017-10-03 14:40] LABS: HIV ANTIBODY 1&2 RAPID NON-REACTIVE (Neg)
[2017-10-03] MEDS ORDERED: dexmedetomidin/NS 400mcg/100ml 100 ML IV SCH (18:24)
[2017-10-03] MEDS ORDERED: sodium chloride inj. 154 MEQ in Dextrose 10%-water IV solution 961.5 ML IV SCH (18:25)
[2017-10-03] MEDS ORDERED: Dextrose 10%-water IV solution 1,000 ML IV ONE (19:00)
[2017-10-03] MEDS ORDERED: iohexol 300mg/ml 100ml inj. ONE (19:12)
[2017-10-03] MEDS: MESSAGE TO NURSING PO SCH (20:00)
[2017-10-03] MEDS: sennosides 8.6mg tablet PO SCH (21:07)
[2017-10-03] MEDS: insulin glargine (Lantus) pen - multi-dose SQ SCH (21:36)
[2017-10-04] VITALS (23 sets, daily range): BP systolic 132–177; BP diastolic 67–90
[2017-10-04] MEDS: dexmedetomidin/NS 400mcg/100ml 100 ML IV SCH ×10 (01:24→22:28)
[2017-10-04] MEDS: mineral oil/petrolatum ophthal oint EACHEYE SCH ×4 (01:24→20:09)
[2017-10-04] MEDS: insulin regular, human vial - multi-dose SQ SCH ×4 (02:19→20:22)
[2017-10-04] MEDS: ipratropium/albuterol 3ml nebule NEB SCH ×6 (03:06→23:15)
[2017-10-04 03:13] LABS: BASOPHILS % (AUTO) 0.3 % (0-1); EOSINOPHILS # (AUTO) 0.1 X10'3 (0-0.9); EOSINOPHILS % (AUTO) 0.8 % (0-6); HEMATOCRIT 26.9 % (42.0-52.0); HEMOGLOBIN 7.8 g/dl (14.0-17.9); LYMPHOCYTES # (AUTO) 1.1 X10'3 (1.1-4.8); LYMPHOCYTES % (AUTO) 11.1 % (21-51); MEAN CORPUSCULAR HEMOGLOBIN 21.1 PG (27.0-31.0); MEAN CORPUSCULAR VOLUME 72.9 FL (78-98); MEAN PLATELET VOLUME 9.5 FL (7.4-10.4); MONOCYTES # (AUTO) 0.6 X10'3 (0-0.9); MONOCYTES % (AUTO) 5.8 % (2-12); NEUTROPHILS # (AUTO) 8.1 X10'3 (1.8-7.7); PLATELET COUNT 323 X10'3 (140-440); RED BLOOD COUNT 3.69 X10'6 (4.70-6.10); RED CELL DISTRIBUTION WIDTH 24.5 % (11.5-14.5); WHITE BLOOD COUNT 9.9 X10'3 (4.5-11.0)
[2017-10-04 03:22] LABS: ALANINE AMINOTRANSFERASE 78 U/L (12-78); ALBUMIN 1.7 G/DL (3.4-5.0); ALBUMIN/GLOBULIN RATIO 0.4 (1.1-1.5); ALKALINE PHOSPHATASE 74 IU/L (46-116); ANION GAP 7 (8-16); ASPARTATE AMINO TRANSFERASE 41 U/L (10-37); BILIRUBIN,TOTAL 0.8 MG/DL (0.1-1.0); BLOOD UREA NITROGEN 29 MG/DL (7-18); BUN/CREATININE RATIO 41.4 (5.4-32.0); CALCIUM 8.3 MG/DL (8.5-10.1); CHLORIDE 105 MMOL/L (99-107); GLUCOSE 124 MG/DL (70-104); PHOSPHORUS 3.2 MG/DL (2.3-4.5); POTASSIUM 3.5 MMOL/L (3.5-5.1); SODIUM 140 MMOL/L (135-145); TOTAL CARBON DIOXIDE 28.5 MMOL/L (24-32); TOTAL PROTEIN 5.9 G/DL (6.4-8.2); eGFR > 90 ML/MIN
[2017-10-04 03:26] LABS: ABG BASE EXCESS 4.8 mmol/L (-2.0-3.0); ABG HCO3 27.9 mmol/L (22.0-26.0); ABG OXYGEN SATURATION 95.4 % (95-98); ABG PCO2 (T) 38.2 mmHg (35.0-48.0); ABG PH (T) 7.488 (7.350-7.450); ABG PO2 (T) 91.1 mmHg (83-108); ALLEN'S TEST Positive; FCOHb 1.1 % (0.5-1.5); FMetHb 0.3 % (0.3-1.12); FO2Hb 94.1 % (94-100); MINUTE VOLUME 10 L/min; PATIENT TEMPERATURE 38.7; PEEP 5 cm H2O; RESPIRATORY RATE 14 b/min; RESPIRATORY RATE (OBSERVED) 22 b/min; TOTAL HEMOGLOBIN 8.8 G/dl (14.0-18.0)
[2017-10-04] MEDS: acetaminophen 325mg tablet PO PRN (04:12)
[2017-10-04] MEDS: NORepinephrine 8mg/ 250ml NS 250 ML IV SCH (04:20)
[2017-10-04] MEDS: docusate sodium 100mg/10ml UD cup PO SCH ×2 (07:50→20:10)
[2017-10-04] MEDS: multivitamin oral liquid (Certavite) 5ml cup PO SCH (07:51)
[2017-10-04] MEDS: polyethylene glycol 3350 17gm powd pack PO SCH (07:51)
[2017-10-04] MEDS: atorvastatin 20mg tablet PO SCH (07:52)
[2017-10-04] MEDS: lactobacillus rhamnosus 10,000 MMU CELLS/CAPSULE PO SCH ×2 (07:52→20:10)
[2017-10-04] MEDS: amiodarone 200mg tablet PO SCH ×2 (07:52→20:10)
[2017-10-04] MEDS: bisacodyl 10mg suppository rectal RC SCH (07:52)
[2017-10-04] MEDS: metoprolol tartrate 25mg tablet PO SCH ×2 (07:53→20:11)
[2017-10-04] MEDS: pantoprazole 40 MG vial IV SCH (07:54)
[2017-10-04] MEDS: enoxaparin 80mg/0.8ml syringe SUBCUT SCH ×2 (08:00→20:12)
[2017-10-04] MEDS: acetaZOLAMIDE IV 500mg inj IV SCH ×2 (10:41→20:14)
[2017-10-04] MEDS: midazolam 100mg in NS 100ml 100 ML IV PRN (17:26)
[2017-10-04] MEDS: MESSAGE TO NURSING PO SCH (20:00)
[2017-10-04] MEDS: sennosides 8.6mg tablet PO SCH (20:11)
[2017-10-04] MEDS: acetaminophen 325mg/10.15ml oral unit dose solution PO PRN (20:18)
[2017-10-04] MEDS: insulin glargine (Lantus) pen - multi-dose SQ SCH (20:24)
[2017-10-05] VITALS (23 sets, daily range): BP systolic 115–174; BP diastolic 59–86
[2017-10-05] MEDS ORDERED: tPA-cathflo 2 MG/2 ml IV flush IVF ONE ×2 (00:50→08:00)
[2017-10-05] MEDS: dexmedetomidin/NS 400mcg/100ml 100 ML IV SCH ×10 (00:55→21:02)
[2017-10-05] MEDS ORDERED: tPA-cathflo 2 MG/2 ml IV flush ONE (01:36)
[2017-10-05] MEDS: mineral oil/petrolatum ophthal oint EACHEYE SCH ×4 (02:43→21:02)
[2017-10-05] MEDS: insulin regular, human vial - multi-dose SQ SCH ×4 (02:47→21:04)
[2017-10-05] MEDS: ipratropium/albuterol 3ml nebule NEB SCH ×6 (03:52→23:04)
[2017-10-05 04:11] LABS: ABG BASE EXCESS 1.8 mmol/L (-2.0-3.0); ABG OXYGEN SATURATION 96.6 % (95-98); ABG PCO2 (T) 34.8 mmHg (35.0-48.0); ABG PH (T) 7.478 (7.350-7.450); ABG PO2 (T) 95.8 mmHg (83-108); ALLEN'S TEST Positive; FCOHb 1.1 % (0.5-1.5); FMetHb 0.3 % (0.3-1.12); FO2Hb 95.2 % (94-100); MINUTE VOLUME 9 L/min; PATIENT TEMPERATURE 37.8; PEEP 5 cm H2O; RESPIRATORY RATE 14 b/min; RESPIRATORY RATE (OBSERVED) 17 b/min
[2017-10-05 04:19] LABS: BASOPHILS % (AUTO) 0.3 % (0-1); EOSINOPHILS # (AUTO) 0.2 X10'3 (0-0.9); EOSINOPHILS % (AUTO) 2.1 % (0-6); HEMATOCRIT 27.2 % (42.0-52.0); LYMPHOCYTES # (AUTO) 1.1 X10'3 (1.1-4.8); LYMPHOCYTES % (AUTO) 10.9 % (21-51); MEAN CORPUSCULAR HEMOGLOBIN 21.5 PG (27.0-31.0); MEAN CORPUSCULAR HGB CONC 29.3 % (33.0-36.5); MEAN CORPUSCULAR VOLUME 73.4 FL (78-98); MEAN PLATELET VOLUME 9.4 FL (7.4-10.4); MONOCYTES # (AUTO) 0.5 X10'3 (0-0.9); MONOCYTES % (AUTO) 5.2 % (2-12); NEUTROPHILS # (AUTO) 8.4 X10'3 (1.8-7.7); NEUTROPHILS % (AUTO) 81.5 % (42-75); PLATELET COUNT 363 X10'3 (140-440); RED BLOOD COUNT 3.71 X10'6 (4.70-6.10); RED CELL DISTRIBUTION WIDTH 25.4 % (11.5-14.5); WHITE BLOOD COUNT 10.3 X10'3 (4.5-11.0)
[2017-10-05 04:28] LABS: ALANINE AMINOTRANSFERASE 92 U/L (12-78); ALBUMIN 1.7 G/DL (3.4-5.0); ALBUMIN/GLOBULIN RATIO 0.4 (1.1-1.5); ALKALINE PHOSPHATASE 81 IU/L (46-116); ANION GAP 6 (8-16); ASPARTATE AMINO TRANSFERASE 40 U/L (10-37); BILIRUBIN,TOTAL 0.6 MG/DL (0.1-1.0); BLOOD UREA NITROGEN 34 MG/DL (7-18); BUN/CREATININE RATIO 47.2 (5.4-32.0); CALCIUM 8.3 MG/DL (8.5-10.1); CHLORIDE 107 MMOL/L (99-107); CREATININE 0.72 MG/DL (0.60-1.10); GLUCOSE 162 MG/DL (70-104); PHOSPHORUS 3.1 MG/DL (2.3-4.5); POTASSIUM 3.9 MMOL/L (3.5-5.1); SODIUM 139 MMOL/L (135-145); TOTAL CARBON DIOXIDE 26.1 MMOL/L (24-32); TOTAL PROTEIN 5.9 G/DL (6.4-8.2); eGFR > 90 ML/MIN
[2017-10-05] MEDS: docusate sodium 100mg/10ml UD cup PO SCH ×2 (08:00→20:00)
[2017-10-05] MEDS: polyethylene glycol 3350 17gm powd pack PO SCH (08:00)
[2017-10-05] MEDS: bisacodyl 10mg suppository rectal RC SCH (08:00)
[2017-10-05] MEDS: multivitamin oral liquid (Certavite) 5ml cup PO SCH (08:51)
[2017-10-05] MEDS: pantoprazole 40 MG vial IV SCH (08:51)
[2017-10-05] MEDS: atorvastatin 20mg tablet PO SCH (08:52)
[2017-10-05] MEDS: metoprolol tartrate 25mg tablet PO SCH ×2 (08:55→21:00)
[2017-10-05] MEDS: amiodarone 200mg tablet PO SCH ×2 (08:55→20:00)
[2017-10-05] MEDS: lactobacillus rhamnosus 10,000 MMU CELLS/CAPSULE PO SCH ×2 (08:55→21:01)
[2017-10-05] MEDS: enoxaparin 80mg/0.8ml syringe SUBCUT SCH ×2 (08:59→21:02)
[2017-10-05] MEDS: acetaZOLAMIDE IV 500mg inj IV SCH ×2 (09:11→21:03)
[2017-10-05] MEDS: midazolam 100mg in NS 100ml 100 ML IV PRN (17:41)
[2017-10-05] MEDS: sennosides 8.6mg tablet PO SCH (21:00)
[2017-10-05] MEDS: insulin glargine (Lantus) pen - multi-dose SQ SCH (21:06)
[2017-10-06] VITALS (24 sets, daily range): BP systolic 133–173; BP diastolic 60–88
[2017-10-06] MEDS: dexmedetomidin/NS 400mcg/100ml 100 ML IV SCH ×11 (00:30→22:00)
[2017-10-06 01:21] LABS: OCCULT BLOOD STOOL NEGATIVE (Neg)
[2017-10-06] MEDS: mineral oil/petrolatum ophthal oint EACHEYE SCH ×4 (02:01→20:35)
[2017-10-06] MEDS: insulin regular, human vial - multi-dose SQ SCH ×4 (02:42→21:08)
[2017-10-06 02:54] LABS: BASOPHILS % (AUTO) 0.3 % (0-1); EOSINOPHILS # (AUTO) 0.3 X10'3 (0-0.9); EOSINOPHILS % (AUTO) 2.6 % (0-6); HEMATOCRIT 26.7 % (42.0-52.0); HEMOGLOBIN 7.9 g/dl (14.0-17.9); LYMPHOCYTES # (AUTO) 0.8 X10'3 (1.1-4.8); LYMPHOCYTES % (AUTO) 7.8 % (21-51); MEAN CORPUSCULAR HEMOGLOBIN 21.5 PG (27.0-31.0); MEAN CORPUSCULAR HGB CONC 29.5 % (33.0-36.5); MEAN CORPUSCULAR VOLUME 73.1 FL (78-98); MONOCYTES # (AUTO) 0.6 X10'3 (0-0.9); MONOCYTES % (AUTO) 5.7 % (2-12); NEUTROPHILS # (AUTO) 8.4 X10'3 (1.8-7.7); NEUTROPHILS % (AUTO) 83.6 % (42-75); PLATELET COUNT 381 X10'3 (140-440); RED BLOOD COUNT 3.65 X10'6 (4.70-6.10); RED CELL DISTRIBUTION WIDTH 25.3 % (11.5-14.5)
[2017-10-06 03:11] LABS: ALANINE AMINOTRANSFERASE 91 U/L (12-78); ALBUMIN 1.6 G/DL (3.4-5.0); ALBUMIN/GLOBULIN RATIO 0.4 (1.1-1.5); ALKALINE PHOSPHATASE 76 IU/L (46-116); ANION GAP 5 (8-16); ASPARTATE AMINO TRANSFERASE 46 U/L (10-37); BILIRUBIN,TOTAL 0.5 MG/DL (0.1-1.0); BLOOD UREA NITROGEN 31 MG/DL (7-18); BUN/CREATININE RATIO 49.2 (5.4-32.0); CALCIUM 7.9 MG/DL (8.5-10.1); CHLORIDE 107 MMOL/L (99-107); CREATININE 0.63 MG/DL (0.60-1.10); GLUCOSE 160 MG/DL (70-104); MAGNESIUM 1.9 MG/DL (1.5-2.4); PHOSPHORUS 2.6 MG/DL (2.3-4.5); POTASSIUM 3.8 MMOL/L (3.5-5.1); SODIUM 140 MMOL/L (135-145); TOTAL CARBON DIOXIDE 27.6 MMOL/L (24-32); TOTAL PROTEIN 5.7 G/DL (6.4-8.2); eGFR > 90 ML/MIN
[2017-10-06] MEDS: ipratropium/albuterol 3ml nebule NEB SCH ×6 (03:27→22:41)
[2017-10-06 03:46] LABS: ABG HCO3 25.6 mmol/L (22.0-26.0); ABG OXYGEN SATURATION 96.5 % (95-98); ABG PCO2 (T) 37.9 mmHg (35.0-48.0); ABG PH (T) 7.453 (7.350-7.450); ABG PO2 (T) 96.8 mmHg (83-108); ALLEN'S TEST Positive; FCOHb 0.9 % (0.5-1.5); FMetHb 0.3 % (0.3-1.12); FO2Hb 95.3 % (94-100); MINUTE VOLUME 13 L/min; PATIENT TEMPERATURE 38.3; PEEP 5 cm H2O; RESPIRATORY RATE 14 b/min; RESPIRATORY RATE (OBSERVED) 18 b/min; TOTAL HEMOGLOBIN 8.9 G/dl (14.0-18.0)
[2017-10-06] MEDS: NORepinephrine 8mg/ 250ml NS 250 ML IV SCH (04:20)
[2017-10-06] MEDS: metoprolol tartrate 25mg tablet PO SCH ×2 (07:32→20:36)
[2017-10-06] MEDS: amiodarone 200mg tablet PO SCH ×2 (07:32→20:36)
[2017-10-06] MEDS: lactobacillus rhamnosus 10,000 MMU CELLS/CAPSULE PO SCH ×2 (07:32→20:36)
[2017-10-06] MEDS: atorvastatin 20mg tablet PO SCH (07:32)
[2017-10-06] MEDS: multivitamin oral liquid (Certavite) 5ml cup PO SCH (07:32)
[2017-10-06] MEDS: enoxaparin 80mg/0.8ml syringe SUBCUT SCH ×2 (07:33→20:00)
[2017-10-06] MEDS: pantoprazole 40 MG vial IV SCH (07:33)
[2017-10-06] MEDS: bisacodyl 10mg suppository rectal RC SCH (08:00)
[2017-10-06] MEDS: polyethylene glycol 3350 17gm powd pack PO SCH (08:00)
[2017-10-06] MEDS: docusate sodium 100mg/10ml UD cup PO SCH ×2 (08:00→20:36)
[2017-10-06] MEDS: acetaZOLAMIDE IV 500mg inj IV SCH ×2 (10:07→20:37)
[2017-10-06] MEDS: sennosides 8.6mg tablet PO SCH (20:36)
[2017-10-06] MEDS: insulin glargine (Lantus) pen - multi-dose SQ SCH (21:07)
[2017-10-07] VITALS (28 sets, daily range): BP systolic 117–204; BP diastolic 61–94
[2017-10-07] MEDS: dexmedetomidin/NS 400mcg/100ml 100 ML IV SCH ×11 (00:04→22:45)
[2017-10-07] MEDS: mineral oil/petrolatum ophthal oint EACHEYE SCH ×4 (02:13→20:32)
[2017-10-07 02:53] LABS: BASOPHILS % (AUTO) 0.4 % (0-1); EOSINOPHILS # (AUTO) 0.3 X10'3 (0-0.9); EOSINOPHILS % (AUTO) 2.6 % (0-6); HEMATOCRIT 27.5 % (42.0-52.0); HEMOGLOBIN 8.1 g/dl (14.0-17.9); LYMPHOCYTES # (AUTO) 0.8 X10'3 (1.1-4.8); LYMPHOCYTES % (AUTO) 7.9 % (21-51); MEAN CORPUSCULAR HEMOGLOBIN 21.5 PG (27.0-31.0); MEAN CORPUSCULAR HGB CONC 29.4 % (33.0-36.5); MEAN CORPUSCULAR VOLUME 73.2 FL (78-98); MEAN PLATELET VOLUME 9.1 FL (7.4-10.4); MONOCYTES # (AUTO) 0.6 X10'3 (0-0.9); MONOCYTES % (AUTO) 6.1 % (2-12); NEUTROPHILS # (AUTO) 8.4 X10'3 (1.8-7.7); PLATELET COUNT 434 X10'3 (140-440); RED BLOOD COUNT 3.75 X10'6 (4.70-6.10); RED CELL DISTRIBUTION WIDTH 25.1 % (11.5-14.5); WHITE BLOOD COUNT 10.1 X10'3 (4.5-11.0)
[2017-10-07] MEDS: insulin regular, human vial - multi-dose SQ SCH ×4 (03:00→20:55)
[2017-10-07 03:10] LABS: ALANINE AMINOTRANSFERASE 112 U/L (12-78); ALBUMIN 1.7 G/DL (3.4-5.0); ALBUMIN/GLOBULIN RATIO 0.4 (1.1-1.5); ALKALINE PHOSPHATASE 80 IU/L (46-116); ANION GAP 8 (8-16); ASPARTATE AMINO TRANSFERASE 52 U/L (10-37); BILIRUBIN,TOTAL 0.5 MG/DL (0.1-1.0); BLOOD UREA NITROGEN 33 MG/DL (7-18); BUN/CREATININE RATIO 55.9 (5.4-32.0); CALCIUM 7.9 MG/DL (8.5-10.1); CHLORIDE 109 MMOL/L (99-107); CREATININE 0.59 MG/DL (0.60-1.10); GLUCOSE 165 MG/DL (70-104); PHOSPHORUS 2.5 MG/DL (2.3-4.5); POTASSIUM 3.8 MMOL/L (3.5-5.1); SODIUM 140 MMOL/L (135-145); TOTAL CARBON DIOXIDE 23.2 MMOL/L (24-32); TOTAL PROTEIN 5.7 G/DL (6.4-8.2); eGFR > 90 ML/MIN
[2017-10-07] MEDS: ipratropium/albuterol 3ml nebule NEB SCH ×6 (03:12→23:07)
[2017-10-07 03:30] LABS: ABG BASE EXCESS 0.3 mmol/L (-2.0-3.0); ABG HCO3 23.9 mmol/L (22.0-26.0); ABG OXYGEN SATURATION 96.6 % (95-98); ABG PH (T) 7.444 (7.350-7.450); ABG PO2 (T) 100.4 mmHg (83-108); ALLEN'S TEST Positive; FCOHb 0.7 % (0.5-1.5); FMetHb 0.3 % (0.3-1.12); FO2Hb 95.6 % (94-100); MINUTE VOLUME 14 L/min; PATIENT TEMPERATURE 38.3; PEEP 5 cm H2O; RESPIRATORY RATE 14 b/min; RESPIRATORY RATE (OBSERVED) 21 b/min
[2017-10-07] MEDS: docusate sodium 100mg/10ml UD cup PO SCH ×2 (07:59→20:00)
[2017-10-07] MEDS: multivitamin oral liquid (Certavite) 5ml cup PO SCH (07:59)
[2017-10-07] MEDS: enoxaparin 80mg/0.8ml syringe SUBCUT SCH ×2 (08:00→20:34)
[2017-10-07] MEDS: polyethylene glycol 3350 17gm powd pack PO SCH (08:00)
[2017-10-07] MEDS: bisacodyl 10mg suppository rectal RC SCH (08:00)
[2017-10-07] MEDS: atorvastatin 20mg tablet PO SCH (08:00)
[2017-10-07] MEDS: metoprolol tartrate 25mg tablet PO SCH ×2 (08:00→20:33)
[2017-10-07] MEDS: lactobacillus rhamnosus 10,000 MMU CELLS/CAPSULE PO SCH ×2 (08:00→20:35)
[2017-10-07] MEDS: amiodarone 200mg tablet PO SCH ×2 (08:01→20:33)
[2017-10-07] MEDS: pantoprazole 40 MG vial IV SCH (08:20)
[2017-10-07] MEDS: acetaZOLAMIDE IV 500mg inj IV SCH ×2 (08:21→20:32)
[2017-10-07] MEDS ORDERED: LIDOcaine 1%/PF (10mg/ml) 5ml vial ONE (12:03)
[2017-10-07] MEDS ORDERED: iron dextran complex inj. 25 MG in normal saline 50ml IV soln 49.5 ML IV ONE (13:00)
[2017-10-07] MEDS: IRON DEXTRAN COMPLEX IV SCH (19:30)
[2017-10-07] MEDS: NORMAL SALINE IV SCH (19:30)
[2017-10-07] MEDS: sennosides 8.6mg tablet PO SCH (20:35)
[2017-10-07] MEDS: insulin glargine (Lantus) pen - multi-dose SQ SCH (20:56)
[2017-10-08] VITALS (22 sets, daily range): BP systolic 122–206; BP diastolic 71–122
[2017-10-08] MEDS: dexmedetomidin/NS 400mcg/100ml 100 ML IV SCH ×5 (01:37→09:24)
[2017-10-08] MEDS: insulin regular, human vial - multi-dose SQ SCH ×2 (02:24→08:31)
[2017-10-08] MEDS: mineral oil/petrolatum ophthal oint EACHEYE SCH ×3 (02:33→14:00)
[2017-10-08 02:43] LABS: BASOPHILS % (AUTO) 0.2 % (0-1); EOSINOPHILS # (AUTO) 0.2 X10'3 (0-0.9); EOSINOPHILS % (AUTO) 1.7 % (0-6); HEMATOCRIT 28.6 % (42.0-52.0); HEMOGLOBIN 8.6 g/dl (14.0-17.9); LYMPHOCYTES # (AUTO) 0.8 X10'3 (1.1-4.8); LYMPHOCYTES % (AUTO) 8.5 % (21-51); MEAN CORPUSCULAR HEMOGLOBIN 22.1 PG (27.0-31.0); MEAN CORPUSCULAR HGB CONC 30.3 % (33.0-36.5); MEAN CORPUSCULAR VOLUME 73.1 FL (78-98); MEAN PLATELET VOLUME 8.7 FL (7.4-10.4); MONOCYTES # (AUTO) 0.6 X10'3 (0-0.9); MONOCYTES % (AUTO) 6.6 % (2-12); NEUTROPHILS # (AUTO) 7.6 X10'3 (1.8-7.7); PLATELET COUNT 426 X10'3 (140-440); RED CELL DISTRIBUTION WIDTH 24.7 % (11.5-14.5); WHITE BLOOD COUNT 9.1 X10'3 (4.5-11.0)
[2017-10-08 03:02] LABS: ALANINE AMINOTRANSFERASE 106 U/L (12-78); ALBUMIN 1.7 G/DL (3.4-5.0); ALBUMIN/GLOBULIN RATIO 0.4 (1.1-1.5); ALKALINE PHOSPHATASE 83 IU/L (46-116); ANION GAP 8 (8-16); ASPARTATE AMINO TRANSFERASE 38 U/L (10-37); BILIRUBIN,TOTAL 0.5 MG/DL (0.1-1.0); BLOOD UREA NITROGEN 29 MG/DL (7-18); BUN/CREATININE RATIO 52.7 (5.4-32.0); CALCIUM 7.9 MG/DL (8.5-10.1); CHLORIDE 110 MMOL/L (99-107); CREATININE 0.55 MG/DL (0.60-1.10); GLUCOSE 131 MG/DL (70-104); MAGNESIUM 1.9 MG/DL (1.5-2.4); PHOSPHORUS 2.5 MG/DL (2.3-4.5); POTASSIUM 3.5 MMOL/L (3.5-5.1); SODIUM 143 MMOL/L (135-145); TOTAL CARBON DIOXIDE 24.9 MMOL/L (24-32); TOTAL PROTEIN 5.6 G/DL (6.4-8.2); eGFR > 90 ML/MIN
[2017-10-08] MEDS: ipratropium/albuterol 3ml nebule NEB SCH ×3 (03:31→12:03)
[2017-10-08 03:45] LABS: ABG BASE EXCESS -2.2 mmol/L (-2.0-3.0); ABG HCO3 21.2 mmol/L (22.0-26.0); ABG OXYGEN SATURATION 96.4 % (95-98); ABG PH (T) 7.475 (7.350-7.450); ALLEN'S TEST Positive; FCOHb 0.7 % (0.5-1.5); FMetHb 0.3 % (0.3-1.12); FO2Hb 95.4 % (94-100); PATIENT TEMPERATURE 35.5; PEEP 5 cm H2O; RESPIRATORY RATE 14 b/min; RESPIRATORY RATE (OBSERVED) 17 b/min; TOTAL HEMOGLOBIN 9.7 G/dl (14.0-18.0)
[2017-10-08] MEDS: NORepinephrine 8mg/ 250ml NS 250 ML IV SCH (04:20)
[2017-10-08] MEDS: NORMAL SALINE IV SCH (07:07)
[2017-10-08] MEDS: IRON DEXTRAN COMPLEX IV SCH (07:07)
[2017-10-08] MEDS: midazolam 100mg in NS 100ml 100 ML IV PRN (07:47)
[2017-10-08] MEDS: bisacodyl 10mg suppository rectal RC SCH (08:00)
[2017-10-08] MEDS: docusate sodium 100mg/10ml UD cup PO SCH (08:00)
[2017-10-08] MEDS: polyethylene glycol 3350 17gm powd pack PO SCH (08:00)
[2017-10-08] MEDS: enoxaparin 80mg/0.8ml syringe SUBCUT SCH (08:05)
[2017-10-08] MEDS: atorvastatin 20mg tablet PO SCH (08:05)
[2017-10-08] MEDS: multivitamin oral liquid (Certavite) 5ml cup PO SCH (08:05)
[2017-10-08] MEDS: amiodarone 200mg tablet PO SCH (08:06)
[2017-10-08] MEDS: metoprolol tartrate 25mg tablet PO SCH (08:06)
[2017-10-08] MEDS: lactobacillus rhamnosus 10,000 MMU CELLS/CAPSULE PO SCH (08:06)
[2017-10-08] MEDS: acetaZOLAMIDE IV 500mg inj IV SCH (09:50)
[2017-10-08] MEDS: pantoprazole 40 MG vial IV SCH (09:51)
[2017-10-08] MEDS: morphine 4 MG/ML inj SYRINge IV PRN ×5 (13:57→22:32)
[2017-10-08] MEDS: LORazepam 2 mg/ml vial IV PRN ×3 (14:19→22:14)
[2017-10-08 15:12] LABS: ATYPICAL PANCA <1:20 titer (Neg:<1:20); CYTOPLASMIC (C-ANCA) <1:20 titer (Neg:<1:20); PERINUCLEAR (P-ANCA) <1:20 titer (Neg:<1:20)
[2017-10-08] MEDS: morphine 10mg/0.5ml (conc. morphine) oral syringe PO PRN (18:12)
[2017-10-09] MEDS: morphine 4 MG/ML inj SYRINge IV PRN ×9 (00:54→21:29)
[2017-10-09 02:00] VITALS: BP 122/72
[2017-10-09 05:18] LABS: ANTINUCLEAR ANTIBODIES Negative (Negative)
[2017-10-09 05:30] VITALS: BP 184/83
[2017-10-09 11:00] VITALS: BP 134/80
[2017-10-09 17:30] VITALS: BP 181/80
[2017-10-09] MEDS: LORazepam 2 mg/ml vial IV PRN (22:11)
[2017-10-10] MEDS: morphine 4 MG/ML inj SYRINge IV PRN ×5 (02:58→11:10)
[2017-10-10 06:52] VITALS: BP 166/66
[2017-10-10] MEDS: morphine 10mg/0.5ml (conc. morphine) oral syringe PO PRN ×4 (14:12→22:27)
[2017-10-10] MEDS: LORazepam 2 mg/ml vial IV PRN ×4 (14:20→22:35)
[2017-10-10 18:00] VITALS: BP 162/92
[2017-10-11] MEDS: morphine 10mg/0.5ml (conc. morphine) oral syringe PO PRN ×2 (01:01→05:16)
[2017-10-11] MEDS: morphine 4 MG/ML inj SYRINge IV PRN (03:50)
== END 2017-10-11 07:00 | disposition expired | DRG 870 ==
LOC: ER 13:45 → ED HOLD 16:58 → EDBEDREQ 19:05 → ICU 2S 20:10 → PCU 3S 10-08 22:56
PROVIDERS: ADMIT Internal Medicine Critical Care Medicine; ATTEND Internal Medicine Critical Care Medicine
PROC: 5A1955Z Respiratory Ventilation, Greater than 96 Consecutive Hours (ICD-10-PCS; principal; 2017-09-20)
PROC: 0BH18EZ Insertion of Endotracheal Airway into Trachea, Via Natural or Artificial Opening Endoscopic (ICD-10-PCS; 2017-09-20)
PROC: B32T1ZZ Computerized Tomography (CT Scan) of Left Pulmonary Artery using Low Osmolar Contrast (ICD-10-PCS; 2017-09-20)
PROC: B3201ZZ Computerized Tomography (CT Scan) of Thoracic Aorta using Low Osmolar Contrast (ICD-10-PCS; 2017-09-20)
PROC: B32S1ZZ Computerized Tomography (CT Scan) of Right Pulmonary Artery using Low Osmolar Contrast (ICD-10-PCS; 2017-09-20)
PROC: 02HV33Z Insertion of Infusion Device into Superior Vena Cava, Percutaneous Approach (ICD-10-PCS; 2017-09-20)
PROC: B548ZZA Ultrasonography of Superior Vena Cava, Guidance (ICD-10-PCS; 2017-09-20)
PROC: 0B21XEZ Change Endotracheal Airway in Trachea, External Approach (ICD-10-PCS; 2017-09-26)
PROC: 02HV33Z Insertion of Infusion Device into Superior Vena Cava, Percutaneous Approach (ICD-10-PCS; 2017-09-26)
PROC: 30233N1 Transfusion of Nonautologous Red Blood Cells into Peripheral Vein, Percutaneous Approach (ICD-10-PCS; 2017-09-30)
PROC: BW211ZZ Computerized Tomography (CT Scan) of Abdomen and Pelvis using Low Osmolar Contrast (ICD-10-PCS; 2017-10-03)
DX: A41.9 Sepsis, unspecified organism (principal); J96.21 Acute and chronic respiratory failure with hypoxia; J18.1 Lobar pneumonia, unspecified organism; I13.0 Hypertensive heart and chronic kidney disease with heart failure and stage 1 through stage 4 chronic kidney disease, or unspecified chronic kidney disease; N17.9 Acute kidney failure, unspecified; E87.0 Hyperosmolality and hypernatremia; E11.22 Type 2 diabetes mellitus with diabetic chronic kidney disease; I50.9 Heart failure, unspecified; I48.2 Chronic atrial fibrillation; J96.22 Acute and chronic respiratory failure with hypercapnia; I82.622 Acute embolism and thrombosis of deep veins of left upper extremity; Z68.43 Body mass index [BMI] 50.0-59.9, adult; J44.0 Chronic obstructive pulmonary disease with (acute) lower respiratory infection; N18.3 Chronic kidney disease, stage 3 (moderate); E66.01 Morbid (severe) obesity due to excess calories; E78.00 Pure hypercholesterolemia, unspecified; E78.5 Hyperlipidemia, unspecified; I25.10 Atherosclerotic heart disease of native coronary artery without angina pectoris; G47.33 Obstructive sleep apnea (adult) (pediatric); N40.0 Benign prostatic hyperplasia without lower urinary tract symptoms; R74.0 Nonspecific elevation of levels of transaminase and lactic acid dehydrogenase [LDH]; Z60.2 Problems related to living alone; Z66 Do not resuscitate; Z51.5 Encounter for palliative care; Z56.0 Unemployment, unspecified; Z95.1 Presence of aortocoronary bypass graft; Z95.2 Presence of prosthetic heart valve; Z79.899 Other long term (current) drug therapy; Z79.4 Long term (current) use of insulin; Z79.01 Long term (current) use of anticoagulants; Z85.46 Personal history of malignant neoplasm of prostate; Z87.01 Personal history of pneumonia (recurrent); Z87.891 Personal history of nicotine dependence; Z80.9 Family history of malignant neoplasm, unspecified
CPT/HCPCS: 36415; 36569; 36600; 71045; 71250; 71275; 74018; 74177; 76604; 76937; 80053; 80202; 80305; 81001; 82248; 82272; 82550; 82803; 82948; 83540; 83550; 83605; 83615; 83735; 84100; 84134; 84145; 84260; 84439; 84443; 84480; 84484; 85018; 85025; 85610; 85730; 86038; 86256; 86703; 86738; 86885; 86900; 86901; 86920; 87040; 87070; 87077; 87088; 87186; 93005; 93971; 94002; 94003; 94640; 94760; 96365; 96375; 97110; 97161; 97530; 99291; 99292; A4333; A6209; A6212; A6213; A6255; A6449; A7015; C9113; J0131; J0282; J0692; J0696; J1120; J1644; J1650; J1750; J1815; J1940; J2001; J2020; J2060; J2250; J2270; J2543; J2704; J2997; J3010; J3370; J3480; J3490; J7030; J7040; J7060; J7070; P9016; P9047; Q9963; Q9967